=== PATIENT | male | born 1950 | race Caucasian/White ===

== ENCOUNTER 2019-11-20 07:59 | Outpatient (RCR) | payer MEDICARE, SELFPAY ==
--- NOTE | 2019-11-20 08:40 | PTOPEVAL ---
Thank you for referring this patient to [facility]. Please review, sign, date and return this plan of care MAGNOLIA. I agree with and certify that the following plan of care is medically necessary. Referring Physician Date Admitting Provider: Attending Provider: Dino Avina MD Referring Provider: *PT Outpatient Evaluation Start: 11/20/19 08:05 Freq: Status: Active Protocol: Document 11/20/19 08:06 [email or web address] (Rec: 11/20/19 08:39 [id number]) Therapy Assessment Status Assessment Status Assessment Status Evaluation Evaluation Information Problem Diagnosis low back pain, OA lumbar spine Onset 11/20/18 Subjective Information Pt. reports progressive pain Query Text:As Reported By Patient/ increase over the past year. Family He reports that walking on concrete is the most painful activity. He describes pain along the bilateral greater trochanter. He reports that he enjoys golf, but notes that it has recently increased his pain. Pt. reports he underwent xray of the back and hips, which revealed OA of the lumbar spine. He states that pain does not affect his sleep. He reports that his goal is to decrease his pain with walking and standing. Prior Level of Function Activity Level (Last 3 Months) Occupation retired Hand [employer] Right Activity of Daily Living Ability Independent Indoor/Home Mobility Independent Community Mobility Independent Stairs Ability Independent Functional Cognition (Planning, Shopping Independent , Taking Medications) Cooking Yes Cleaning Yes Laundry Yes Shopping Yes Driving Yes Medications Home Meds (Include: OTC, RX, Vitamins, Pt. is not taking pain Herbals, Dose, Route,and Frequency) medication Query Text:Home Med Entries Will No Longer Recall From Past Visits. Home Meds Must Be Re-entered With Each Visit. Pain Assessment Timing of Pain Assessment Timing of Pain Assessment Pre-Treatment Pain Scale Pain Scale Used Numeric (1 - 10) Self Report Pain Assessment Bilateral Upper Lateral Thigh(s) Reported Pain Level 2 Pain Description Aching Pain Freq
== END 2019-12-17 10:17 | disposition home or self-care (01) ==
LOC: CHSPT 07:59
PROVIDERS: Visit Provider Orthopaedic Surgery
DX: M54.5 Low back pain (principal); M47.896 Other spondylosis, lumbar region
CPT/HCPCS: 97014; 97110; 97140; 97161; G0283

== ENCOUNTER 2020-01-19 11:17 | Outpatient (CLI) | payer MEDICARE, SELFPAY ==
[2020-01-19 11:55] LABS: Hemoglobin A1C 10.6 % (<5.7)
[2020-01-19 13:09] LABS: Alanine Aminotransferase 57 U/L (16-63); Albumin Level 4.3 g/dL (3.4-5.0); Alkaline Phosphatase 93 U/L (46-116); Anion Gap 13.2 mmol/L (7-16); Aspartate Amino Transferase 28 U/L (15-37); Bilirubin,Total 1.2 mg/dL (0.00-1.00); Blood Urea Nitrogen 24 mg/dL (7-18); Carbon Dioxide 27 mmol/L (21-32); Chloride 102 mmol/L (98-108); Cholesterol 97 mg/dL (0-200); Estimated Glomerular Filt Rate > 60; Glucose 215 mg/dL (70-99); HDL Direct 30 mg/dL (40-60); LDL Cholesterol Calculated 53 mg/dL (<130); Osmolality Calculated 296 mOsm/kg (285-295); Potassium 4.2 mmol/L (3.5-5.1); Sodium 138 mmol/L (136-145); Total Protein 7.6 g/dL (6.4-8.2); Triglycerides 68 mg/dL (0-150)
== END 2020-01-19 11:18 | disposition home or self-care (01) ==
PROVIDERS: PCP Internal Medicine; Visit Provider Internal Medicine
DX: I10 Essential (primary) hypertension (principal); E11.9 Type 2 diabetes mellitus without complications
CPT/HCPCS: 36415; 80053; 80061; 83036

== ENCOUNTER 2021-11-09 07:34 | Emergency (ER) | payer MEDICARE, SELFPAY ==
[2021-11-09 07:54] VITALS: BP 156/102; PULSE 102; RESP 20; TEMP 36.3; O2SAT 96
--- NOTE | 2021-11-09 08:03 | ED.NECK ---
HPI - Neck Pain/Injury General Chief Complaint: Neck Pain/Injury Stated Complaint: Neck spasms Source: patient and family Mode of arrival: ambulatory Limitations: no limitations History of Present Illness HPI Narrative: This is a 71-year-old gentleman that presents with neck pain and spasm, with no known injury patient was seen at a [place] yesterday was given a muscle relaxant, but states that he has continued to have this muscle spasm with decreased range of motion his neck no numbness or tingling radiating down his neck are into his shoulders or arms, no fever or chills. complaint: neck pain Onset (ago): day(s) Place: home Severity: moderate Severity scale (1-10): 5 Quality: spasming Duration: constant Relieving factors: immobilization Exacerbating factors: movement of extremity Related Data Home Medications Medication Instructions Recorded Confirmed allopurinol 300 mg tablet 300 mg PO DAILY 11/17/19 aspirin 325 mg tablet 325 mg PO DAILY 11/17/19 atorvastatin 80 mg tablet 80 mg PO DAILY 11/17/19 finasteride 5 mg tablet 5 mg PO DAILY 11/17/19 fosinopril 20 mg tablet 20 mg PO DAILY 11/17/19 glimepiride 4 mg tablet 4 mg PO QAM 11/17/19 latanoprost 0.005 % eye drops 1 drop EACH EYE DAILY 11/17/19 magnesium 200 mg tablet 200 mg PO DAILY 11/17/19 magnesium 200 mg tablet 200 mg PO DAILY 11/17/19 nifedipine 60 mg tablet,extended 60 mg PO DAILY 11/17/19 release 24 hr omeprazole 20 mg capsule,delayed 20 mg PO DAILY 11/17/19 release terazosin 5 mg capsule 5 mg PO DAILY 11/17/19 Allergies Allergy/AdvReac Type Severity Reaction Status Date / Time No Known Allergies Allergy Verified 11/09/21 07:53 Review of Systems Review of Systems: All systems reviewed & are unremarkable except as noted in HPI and below PMFSH Past Medical History Medical History Diabetes Last A1C= 8 Gout Osteoarthritis of lumbar spine Stroke Surgical History Surgical History History of knee surgery Right Total knee replacement, with subsequent patellectomy. Kidney stones Removal Family History Family History Father Diabetes mellitus Hypertension Cerebrovascular accident Social History Social History Smoking status: Never smoker Alcohol intake: current Alcohol use details: occasional Additional living arrangements comments: [facility] Exam Const: General: no acute distress Orientation/consciousness: patient oriented x3 HENMT: Head: normal to inspection Eyes: Conjunctivae: conjunctivae normal Pupils: Equal, round and reactive pupils present Neck: Neck: no lymphadenopathy and no meningeal signs Other: Decreased range of motion and spasm of his neck Chest: Chest palpation & inspection: normal inspection of the chest Resp: Effort & Inspection: normal respiratory effort Cardio: Rate: regular rate Rhythm: regular rhythm GI: GI Palp: Yes Soft to palpation : Testes: Testes normal Urinary Catheter: Urinary Catheter: patent and draining Back/Spine/Pelvis: Back: no CVA tenderness Skin: General skin exam: normal color Rashes: no rashes Neuro: General: patient oriented x3, moves all extremities, no meningeal signs and CN's II-XI intact bilaterally Extrem: General: normal to inspection and no pedal edema Psych: Mental Status: mental status grossly normal Course Course Emergency Course: patient received 30mg IM injection of Toradol, advised to call his primary care physician and follow-up advised to use a heating pad after reassessment of patient is neck spasm is mildly improved. Vital Signs Vital signs: Vital Signs Temperature 36.3 C L 11/09/21 07:54 Pulse Rate 102 H 11/09/21 07:54 Respiratory Rate 20 11/09/21 07:54 Blood Pressure 156/
[2021-11-09] MEDS: KETOROLAC 30 MG/ML VIAL (*BKC) IM (08:07)
== END 2021-11-09 08:27 | disposition home or self-care (01) ==
PROVIDERS: Emergency Provider Emergency Medicine; PCP Internal Medicine
DX: M43.6 Torticollis (principal); S16.1XXA Strain of muscle, fascia and tendon at neck level, initial encounter
CPT/HCPCS: 96372; 99283; J1885

== ENCOUNTER 2024-06-02 21:07 | Emergency (ER) | payer MEDICARE, SELFPAY ==
[2024-06-02 21:07] VITALS: BP 163/84; PULSE 102; RESP 18; TEMP 37.2; O2SAT 94
--- NOTE | 2024-06-02 22:17 | ED.URI ---
HPI - URI/Sore Throat General Chief Complaint: Upper Respiratory Infection Stated Complaint: URI Time Seen by Provider: 06/02/24 21:23 History of Present Illness HPI Narrative: Pt presents with low grade fever and mild cough and body aches today. Granchildren who they were with recently tested positive for covid. Related Data Home Medications Medication Instructions Recorded Confirmed allopurinol 300 mg tablet 300 mg PO DAILY 11/17/19 aspirin 325 mg tablet 325 mg PO DAILY 11/17/19 atorvastatin 80 mg tablet 80 mg PO DAILY 11/17/19 finasteride 5 mg tablet 5 mg PO DAILY 11/17/19 fosinopril 20 mg tablet 20 mg PO DAILY 11/17/19 glimepiride 4 mg tablet 4 mg PO QAM 11/17/19 latanoprost 0.005 % eye drops 1 drop ophthalmic (eye) DAILY 11/17/19 magnesium 200 mg tablet 200 mg PO DAILY 11/17/19 magnesium 200 mg tablet 200 mg PO DAILY 11/17/19 nifedipine 60 mg tablet,extended 60 mg PO DAILY 11/17/19 release 24 hr omeprazole 20 mg capsule,delayed 20 mg PO DAILY 11/17/19 release terazosin 5 mg capsule 5 mg PO DAILY 11/17/19 Allergies Allergy/AdvReac Type Severity Reaction Status Date / Time No Known Allergies Allergy Verified 01/21/23 15:28 Review of Systems Review of Systems: All systems reviewed & are unremarkable except as noted in HPI and below PMFSH Past Medical History Medical History Diabetes Last A1C= 8 Gout Osteoarthritis of lumbar spine Stroke Surgical History Surgical History History of knee surgery Right Total knee replacement, with subsequent patellectomy. Kidney stones Removal Family History Family History (System 01/21/23 @ 15:28 by Shelbie Helm) Father Diabetes mellitus Hypertension Cerebrovascular accident Social History Social History (System 01/21/23 @ 15:28 by Shelbie Helm) Smoking status: Never smoker Alcohol intake: current Alcohol use details: occasional Living arrangements: with family Additional living arrangements comments: [facility] Occupation/Education: retired Exam Const: General: healthy appearing Nutritional Appearance: well nourished Orientation/consciousness: patient oriented x3 Limitations: no limitations HENMT: Face/Nose/Sinus: Normal external nose present Mouth: Yes Normal oral and palatal mucosa present Neck: Neck: normal visual inspection, no lymphadenopathy and no meningeal signs Resp: Effort & Inspection: normal respiratory effort Auscultation: clear to auscultation bilaterally Cardio: Rate: regular rate Rhythm: regular rhythm GI: GI Palp: Yes Soft to palpation and No Tenderness to palpation present (GI) Auscultation: normal bowel sounds Skin: General skin exam: normal color Rashes: no rashes Wounds: no wounds Neuro: General: patient oriented x3, moves all extremities, no meningeal signs and no focal motor deficits Speech: normal speech Extrem: General: normal to inspection and no clubbing, cyanosis or edema Psych: Mental Status: mental status grossly normal Affect: normal affect Attitude: cooperative MDM - URI/Sore Throat MDM Narrative Medical decision making narrative: pt presents with covid symptoms will swab for covid flu rsv. covid positive. not high risk so supportive care no paxlovid. Lab Data Labs: Lab Results 06/02/24 Range/Units 22:59 Influenza A (RT-PCR) Negative (Negative) Influenza B (RT-PCR) Negative (Negative) RSV (RT-PCR) Negative (Negative) SARS-CoV-2 RNA (RT-PCR) Positive A (Negative) Discharge Plan Discharge Clinical Impression: COVID Patient Disposition: Home, Self-Care Condition: Stable Instructions: Antibiotic Form, COVID-19 (Coronavirus Disease 2019) (ED) Prescriptions: No Action tramadol [Ultram] 50 mg tablet 50 mg PO HS Qty: 20 0RF allopurinol 300 mg tablet 300 mg PO DAILY aspirin 325 mg table
[2024-06-02 22:38] LABS: SARS-CoV-2 RNA PCR Positive (Negative)
[2024-06-02 22:43] LABS: Influenza A QL RT-PCR Negative (Negative); Influenza B QL RT-PCR Negative (Negative); RSV RNA, RT-PCR Negative (Negative)
[2024-06-02 22:55] VITALS: BP 157/80; PULSE 95; RESP 18; TEMP 37.2; O2SAT 94
== END 2024-06-02 22:55 | disposition home or self-care (01) ==
PROVIDERS: Emergency Provider Emergency Medicine; PCP Internal Medicine
DX: U07.1 COVID-19 (principal); E11.9 Type 2 diabetes mellitus without complications
CPT/HCPCS: 87637; 99283

== ENCOUNTER 2024-09-08 09:34 | Outpatient (CLI) | payer MEDICARE, SELFPAY ==
[2024-09-08 09:47] LABS: Basophils Absolute Auto 0.04 K/mm3 (0.00-0.10); Basophils Percent Auto 0.5 % (0.0-1.0); Eosinophils Absolute Auto 0.19 K/mm3 (0.02-0.50); Eosinophils Percent Auto 2.4 % (1.0-6.0); Hematocrit 47.1 % (37.0-46.0); Hemoglobin 16.1 g/dL (12.4-15.3); Immature Granulocyte Absolute 0.02 K/mm3 (0.00-0.00); Immature Granulocyte Percent A 0.3 % (0.0-0.0); Lymphocytes Absolute Auto 1.71 K/mm3 (1.10-4.50); Mean Corpuscular HGB Conc 34.2 g/dL (32-36); Mean Corpuscular Hemoglobin 31.1 pg (27.0-31.0); Mean Corpuscular Volume 90.9 fL (78.0-102.0); Mean Platelet Volume 10.5 fl (8.7-11.0); Monocytes Absolute Auto 0.63 K/mm3 (0.10-0.90); Monocytes Percent Auto 8.1 % (2.0-11.0); Neutrophils Absolute Auto 5.18 K/mm3 (1.70-7.20); Neutrophils Percent Auto 66.7 % (50.0-70.0); Platelet Count Result 213 K/mm3 (150-420); Red Blood Count 5.18 M/mm3 (4.70-6.10); Red Cell Distribution Width 12.9 % (11.6-14.4); White Blood Count 7.8 K/mm3 (4.8-10.8)
[2024-09-08 09:59] LABS: Hemoglobin A1C 6.4 % (<5.7)
[2024-09-08 10:24] LABS: Alanine Aminotransferase 47 U/L (16-63); Albumin Level 3.9 g/dL (3.4-5.0); Alkaline Phosphatase 82 U/L (46-116); Anion Gap 10 mmol/L (4-12); Aspartate Amino Transferase 24 U/L (15-37); Bilirubin,Total 0.8 mg/dL (0.00-1.00); Blood Urea Nitrogen 14 mg/dL (7-18); Carbon Dioxide 29 mmol/L (21-32); Chloride 102 mmol/L (98-108); Cholesterol 148 mg/dL (0-200); Estimated Glomerular Filt Rate > 60; Glucose 145 mg/dL (70-99); HDL Direct 42 mg/dL (40-60); LDL Cholesterol Calculated 88 mg/dL (<130); Osmolality Calculated 295 mOsm/kg (285-295); Potassium 4.4 mmol/L (3.5-5.1); Sodium 141 mmol/L (136-145); Total Protein 7.3 g/dL (6.4-8.2); Triglycerides 88 mg/dL (0-150)
== END 2024-09-08 09:35 | disposition home or self-care (01) ==
LOC: CHSLAB 09:37
PROVIDERS: PCP Internal Medicine; Visit Provider Internal Medicine
DX: I10 Essential (primary) hypertension (principal); E11.9 Type 2 diabetes mellitus without complications
CPT/HCPCS: 36415; 80053; 80061; 83036; 85025

== ENCOUNTER 2024-09-22 13:55 | Outpatient (CLI) | payer MEDICARE, SELFPAY ==
[2024-09-22 14:14] LABS: Basophils Absolute Auto 0.05 K/mm3 (0.00-0.10); Basophils Percent Auto 0.4 % (0.0-1.0); Eosinophils Absolute Auto 0.27 K/mm3 (0.02-0.50); Eosinophils Percent Auto 2.3 % (1.0-6.0); Hematocrit 48.4 % (37.0-46.0); Hemoglobin 16.7 g/dL (12.4-15.3); Immature Granulocyte Absolute 0.06 K/mm3 (0.00-0.00); Immature Granulocyte Percent A 0.5 % (0.0-0.0); Lymphocytes Absolute Auto 2.25 K/mm3 (1.10-4.50); Lymphocytes Percent Auto 18.8 % (18.0-42.0); Mean Corpuscular HGB Conc 34.5 g/dL (32-36); Mean Corpuscular Hemoglobin 31.5 pg (27.0-31.0); Mean Corpuscular Volume 91.3 fL (78.0-102.0); Mean Platelet Volume 10.7 fl (8.7-11.0); Monocytes Absolute Auto 0.85 K/mm3 (0.10-0.90); Monocytes Percent Auto 7.1 % (2.0-11.0); Neutrophils Absolute Auto 8.46 K/mm3 (1.70-7.20); Neutrophils Percent Auto 70.9 % (50.0-70.0); Platelet Count Result 227 K/mm3 (150-420); Red Cell Distribution Width 12.8 % (11.6-14.4); White Blood Count 11.9 K/mm3 (4.8-10.8)
== END 2024-09-22 13:56 | disposition home or self-care (01) ==
LOC: CHSLAB 13:58
PROVIDERS: PCP Internal Medicine; Visit Provider Internal Medicine
DX: R89.9 Unspecified abnormal finding in specimens from other organs, systems and tissues (principal)
CPT/HCPCS: 36415; 85025

== ENCOUNTER 2024-12-16 14:31 | Outpatient (CLI) | payer MEDICARE, SELFPAY ==
[2024-12-16 14:52] LABS: Basophils Percent Auto 0.3 % (0.2-1.2); Eosinophils Absolute Auto 0.2 K/mm3 (0-0.3); Eosinophils Percent Auto 1.6 % (0-4.4); Hematocrit 48.7 % (42.0-52.0); Hemoglobin 16.9 g/dL (14.0-18.0); Immature Granulocyte Absolute 0.04 K/mm3 (0.00-0.031); Immature Granulocyte Percent A 0.3 % (0-0.5); Lymphocytes Absolute Auto 1.85 K/mm3 (0.9-3.2); Lymphocytes Percent Auto 15.5 % (18.3-44.2); Mean Corpuscular HGB Conc 34.7 g/dl (32-36); Mean Corpuscular Hemoglobin 31.5 pg (26-34); Mean Corpuscular Volume 90.9 fl (80-100); Mean Platelet Volume 10.7 fl (7.4-10.4); Monocytes Absolute Auto 0.9 K/mm3 (0.1-0.6); Monocytes Percent Auto 7.6 % (2.6-8.5); Neutrophils Absolute Auto 8.9 K/mm3 (1.3-6.7); Neutrophils Percent Auto 74.7 % (45.5-73.1); Platelet Count Result 219 k/mm3 (150-375); Red Blood Count 5.36 M/mm3 (4.6-6.20); Red Cell Distribution Width 12.6 % (11.5-14.5); White Blood Count 11.9 K/mm3 (4.5-10.0)
--- OUTSIDE RECORDS SUMMARY | 2024-12-16 16:48 | XMS_ITS | Data Portability ---
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 Olu if he gets worse he was told to go to the emergency room Not available 10/05/2023 16:04:24 Plan of Treatment Reminders Order Date Submit Date Provider Last Modified By Organization Details Last Modified Time Details Appointments None recorded. Lab urinalysis, microscopic 2022 023 [email or web address] Not available 3 09:16:21 culture, urine + sensitivity 2022 023 cyahl Not available 3 09:16:27 HbA1c (hemoglobin A1c), blood 2022 023 [email or web address] Not available 3 11:53:26 CBC w/ auto diff 2022 023 [email or web address] Not available 3 14:26:48 lipid panel, serum 2022 023 [email or web address] Not available 3 14:26:48 CMP, serum or plasma 2022 023 Not available 3 14:26:48 Referral None recorded. Procedures None recorded. Surgeries None recorded. Imaging None recorded. Medication Orders Cipro 500 mg tablet 2022 023 [email or web address] [facility]/Pharmacy #[id number], [address] [place], [address], 3 15:59:56 Diflucan 100 mg tablet 2022 023 [email or web address] [facility]/Pharmacy #[id number], [address] [place], [address], 3 13:02:32 Patient TargetsNo targets recorded. Patient InstructionsNo instructions recorded. Reason for Referral None Reported. Results Created Date Observation Date Name Description Value Unit Range Abnormal Flag Note LastModifiedBy Organization Detail LastModifiedTime 04/05/20 22 04/05/2022 COMPR EHENS ELIZABETH METAB OLIC PANEL sodium 140 mmol/ L 137-14 5 Not Available [facility] (Lab) [address] [place], [address], 04/05/2022 18:54:21 04/05/20 22 04/05/2022 COMPR EHENS ELIZABETH METAB OLIC PANEL potassium 4.6 mmol/ L 3.5-5. 1 Not Available [facility] (Lab) [address] [place], [address], 04/05/2022 18:54:21 04/05/20 22 04/05/2022 COMPR EHENS ELIZABETH METAB OLIC PANEL chloride 105 mmol/ L 98-107 Not Available [facility] (Lab) [address] [place], [address], 04/05/2022 18:54:21 04/05/20 22 04/05/2022 COMPR EHENS ELIZABETH METAB OLIC PANEL carbon dioxide 27 mmol/ L 22-30 Not Available [facility] (Lab) [address] [place], [address], 04/05/2022 18:54:21 04/05/20 22 04/05/2022 COMPR EHENS ELIZABETH METAB OLIC PANEL anion gap 12.6 mmol/ L 14-22 low Not Available [facility] (Lab) [address] [place], [address], 04/05/2022 18:54:21 04/05/20 22 04/05/2022 COMPR EHENS ELIZABETH METAB OLIC PANEL glucose 153 mg/dL 70-99 high Not Available [facility] (Lab) [address] [place], [address], 04/05/2022 18:54:21 04/05/20 22 04/05/2022 COMPR EHENS ELIZABETH METAB OLIC PANEL BUN 27 mg/dL 8-19 high Not Available [facility] (Lab) [address] [place], [address], 04/05/2022 18:54:21 04/05/20 22 04/05/2022 COMPR EHENS ELIZABETH METAB OLIC PANEL creatinine 1.09 mg/dL 0.66-1 .25 Not Available [facility] (Lab) [address] [place], [address], 04/05/2022 18:54:21 04/05/20 22 04/05/2022 COMPR EHENS ELIZABETH METAB OLIC PANEL GFR >60 Refer ence Range : Pitkin ge GFR Healt hy Adult : >60 mL/mi n/1.7 3 m2 Chron ic Kidne y Disea se: 15-60 mL/mi n/1.7 3 m2 Kidne y Failu re: <15/m L/min /1.73 m2 www.n iddk. nih.g ov The MDRD study equat ion has not been valid ated in child arthur <18 years of age; pregn ant women ; the elder ly >85 years of age; or in some racia l or ethni c subgr oups, such as Hispa nics. Outsi de the valid ated lane eters , estim ated GFR is less accur ate, requi ring clini geraldine judgm ent on a case- by-ca se basis . Clini geraldine inter preta tion for other races and ages must be made by the clini erlinda. The MDRD study equat ion has not been valid ated for the evalu ation of serum creat inine relat ed to nutri lakshmi l statu s or medic ation usage . For perso ns <18 years of age, a pedia tric GFR calcu lator is avail able on the [facility] websi te: https ://patric w.kid priscila.o rg/pr ofess ional s/kdo qi/gf r_cal culat or Not Available [facility] (Lab) [address] [place], [address], 04/05/2022 18:54:21 04/05/20 22 04/05/2022 COMPR EHENS ELIZABETH METAB OLIC PANEL alkaline phosphatase 73 U/L 38-126 Not Available [facility] (Lab) [address] [place], [address], 04/05/2022 18:54:21 04/05/20 22 04/05/2022 COMPR EHENS ELIZABETH METAB OLIC PANEL alanine aminotransfe rase 44 U/L 0-50 Not Available [facility] (Lab) [address] [place], [address], 04/05/2022 18:54:21 04/05/20 22 04/05/2022 COMPR EHENS ELIZABETH METAB OLIC PANEL aspartate aminotransfe rase 43 U/L 15-46 Not Available [facility] (Lab) [address] [place], [address], 04/05/2022 18:54:21 04/05/20 22 04/05/2022 COMPR EHENS ELIZABETH METAB OLIC PANEL bilirubin, total 1.10 mg/dL 0.20-1 .30 Not Available [facility] (Lab) [address] [place], [address], 04/05/2022 18:54:21 04/05/20 22 04/05/2022 COMPR EHENS ELIZABETH METAB OLIC PANEL calcium 9.5 mg/dL 8.4-10 .2 Not Available [facility] (Lab) [address] [place], [address], 04/05/2022 18:54:21 04/05/20 22 04/05/2022 COMPR EHENS ELIZABETH METAB OLIC PANEL total protein 8.0 g/dL 6.3-8. 2 Not Available [facility] (Lab) [address] [place], [address], 04/05/2022 18:54:21 04/05/20 22 04/05/2022 COMPR EHENS ELIZABETH METAB OLIC PANEL albumin 4.6 g/dL 3.0-4. 4 high Not Available [facility] (Lab) [address] [place], [address], 04/05/2022 18:54:21 04/05/20 22 04/05/2022 COMPR EHENS ELIZABETH METAB OLIC PANEL globulin 3.4 g/dL 2.6-4. 2 Not Available [facility] (Lab) [address] [place], [address], 04/05/2022 18:54:21 04/05/20 22 04/05/2022 COMPR EHENS ELIZABETH METAB OLIC PANEL A/G ratio 1.4 ratio 1.0-2. 0 Not Available [facility] (Lab) [address] [place], [address], 04/05/2022 18:54:21 04/05/20 22 04/05/2022 LIPID PANEL cholesterol 131 mg/dL 140-19 9 low [facility] NSUS RECOM MENDA TION FOR EMANUEL STERO L: ADULT CHILD LOW RISK: <200 <170 BORDE RLINE : <200- 239 ----- HIGH RISK: >240 >200 Not Available [facility] (Lab) [address] [place], [address], 04/05/2022 18:54:20 04/05/20 22 04/05/2022 LIPID PANEL triglyceride s 118 mg/dL 0-150 [facility] NSUS REPOR T RECOM MENDA TION FOR TRIGL YCERI GÓMEZ: ADULT CHILD LOW RISK: <150 ----- BODER LINE: 150-1 99 ----- HIGH RISK: >200 ----- Not Available [facility] (Lab) [address] [place], [address], 04/05/2022 18:54:20 04/05/20 22 04/05/2022 LIPID PANEL HDL cholesterol 37 mg/dL 40- low Not Available [facility] (Lab) [address] [place], [address], 04/05/2022 18:54:20 04/05/20 22 04/05/2022 LIPID PANEL LDL cholesterol, calculated 70 mg/dL 0-130 [facility] NSUS REPOR T RECOM MENDA TIONS FOR LDL: ADULT CHILD LOW RISK <130 <110 (OPTI MAL LDL) <100 ----- BORDE RLINE : 130-1 59 ----- HIGH RISK: >160 >130 A TRIGL YCERI DE RESUL T >400 INVAL IDATE S THE CALCU LATIO N FOR LDL FRACT IONAT ION - THE LDL RESUL T WILL NOT BE REPOR EMILE. Not Available [facility] (Lab) [address] [place], [address], 04/05/2022 18:54:20 04/05/20 22 04/05/2022 HEMOG LOBIN A1C HA1C 7.8 % 4.0-6. 0 high Diabe jarocho Scree douglas Crite grayson: <5.7% Consi stent with absen ce of diabe jarocho 5.7-6 .4% Consi stent with incre ased risk for diabe jarocho (pred iabet es) >OR=6 .5% Consi stent with diabe jarocho REFER ENCE: Diabe jarocho Care 2016, 39(Luna ppl.1 ):s13 -s22 Not Available [facility] (Lab) [address] [place], [address], 04/05/2022 14:44:02 08/02/2008/02/2022 HEMOG LOBIN A1C HA1C 6.6 % 4.0-6. 0 high Diabe jarocho Edgare douglas Crite grayson: <5.7% Consi stent with absen ce of diabe jarocho 5.7-6 .4% Consi stent with incre ased risk for diabe jarocho (pred iabet es) >OR=6 .5% Consi stent with diabe jarocho REFER ENCE: Diabe jarocho Care 2016, 39(Luna ppl.1 ):s13 -s22 Not Available [facility] (Lab) [address] [place], [address], 08/02/2022 21:14:28 08/02/20 22 08/02/2022 LIPID PANEL cholesterol 118 mg/dL 140-19 9 low [facility] NSUS RECOM MENDA TION FOR EMANUEL STERO L: ADULT CHILD LOW RISK: <200 <170 BORDE RLINE : <200- 239 ----- HIGH RISK: >240 >200 Not Available [facility] (Lab) [address] [place], [address], 08/02/2022 20:27:55 08/02/20 22 08/02/2022 LIPID PANEL triglyceride s 106 mg/dL 0-150 [facility] NSUS REPOR T RECOM MENDA TION FOR TRIGL YCERI GÓMEZ: ADULT CHILD LOW RISK: <150 ----- BODER LINE: 150-1 99 ----- HIGH RISK: >200 ----- Not Available [facility] (Lab) [address] [place], [address], 08/02/2022 20:27:55 08/02/20 22 08/02/2022 LIPID PANEL HDL cholesterol 36 mg/dL 40- low Not Available [facility] (Lab) [address] [place], [address], 08/02/2022 20:27:55 08/02/20 22 08/02/2022 LIPID PANEL LDL cholesterol, calculated 61 mg/dL 0-130 [facility] NSUS REPOR T RECOM MENDA TIONS FOR LDL: ADULT CHILD LOW RISK <130 <110 (OPTI MAL LDL) <100 ----- BORDE RLINE : 130-1 59 ----- HIGH RISK: >160 >130 A TRIGL YCERI DE RESUL T >400 INVAL IDATE S THE CALCU LATIO N FOR LDL FRACT IONAT ION - THE LDL RESUL T WILL NOT BE REPOR EMILE. Not Available [facility] (Lab) [address] [place], [address], 08/02/2022 20:27:55 08/02/2008/02/2022 COMPR EHENS ELIZABETH METAB OLIC PANEL sodium 141 mmol/ L 137-14 5 Not Available [facility] (Lab) [address] [place], [address], 08/02/2022 20:27:50 08/02/20 22 08/02/2022 COMPR EHENS ELIZABETH METAB OLIC PANEL potassium 4.7 mmol/ L 3.5-5. 1 Not Available [facility] (Lab) [address] [place], [address], 08/02/2022 20:27:50 08/02/20 22 08/02/2022 COMPR EHENS ELIZABETH METAB OLIC PANEL chloride 102 mmol/ L 98-107 Not Available [facility] (Lab) [address] [place], [address], 08/02/2022 20:27:50 08/02/20 22 08/02/2022 COMPR EHENS ELIZABETH METAB OLIC PANEL carbon dioxide 28 mmol/ L 22-30 Not Available [facility] (Lab) [address] [place], [address], 08/02/2022 20:27:50 08/02/20 22 08/02/2022 COMPR EHENS ELIZABETH METAB OLIC PANEL anion gap 15.7 mmol/ L 14-22 Not Available [facility] (Lab) [address] [place], [address], 08/02/2022 20:27:50 08/02/20 22 08/02/2022 COMPR EHENS ELIZABETH METAB OLIC PANEL glucose 117 mg/dL 70-99 high Not Available [facility] (Lab) [address] [place], [address], 08/02/2022 20:27:50 08/02/20 22 08/02/2022 COMPR EHENS ELIZABETH METAB OLIC PANEL BUN 23 mg/dL 8-19 high Not Available [facility] (Lab) [address] [place], [address], 08/02/2022 20:27:50 08/02/20 22 08/02/2022 COMPR EHENS ELIZABETH METAB OLIC PANEL creatinine 0.98 mg/dL 0.66-1 .25 Not Available [facility] (Lab) [address] [place], [address], 08/02/2022 20:27:50 08/02/20 22 08/02/2022 COMPR EHENS ELIZABETH METAB OLIC PANEL GFR >60 Refer ence Range : Pitkin ge GFR Healt hy Adult : >60 mL/mi n/1.7 3 m2 Chron ic Kidne y Disea se: 15-60 mL/mi n/1.7 3 m2 Kidne y Failu re: <15/m L/min /1.73 m2 www.n iddk. nih.g ov The MDRD study equat ion has not been valid ated in child arthur <18 years of age; pregn ant women ; the elder ly >85 years of age; or in some racia l or ethni c subgr oups, such as Hispa nics. Outsi de the valid ated lane eters , estim ated GFR is less accur ate, requi ring clini geraldine judgm ent on a case- by-ca se basis . Clini geraldine inter preta tion for other races and ages must be made by the clini erlinda. The MDRD study equat ion has not been valid ated for the evalu ation of serum creat inine relat ed to nutri lakshmi l statu s or medic ation usage . For perso ns <18 years of age, a pedia tric GFR calcu lator is avail able on the [facility] websi te: https ://ww w.kid priscila.o rg/pr ofess ional s/kdo qi/gf r_cal culat or Not Available [facility] (Lab) [address] [place], [address], 08/02/2022 20:27:50 08/02/20 22 08/02/2022 COMPR EHENS ELIZABETH METAB OLIC PANEL alkaline phosphatase 84 U/L 38-126 Not Available [facility] (Lab) [address] [place], [address], 08/02/2022 20:27:50 08/02/20 22 08/02/2022 COMPR EHENS ELIZABETH METAB OLIC PANEL alanine aminotransfe rase 38 U/L 0-50 Not Available [facility] (Lab) [address] [place], [address], 08/02/2022 20:27:50 08/02/20 22 08/02/2022 COMPR EHENS ELIZABETH METAB OLIC PANEL aspartate aminotransfe rase 33 U/L 15-46 Not Available [facility] (Lab) [address] [place], [address], 08/02/2022 20:27:50 08/02/20 22 08/02/2022 COMPR EHENS ELIZABETH METAB OLIC PANEL bilirubin, total 1.10 mg/dL 0.20-1 .30 Not Available [facility] (Lab) [address] [place], [address], 08/02/2022 20:27:50 08/02/20 22 08/02/2022 COMPR EHENS ELIZABETH METAB OLIC PANEL calcium 9.7 mg/dL 8.4-10 .2 Not Available [facility] (Lab) [address] [place], [address], 08/02/2022 20:27:50 08/02/20 22 08/02/2022 COMPR EHENS ELIZABETH METAB OLIC PANEL total protein 8.4 g/dL 6.3-8. 2 high Not Available [facility] (Lab) [address] [place], [address], 08/02/2022 20:27:50 08/02/20 22 08/02/2022 COMPR EHENS ELIZABETH METAB OLIC PANEL albumin 4.9 g/dL 3.0-4. 4 high Not Available [facility] (Lab) [address] [place], [address], 08/02/2022 20:27:50 08/02/20 22 08/02/2022 COMPR EHENS ELIZABETH METAB OLIC PANEL globulin 3.5 g/dL 2.6-4. 2 Not Available [facility] (Lab) [address] [place], [address], 08/02/2022 20:27:50 08/02/20 22 08/02/2022 COMPR EHENS ELIZABETH METAB OLIC PANEL A/G ratio 1.4 ratio 1.0-2. 0 Not Available [facility] (Lab) [address] [place], [address], 08/02/2022 20:27:50 11/29/19 23 11/29/2022 HEMOG LOBIN A1C HA1C 6.6 % 4.0-6. 0 high Diabe jarocho Scree douglas Crite grayson: <5.7% Consi stent with absen ce of diabe jarocho 5.7-6 .4% Consi stent with incre ased risk for diabe jarocho (pred iabet es) >OR=6 .5% Consi stent with diabe jarocho REFER ENCE: Diabe jarocho Care 2016, 39(Luna ppl.1 ):s13 -s22 Not Available [facility] (Lab) [address] [place], [address], 11/29/2022 19:51:03 11/29/19 23 11/29/2022 LIPID PANEL cholesterol 113 mg/dL 140-19 9 low [facility] NSUS RECOM MENDA TION FOR EMANUEL STERO L: ADULT CHILD LOW RISK: <200 <170 BORDE RLINE : <200- 239 ----- HIGH RISK: >240 >200 Not Available [facility] (Lab) [address] [place], [address], 11/29/2022 17:50:09 11/29/19 23 11/29/2022 LIPID PANEL triglyceride s 92 mg/dL 0-150 [facility] NSUS REPOR T RECOM MENDA TION FOR TRIGL YCERI GÓMEZ: ADULT CHILD LOW RISK: <150 ----- BODER LINE: 150-1 99 ----- HIGH RISK: >200 ----- Not Available [facility] (Lab) [address] [place], [address], 11/29/2022 17:50:09 11/29/19 23 11/29/2022 LIPID PANEL HDL cholesterol 40 mg/dL 40- Not Available [facility] (Lab) [address] [place], [address], 11/29/2022 17:50:09 11/29/19 23 11/29/2022 LIPID PANEL LDL cholesterol, calculated 55 mg/dL 0-130 [facility] NSUS REPOR T RECOM MENDA TIONS FOR LDL: ADULT CHILD LOW RISK <130 <110 (OPTI MAL LDL) <100 ----- BORDE RLINE : 130-1 59 ----- HIGH RISK: >160 >130 A TRIGL YCERI DE RESUL T >400 INVAL IDATE S THE CALCU LATIO N FOR LDL FRACT IONAT ION - THE LDL RESUL T WILL NOT BE REPOR EMILE. Not Available [facility] (Lab) [address] [place], [address], 11/29/2022 17:50:09 11/29/19 23 11/29/2022 COMPR EHENS ELIZABETH METAB OLIC PANEL sodium 142 mmol/ L 137-14 5 Not Available [facility] (Lab) [address] [place], [address], 11/29/2022 17:50:05 11/29/19 23 11/29/2022 COMPR EHENS ELIZABETH METAB OLIC PANEL potassium 5.0 mmol/ L 3.5-5. 1 Not Available [facility] (Lab) [address] [facility] [place], [address], 11/29/2022 17:50:05 11/29/19 23 11/29/2022 COMPR EHENS ELIZABETH METAB OLIC PANEL chloride 103 mmol/ L 98-107 Not Available [facility] (Lab) [address] [place], [address], 11/29/2022 17:50:05 11/29/19 23 11/29/2022 COMPR EHENS ELIZABETH METAB OLIC PANEL carbon dioxide 28 mmol/ L 22-30 Not Available [facility] (Lab) [address] [place], [address], 11/29/2022 17:50:05 11/29/19 23 11/29/2022 COMPR EHENS ELIZABETH METAB OLIC PANEL anion gap 16.0 mmol/ L 14-22 Not Available [facility] (Lab) [address] [place], [address], 11/29/2022 17:50:05 11/29/19 23 11/29/2022 COMPR EHENS ELIZABETH METAB OLIC PANEL glucose 134 mg/dL 70-99 high Not Available [facility] (Lab) [address] [place], [address], 11/29/2022 17:50:05 11/29/19 23 11/29/2022 COMPR EHENS ELIZABETH METAB OLIC PANEL BUN 20 mg/dL 8-19 high Not Available [facility] (Lab) [address] [place], [address], 11/29/2022 17:50:05 11/29/1911/29/2022 COMPR EHENS ELIZABETH METAB OLIC PANEL creatinine 0.99 mg/dL 0.66-1 .25 Not Available [facility] (Lab) [address] [place], [address], 11/29/2022 17:50:05 11/29/19 23 11/29/2022 COMPR EHENS ELIZABETH METAB OLIC PANEL GFR >60 Refer ence Range : Pitkin ge GFR Healt hy Adult : >60 mL/mi n/1.7 3 m2 Chron ic Kidne y Disea se: 15-60 mL/mi n/1.7 3 m2 Kidne y Failu re: <15/m L/min /1.73 m2 www.n iddk. nih.g ov The MDRD study equat ion has not been valid ated in child arthur <18 years of age; pregn ant women ; the elder ly >85 years of age; or in some racia l or ethni c subgr oups, such as Hisid nics. Outsi de the valid ated lane eters , estim ated GFR is less accur ate, requi ring clini geraldine judgm ent on a case- by-ca se basis . Clini geraldine inter preta tion for other races and ages must be made by the clini erlinda. The MDRD study equat ion has not been valid ated for the evalu ation of serum creat inine relat ed to nutri lakshmi l statu s or medic ation usage . For perso ns <18 years of age, a pedia tric GFR calcu lator is avail able on the [facility] websi te: https ://patric francois.wayne mi/pr mary gerberal s/xino qi/gf r_cal culat or Not Available [facility] (Lab) [address] [place], [address], 11/29/2022 17:50:05 11/29/1911/29/2022 COMPR EHENS ELIZABETH METAB OLIC PANEL alkaline phosphatase 96 U/L 38-126 Not Available [facility] (Lab) [address] [place], [address], 11/29/2022 17:50:05 11/29/19 23 11/29/2022 COMPR EHENS ELIZABETH METAB OLIC PANEL alanine aminotransfe rase 41 U/L 0-50 Not Available [facility] (Lab) [address] [place], [address], 11/29/2022 17:50:05 11/29/19 23 11/29/2022 COMPR EHENS ELIZABETH METAB OLIC PANEL aspartate aminotransfe rase 35 U/L 15-46 Not Available [facility] (Lab) [address] [place], [address], 11/29/2022 17:50:05 11/29/19 23 11/29/2022 COMPR EHENS ELIZABETH METAB OLIC PANEL bilirubin, total 1.00 mg/dL 0.20-1 .30 Not Available [facility] (Lab) [address] [place], [address], 11/29/2022 17:50:05 11/29/19 23 11/29/2022 COMPR EHENS ELIZABETH METAB OLIC PANEL calcium 9.5 mg/dL 8.4-10 .2 Not Available [facility] (Lab) [address] [place], [address], 11/29/2022 17:50:05 11/29/19 23 11/29/2022 COMPR EHENS ELIZABETH METAB OLIC PANEL total protein 7.9 g/dL 6.3-8. 2 Not Available [facility] (Lab) [address] [place], [address], 11/29/2022 17:50:05 11/29/19 23 11/29/2022 COMPR EHENS ELIZABETH METAB OLIC PANEL albumin 4.6 g/dL 3.0-4. 4 high Not Available [facility] (Lab) [address] [place], [address], 11/29/2022 17:50:05 11/29/19 23 11/29/2022 COMPR EHENS ELIZABETH METAB OLIC PANEL globulin 3.3 g/dL 2.6-4. 2 Not Available [facility] (Lab) [address] [place], [address], 11/29/2022 17:50:05 11/29/19 23 11/29/2022 COMPR EHENS ELIZABETH METAB OLIC PANEL A/G ratio 1.4 ratio 1.0-2. 0 Not Available [facility] (Lab) [address] [place], [address], 11/29/2022 17:50:05 05/23/20 23 05/23/2023 CBC/C OMPLE TE BLD COUNT W/DIF F white blood cells 9.6 x10'3 /uL 4.2-10 .8 Not Available [facility] (Lab) [address] [place], [address], 05/23/2023 12:45:38 05/23/20 23 05/23/2023 CBC/C OMPLE TE BLD COUNT W/DIF F red blood cells 5.01 x10'6 /uL 4.10-5 .80 Not Available [facility] (Lab) [address] [place], [address], 05/23/2023 12:45:38 05/23/20 23 05/23/2023 CBC/C OMPLE TE BLD COUNT W/DIF F hemoglobin 15.4 g/dL 13.2-1 7.0 Not Available [facility] (Lab) [address] [place], [address], 05/23/2023 12:45:38 05/23/20 23 05/23/2023 CBC/C OMPLE TE BLD COUNT W/DIF F hematocrit 46.0 % 39.3-5 0.0 Not Available [facility] (Lab) [address] [place], [address], 05/23/2023 12:45:38 05/23/20 23 05/23/2023 CBC/C OMPLE TE BLD COUNT W/DIF F mean red cell volume 91.8 fL 80.0-9 7.0 Not Available [facility] (Lab) [address] [place], [address], 05/23/2023 12:45:38 05/23/20 23 05/23/2023 CBC/C OMPLE TE BLD COUNT W/DIF F mean red cell hemoglobin 30.7 pg 27.0-3 3.0 Not Available [facility] (Lab) [address] [place], [address], 05/23/2023 12:45:38 05/23/20 23 05/23/2023 CBC/C OMPLE TE BLD COUNT W/DIF F mean RBC HGB concentratio n 33.5 g/dL 31.0-3 6.0 Not Available [facility] (Lab) [address] [place], [address], 05/23/2023 12:45:38 05/23/20 23 05/23/2023 CBC/C OMPLE TE BLD COUNT W/DIF F red cell distribution width 12.8 % 11.8-1 5.5 Not Available [facility] (Lab) [address] [place], [address], 05/23/2023 12:45:38 05/23/20 23 05/23/2023 CBC/C OMPLE TE BLD COUNT W/DIF F platelets 195 x10'3 /uL 150-40 0 Not Available [facility] (Lab) [address] [place], [address], 05/23/2023 12:45:38 08/03/05/23/2023 CBC/C OMPLE TE BLD COUNT W/DIF F mean platelet volume 11.1 fL 9.0-12 .4 Not Available [facility] (Lab) [address] [place], [address], 05/23/2023 12:45:38 05/23/20 23 05/23/2023 CBC/C OMPLE TE BLD COUNT W/DIF F neutrophils 72.1 % 39.0-7 2.0 high Not Available [facility] (Lab) [address] [place], [address], 05/23/2023 12:45:38 05/23/2005/23/2023 CBC/C OMPLE TE BLD COUNT W/DIF F lymphocytes 18.7 % 16.0-4 7.0 Not Available [facility] (Lab) [address] [place], [address], 05/23/2023 12:45:38 05/23/2005/23/2023 CBC/C OMPLE TE BLD COUNT W/DIF F monocytes 7.0 % 5.0-12 .0 Not Available [facility] (Lab) [address] [place], [address], 05/23/2023 12:45:38 05/23/2005/23/2023 CBC/C OMPLE TE BLD COUNT W/DIF F eosinophils 1.7 % 1.0-7. 0 Not Available [facility] (Lab) [address] [place], [address], 05/23/2023 12:45:38 05/23/20 23 05/23/2023 CBC/C OMPLE TE BLD COUNT W/DIF F basophils 0.3 % 0.0-2. 0 Not Available [facility] (Lab) [address] [place], [address], 05/23/2023 12:45:38 05/23/20 23 05/23/2023 CBC/C OMPLE TE BLD COUNT W/DIF F immature granulocytes 0.2 % 0.00-0 .50 Not Available [facility] (Lab) [address] [place], [address], 05/23/2023 12:45:38 05/23/20 23 05/23/2023 CBC/C OMPLE TE BLD COUNT W/DIF F neutrophils, absolute count 6.88 x10'3 /uL 1.5-8. 0 Not Available [facility] (Lab) [address] [place], [address], 05/23/2023 12:45:38 05/23/20 23 05/23/2023 CBC/C OMPLE TE BLD COUNT W/DIF F lymphocytes, absolute count 1.79 x10'3 /uL 1.07-3 .43 Not Available [facility] (Lab) [address] [place], [address], 05/23/2023 12:45:38 05/23/20 23 05/23/2023 CBC/C OMPLE TE BLD COUNT W/DIF F monocytes, absolute count 0.67 x10'3 /uL 0.29-0 .99 Not Available [facility] (Lab) [address] [place], [address], 05/23/2023 12:45:38 05/23/20 23 05/23/2023 CBC/C OMPLE TE BLD COUNT W/DIF F eosinophils, absolute count 0.16 x10'3 /uL 0.02-0 .53 Not Available [facility] (Lab) [address] [place], [address], 05/23/2023 12:45:38 05/23/20 23 05/23/2023 CBC/C OMPLE TE BLD COUNT W/DIF F basophils, absolute count 0.03 x10'3 /uL 0.01-0 .08 Not Available [facility] (Lab) [address] [place], [address], 05/23/2023 12:45:38 05/23/20 23 05/23/2023 CBC/C OMPLE TE BLD COUNT W/DIF F immature granulocytes ,absolute 0.02 x10'3 /uL 0.00-0 .05 Not Available [facility] (Lab) [address] [place], [address], 05/23/2023 12:45:38 05/23/20 23 05/23/2023 CBC/C OMPLE TE BLD COUNT W/DIF F nucleated red blood cells 0.0 % -0 Not Available [facility] (Lab) [address] [place], [address], 05/23/2023 12:45:38 05/23/20 23 05/23/2023 CBC/C OMPLE TE BLD COUNT W/DIF F NRBC# 0.00 x10'3 /uL Not Available [facility] (Lab) [address] [place], [address], 05/23/2023 12:45:38 05/23/20 23 05/23/2023 LIPID PANEL cholesterol 114 mg/dL 140-19 9 low [facility] SAUD NSUS RECOM MENDA TION FOR EMANUEL STERO L: ADULT CHILD LOW RISK: <200 <170 BORDE RLINE : <200- 239 ----- HIGH RISK: >240 >200 Not Available [facility] (Lab) [address] [place], [address], 05/23/2023 13:20:04 05/23/20 23 05/23/2023 LIPID PANEL triglyceride s 104 mg/dL 0-150 [facility] SAUD NSUS REPOR T RECOM MENDA TION FOR TRIGL YCERI GÓMEZ: ADULT CHILD LOW RISK: <150 ----- BODER LINE: 150-1 99 ----- HIGH RISK: >200 ----- Not Available [facility] (Lab) [address] [place], [address], 05/23/2023 13:20:04 05/23/20 23 05/23/2023 LIPID PANEL HDL cholesterol 32 mg/dL 40- low Not Available [facility] (Lab) [address] [place], [address], 05/23/2023 13:20:04 05/23/20 23 05/23/2023 LIPID PANEL LDL cholesterol, calculated 61 mg/dL 0-130 [facility] SAUD NSUS REPOR T RECOM MENDA TIONS FOR LDL: ADULT CHILD LOW RISK <130 <110 (OPTI MAL LDL) <100 ----- BORDE RLINE : 130-1 59 ----- HIGH RISK: >160 >130 A TRIGL YCERI DE RESUL T >400 INVAL IDATE S THE CALCU LATIO N FOR LDL FRACT IONAT ION - THE LDL RESUL T WILL NOT BE REPOR EMILE. Not Available [facility] (Lab) [address] [place], [address], 05/23/2023 13:20:04 05/23/20 23 05/23/2023 COMPR EHENS ELIZABETH METAB OLIC PANEL sodium 140 mmol/ L 137-14 5 Not Available [facility] (Lab) [address] [place], [address], 05/23/2023 13:20:11 05/23/20 23 05/23/2023 COMPR EHENS ELIZABETH METAB OLIC PANEL potassium 4.5 mmol/ L 3.5-5. 1 Not Available [facility] (Lab) [address] [place], [address], 05/23/2023 13:20:11 05/23/20 23 05/23/2023 COMPR EHENS ELIZABETH METAB OLIC PANEL chloride 103 mmol/ L 98-107 Not Available [facility] (Lab) [address] [place], [address], 05/23/2023 13:20:11 05/23/20 23 05/23/2023 COMPR EHENS ELIZABETH METAB OLIC PANEL carbon dioxide 27 mmol/ L 22-30 Not Available [facility] (Lab) [address] [place], [address], 05/23/2023 13:20:11 05/23/20 23 05/23/2023 COMPR EHENS ELIZABETH METAB OLIC PANEL anion gap 14.5 mmol/ L 14-22 Not Available [facility] (Lab) [address] [place], [address], 05/23/2023 13:20:11 05/23/20 23 05/23/2023 COMPR EHENS ELIZABETH METAB OLIC PANEL glucose 129 mg/dL 70-99 high Not Available [facility] (Lab) [address] [place], [address], 05/23/2023 13:20:11 05/23/20 23 05/23/2023 COMPR EHENS ELIZABETH METAB OLIC PANEL BUN 16 mg/dL 8-19 Not Available [facility] (Lab) [address] [place], [address], 05/23/2023 13:20:11 05/23/20 23 05/23/2023 COMPR EHENS ELIZABETH METAB OLIC PANEL creatinine 0.86 mg/dL 0.66-1 .25 Not Available [facility] (Lab) [address] [place], [address], 05/23/2023 13:20:11 05/23/20 23 05/23/2023 COMPR EHENS ELIZABETH METAB OLIC PANEL GFR >60 Refer ence Range : [place] ge GFR Healt hy Adult : >60 mL/mi n/1.7 3 m2 Chron ic Kidne y Disea se: 15-60 mL/mi n/1.7 3 m2 Kidne y Failu re: <15/m L/min /1.73 m2 www.n iddk. nih.g ov The MDRD study equat ion has not been valid ated in child arthur <18 years of age; pregn ant women ; the elder ly >85 years of age; or in some racia l or ethni c subgr oups, such as Hispa nics. Outsi de the valid ated lane eters , estim ated GFR is less accur ate, requi ring clini geraldine judgm ent on a case- by-ca se basis . Clini geraldine inter preta tion for other races and ages must be made by the clini erlinda. The MDRD study equat ion has not been valid ated for the evalu ation of serum creat inine relat ed to nutri lakshmi l statu s or medic ation usage . For perso ns <18 years of age, a pedia tric GFR calcu lator is avail able on the [facility] websi te: https ://patric w.kid priscila.o rg/pr ofess ional s/kdo qi/gf r_cal culat or Not Available [facility] (Lab) [address] [place], [address], 05/23/2023 13:20:11 05/23/20 23 05/23/2023 COMPR EHENS ELIZABETH METAB OLIC PANEL alkaline phosphatase 79 U/L 38-126 Not Available [facility] (Lab) [address] [place], [address], 05/23/2023 13:20:11 05/23/20 23 05/23/2023 COMPR EHENS ELIZABETH METAB OLIC PANEL alanine aminotransfe rase 38 U/L 0-50 Not Available [facility] (Lab) [address] [place], [address], 05/23/2023 13:20:11 05/23/20 23 05/23/2023 COMPR EHENS ELIZABETH METAB OLIC PANEL aspartate aminotransfe rase 35 U/L 15-46 Not Available [facility] (Lab) [address] [place], [address], 05/23/2023 13:20:11 05/23/20 23 05/23/2023 COMPR EHENS ELIZABETH METAB OLIC PANEL bilirubin, total 0.80 mg/dL 0.20-1 .30 Not Available [facility] (Lab) [address] [place], [address], 05/23/2023 13:20:11 05/23/20 23 05/23/2023 COMPR EHENS ELIZABETH METAB OLIC PANEL calcium 8.9 mg/dL 8.4-10 .2 Not Available [facility] (Lab) [address] [place], [address], 05/23/2023 13:20:11 05/23/20 23 05/23/2023 COMPR EHENS ELIZABETH METAB OLIC PANEL total protein 7.9 g/dL 6.3-8. 2 Not Available [facility] (Lab) [address] [place], [address], 05/23/2023 13:20:11 05/23/20 23 05/23/2023 COMPR EHENS ELIZABETH METAB OLIC PANEL albumin 4.6 g/dL 3.0-4. 4 high Not Available [facility] (Lab) [address] [place], [address], 05/23/2023 13:20:11 05/23/20 23 05/23/2023 COMPR EHENS ELIZABETH METAB OLIC PANEL globulin 3.3 g/dL 2.6-4. 2 Not Available [facility] (Lab) [address] [place], [address], 05/23/2023 13:20:11 05/23/20 23 05/23/2023 COMPR EHENS ELIZABETH METAB OLIC PANEL A/G ratio 1.4 ratio 1.0-2. 0 Not Available [facility] (Lab) [address] [place], [address], 05/23/2023 13:20:11 05/23/20 23 05/23/2023 HEMOG LOBIN A1C HA1C 7.4 % 4.0-6. 0 high Diabe jarocho Scree douglas Crite grayson: <5.7% Consi stent with absen ce of diabe jarocho 5.7-6 .4% Consi stent with incre ased risk for diabe jarocho (pred iabet es) >OR=6 .5% Consi stent with diabe jarocho REFER ENCE: Diabe jarocho Care 2016, 39(Luna ppl.1 ):s13 -s22 Not Available [facility] (Lab) [address] [place], [address], 05/23/2023 14:09:45 10/04/20 23 10/04/2023 URINE MICRO SCOPI C EXAM/ IRIS white blood cells 41-60 /i??h pfi?? 0-8 abnormal Not Available [facility] (Lab) [address] [place], [address], 10/04/2023 15:14:27 10/04/20 23 10/04/2023 URINE MICRO SCOPI C EXAM/ IRIS white blood cell clumps FEW /i??h pfi?? none seen- abnormal Not Available [facility] (Lab) [address] [place], [address], 10/04/2023 15:14:27 10/04/20 23 10/04/2023 URINE MICRO SCOPI C EXAM/ IRIS red blood cells 41-60 /i??h pfi?? 0-4 abnormal Not Available [facility] (Lab) [address] [place], [address], 10/04/2023 15:14:27 10/04/20 23 10/04/2023 URINE MICRO SCOPI C EXAM/ IRIS bacteria NONE Not Available [facility] (Lab) [address] [place], [address], 10/04/2023 15:14:27 10/04/20 23 10/04/2023 URINE MICRO SCOPI C EXAM/ IRIS mucous OCCASI ONAL /i??l pfi?? abnormal Not Available [facility] (Lab) [address] [place], [address], 10/04/2023 15:14:27 10/04/20 23 10/04/2023 URINE MICRO SCOPI C EXAM/ IRIS squamous epithelial FEW /i??l pfi?? abnormal Not Available [facility] (Lab) [address] [place], [address], 10/04/2023 15:14:27 Result Notes None recorded. Problems Name Problem SNOMED Code Status Onset Date Resolution Date Notes Provider Name and Address Organization Details Recorded Time Complex dyslipide adrianna 02655119997 9107 Completed 201501/21/2021 Not Available [facility] 3 02:53:15 Hearing loss 79336936 Completed Not Available [facility] 3 02:53:15 Liver enzymes outside reference range 329739782 Active Not Available [facility] 3 05:21:20 Abdominal pain 07966630 Completed Not Available [facility] 3 02:53:15 Cerebrova scular accident 186811119 Active 2018 Not Available [facility] 3 05:21:20 Gastroeso phageal reflux disease 049660200 Active Not Available [facility] 3 05:21:20 Benign prostatic hyperplas ia 246655442 Active Not Available [facility] 3 05:21:20 Pain in thoracic spine 279827030 Completed Not Available [facility] 3 02:53:15 Malaise and fatigue 071121982 Active Not Available [facility] 3 05:21:20 Systolic murmur 70482971 Active Not Available [facility] 3 05:21:20 Dyslipide adrianna 915993649 Active 2020 Not Available [facility] 3 05:21:20 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 Not Available [facility] 3 05:21:20 Type 2 diabetes mellitus 44150366 Active Not Available [facility] 3 05:21:20 Cough 61513513 Completed Not Available [facility] 3 02:53:16 Cervical radiculop athy 87845741 Active 2021 Not Available [facility] 3 05:21:20 Hyperlipi demia 67318871 Active 2021 Not Available [facility] 3 05:21:20 Essential hypertens ion 29308678 Active Not Available [facility] 3 05:21:20 Neck pain 14217190 Completed Not Available [facility] 3 02:53:16 Gout 51376317 Active Not Available [facility] 3 05:21:20 Dysuria 38448223 Active 2022 Not Available [facility] 3 05:21:20 Balanitis 31261246 Active 2022 Not Available [facility] 3 05:21:20 Problem Notes None recorded. Procedures Surgical History Date Name Laterality Status Provider Name and Address Organization Details Recorded Time 3 Removal of kneecap completed Not Available [facility] 12/19/2022 02:47:42 Imaging Results None recorded. Procedure Notes None recorded. Medical Equipment None Reported. Allergies Allergen ID Allergen Name Allergen Category Reaction Reaction Severity Criticality Documentation Date Start Date Code Code System Note Provider Name and Address Organization Details Recorded Time 4645 metformin medicatio n diarrhea severe Not available 12/19/2022 6809 RxNorm Not Available [facility] 3 03:00:16 Medications Name Sig Start Date Stop Date Status Note LastModified by Organization Details LastModified Time cyclobenz aprine 10 mg tablet 08/02 completed Not Available Not Available Not Available amoxicill in 500 mg capsule 08/29 completed Not Available Not Available Not Available latanopro st 0.005 % eye drops active Not Available Not Available Not Available terazosin 5 mg capsule TAKE 1 CAPSULE DAILY 2023 active Not Available Not Available Not Avai lable fluconazo le 100 mg tablet TAKE 1 TABLET BY MOUTH EVERY DAY FOR 10 DAYS active Not Available Not Available No t Available silver sulfadiaz ine 1 % topical cream apply to burn daily untill healed 08/02 completed Not Available Not Available Not Available metformin 500 mg tablet active Not Available Not Available Not Available hydrocodo ne 7.5 mg-ibupro fen 200 mg tablet 05/08 completed Not Available Not Available Not Available atorvasta tin 80 mg tablet TAKE 1 TABLET DAILY active Not Available Not Available No t Available triazolam 0.25 mg tablet 01/02 completed Not Available Not Available Not Available atorvasta tin 10 mg tablet Take 1 tablet every day by oral route. 10/23 completed Not Available Not Available Not Available aspirin 325 mg tablet Take 1 tablet every day by oral route. 2017 active Not Available Not Available Not Avai lable ofloxacin 0.3 % eye drops PLEASE SEE ATTACHED FOR DETAILED DIRECTIO NS 11/29 completed Not Available Not Available Not Available tizanidin e 4 mg tablet TAKE 1 TABLET BY MOUTH EVERYDAY AT BEDTIME 08/02 completed Not Available Not Available Not Available hydrocodo ne 5 mg-acetam inophen 325 mg tablet Take 1 tablet as needed by oral route at bedtime. active Not Available Not Available No t Available penicilli n V potassium 500 mg tablet 01/02 completed Not Available Not Available Not Available clopidogr el 75 mg tablet Take 1 tablet every day by oral route for 90 days. 03/03 completed Not Available Not Available Not Available fosinopri l 20 mg tablet TAKE 1 TABLET DAILY active Not Available Not Available No t Available sulfameth oxazole 800 mg-trimet hoprim 160 mg tablet 10/28 completed Not Available Not Available Not Available hydrocodo ne 10 mg-acetam inophen 325 mg tablet 01/18 completed Not Available Not Available Not Available omeprazol e 40 mg capsule,d elayed release TAKE 1 CAPSULE DAILY active Not Available Not Available No t Available tramadol 50 mg tablet TAKE 1 TABLET BY MOUTH AT BEDTIME 12/07 completed Not Available Not Available Not Available simvastat in 40 mg tablet TAKE 1 TABLET BY MOUTH EVERY DAY 04/30 completed Not Available Not Available Not Available glimepiri de 2 mg tablet 10/23 completed Not Available Not Available Not Available ketorolac 0.5 % eye drops INSTILL 1 DROP INTO AFFECTED EYE 3X DAILY STARTING 2 DAYS PRIOR TO SURGERY CONTINUE FOR 2 WKS AFTER 11/29 completed Not Available Not Available Not Available methylpre dnisolone acetate 80 mg/mL suspensio n for injection Take 80 mg by injectio n route. 11/09 completed Not Available Not Available Not Available nortripty line 25 mg capsule 09/08 completed Not Available Not Available Not Available oxycodone -acetamin ophen 5 mg-325 mg tablet 08/11 completed Not Available Not Available Not Available prednisol one acetate 1 % eye drops,husam pension INSTILL 1 DROP INTO SURGICAL EYE 3 TIMES A DAY STARTING AFTER SURGERY FOR 3 WEEKS 11/29 completed Not Available Not Available Not Available nifedipin e ER 60 mg tablet,ex tended release 24 hr TAKE 1 TABLET EVERY DAY 10/25 completed Not Available Not Available Not Available oxycodone -acetamin ophen 10 mg-325 mg tablet TAKE 1 TABLET BY MOUTH FOUR TIMES DAILY NEEDED 11/09 completed Not Available Not Available Not Available tamsulosi n 0.4 mg capsule TAKE 1 CAPSULE BY MOUTH DAILY active Not Available Not Available No t Available amlodipin e 10 mg tablet TAKE 1 TABLET DAILY (IN PLACE OF NIFEDIPI NE) active Not Available Not Available No t Available triamcino lone acetonide 40 mg/mL suspensio n for injection Take 80 mg by injectio n route. 08/02 completed Not Available Not Available Not Available hydrocodo ne 7.5 mg-acetam inophen 325 mg tablet Take 1 tablet twice a day by oral route as needed. 10/23 completed Not Available Not Available Not Available oseltamiv ir 75 mg capsule 12/24 completed Not Available Not Available Not Available metformin 1,000 mg tablet TAKE 1 TABLET TWICE DAILY 08/04 completed ER D/c Not Available Not Available Not Available Cipro 500 mg tablet Take 1 tablet twice a day by oral route for 7 days. 2022 active Not Available Not Available Not Avai lable dexametha sone 4 mg tablet 03/03 completed prescrib ed by [facility] [place] we do not prescrib e Not Available Not Available Not Available hydrocodo ne 7.5 mg-acetam inophen 750 mg tablet 10/28 completed Not Available Not Available Not Available glimepiri de 4 mg tablet TAKE 1 TABLET TWICE A DAY active Not Available Not Available No t Available omeprazol e 20 mg capsule,d elayed release TAKE 1 CAPSULE EVERY DAY 11/26 completed Not Available Not Available Not Available allopurin ol 300 mg tablet TAKE 1 TABLET DAILY active Not Available Not Available No t Available nifedipin e ER 60 mg tablet,ex tended release Take 1 tablet every day by oral route. 08/04 completed Not Available Not Available Not Available clobetaso l 0.05 % scalp solution PLEASE SEE ATTACHED FOR DETAILED DIRECTIO NS active Not Available Not Available No t Available finasteri de 5 mg tablet TAKE 1 TABLET DAILY active Not Available Not Available No t Available neomycin 3.5 mg/g-poly myxin B 10,000 unit/g-de xameth 0.1 % eye oint 08/04 completed Not Available Not Available Not Available ciclopiro x 0.77 % topical cream APPLY SMALL AMOUNT TO FUNGAL TOENAILS 1-2X DAILY 11/29 completed Not Available Not Available Not Available ketamine (bulk) 100 % powder 09/08 completed Not Available Not Available Not Available tadalafil 20 mg tablet TAKE 1 TABLET EVERY 3 DAYS NEEDED 08/02 completed Not Available Not Available Not Available chlorhexi dine gluconate 0.12 % mouthwash 01/01 completed Not Available Not Available Not Available lidocaine (PF) 10 mg/mL (1 %) injection solution Take 5 mL by injectio n route. 11/09 completed Not Available Not Available Not Available BD Ultra-Fin e Short Pen Needle 31 gauge x 5/16 USE ONCE DAILY active Not Available Not Available No t Available GaviLyte- G 236 gram-22.7 4 gram-6.74 gram-5.86 gram oral solution 09/29 completed Not Available Not Available Not Available Prevnar 13 (PF) 0.5 mL intramusc ular syringe ADM 0.5ML IM UTD 08/04 completed Not Available Not Available Not Available red yeast rice 08/19 completed Not Available Not Available Not Available Farxiga 10 mg tablet Take 1 tablet every day by oral route. 10/28 completed genitour inary yeast infectio n Not Available Not Available Not Available Farxiga 5 mg tablet Take 1 tablet every day by oral route. 04/10 completed Not Available Not Available Not Available True Metrix Glucose Test Strip USE 1 STRIP TO CHECK GLUCOSE TWICE DAILY active Not Available Not Available No t Available Fluarix Quad (PF) 60 mcg (15 mcg x 4)/0.5 mL IM syringe active Not Available Not Available Not Available Tresiba FlexTouch U-200 insulin 200 unit/mL (3 mL) subcutane ous pen INJECT 30 UNITS SUBCUTAN EOUSLY DAILY active 36 units Not Available Not Available No t Available Tresiba FlexTouch U-100 insulin 100 unit/mL (3 mL) subcutane ous pen INJECT 20 UNITS SUBCUTAN EOUSLY ONCE DAILY 12/07 completed taking 30units daily Not Available Not Available Not Available Fluzone High-Dose 5445-6369 (PF) 180 mcg/0.5 mL intramusc ular syringe ADM 0.5ML IM UTD 01/01 completed Not Available Not Available Not Available Fluzone High-Dose [id number] (PF) 180 mcg/0.5 mL intramusc ular syringe ADM 0.5ML IM UTD 08/04 completed Not Available Not Available Not Available Fluzone High-Dose 2018- (PF) 180 mcg/0.5 mL intramusc ular syringe ADM 0.5ML IM UTD 08/11 completed Not Available Not Available Not Available Vitals Date Recorded Body height Body mass index (BMI) Body weight Body temperature Heart rate Systolic blood pressure Diastolic blood pressure Provider Name and Address Organization Details Last Updated DateTime 3 168.91 cm 34.3 kg/m2 75437.9 5 g 97.7 [degF] 91 /min 118 mm[Hg] 80 mm[Hg] PATRICIA Sky [employer] 3 10:42:06 Date Recorded Body height Body mass index (BMI) Body weight Body temperature Heart rate Oxygen saturation Oxygen saturation in Arterial blood by Pulse oximetry Systolic blood pressure Diastolic blood pressure Provider Name and Address Organization Details Last Updated DateTime 3 168.91 cm 35 kg/m2 06441.3 2 g 97.6 [degF] 80 /min 92 % 92 % 114 mm[Hg] 76 mm[Hg] Sabrina Marks MA [employer] 3 11:29:29 Date Recorded Body mass index (BMI) Body height Heart rate Body temperature Body weight Systolic blood pressure Diastolic blood pressure Provider Name and Address Organization Details Last Updated DateTime 2 35.5 kg/m2 168.91 cm 72 /min 95.3 [degF] 180273. 1 g 124 mm[Hg] 70 mm[Hg] Not Available [facility] 3 02:49:50 Date Recorded Body mass index (BMI) Body height Heart rate Body temperature Body weight Systolic blood pressure Diastolic blood pressure Provider Name and Address Organization Details Last Updated DateTime 2 34.5 kg/m2 168.91 cm 69 /min 97.3 [degF] 30807.5 4 g 138 mm[Hg] 76 mm[Hg] Not Available [facility] 3 02:49:50 Date Recorded Body mass index (BMI) Body height Heart rate Body temperature Body weight Systolic blood pressure Diastolic blood pressure Provider Name and Address Organization Details Last Updated DateTime 3 35.6 kg/m2 168.91 cm 74 /min 97.7 [degF] 933043. 69 g 122 mm[Hg] 82 mm[Hg] Not Available [facility] 3 02:49:50 Social History Question Answer Notes LastModified by Organization Details LastModified Time Tobacco Smoking Status Never Smoker Not Available [facility] 12/19/2022 02:35:26 Do You Have An Advance Directive? No Patient Declined Information. [id number] Information not available 12/19/2022 What Is Your Level Of Alcohol Consumption? Moderate 4-5 Beers Per Week [id number] Information not available 12/19/2022 Are You Blind Or Do You Have Difficulty Seeing? Yes Peripheral Vison Loss [id number] Information not available 12/19/2022 What Is Your Level Of Caffeine Consumption? Moderate [id number] Information not available 12/19/2022 How Much Tobacco Do You Chew? None [id number] Information not available 12/19/2022 In The 14 Days Before Symptom Onset, Have You Had Close Contact With A Laboratory-conf irmed COVID-19 While That Case Was Ill? No [id number] Information not available 12/19/2022 In The 14 Days Before Symptom Onset, Have You Had Close Contact With A Person Who Is Under Investigation For COVID-19 While That Person Was Ill? No [id number] Information not available 12/19/2022 Are You Deaf Or Do You Have Serious Difficulty Hearing? Yes Bilateral Hearing Aids [id number] Information not available 12/19/2022 What Type Of Diet Are You Following? REGULAR [id number] Information not available 12/19/2022 Which Illicit Or Recreational Drugs Have You Used? None [id number] Information not available 12/19/2022 Do You Or Have You Ever Used E-cigarettes Or Vape? Never Used Electronic Cigarettes [id number] Information not available 12/19/2022 What Is The Highest Grade Or Level Of School You Have Completed Or The Highest Degree You Have Received? [id number] MIGRATION.0301 [id number] Information not available 12/19/2022 What Is Your Occupation? Retired MIGRATION.0301 [id number] Information not available 12/19/2022 Have There Been Any Changes To Your Family Or Social Situation? No MIGRATION.0301 940883 Information not available 12/19/2022 What Is The Fluoride Status Of Your Home? Unknown MIGRATION.0301 515191 Information not available 12/19/2022 Are There Any Guns Present In Your Home? Yes MIGRATION.0301 010102 Information not available 12/19/2022 Do You Use Insect Repellent Routinely? No MIGRATION.0301 880526 Information not available 12/19/2022 Where Do You Live? [facility] MIGRATION.0301 [id number] Information not available 12/19/2022 Do You Have A Medical Power Of Customer Relations Consultant? No MIGRATION.0301 170242 Information not available 12/19/2022 What Was The Date Of Your Most Recent Tobacco Screening? 10/04/2023 [email or web address] Information not available 10/04/2023 Have You Ever Been Counseled For Unhealthy Alcohol Use? No MIGRATION.0301 363070 Information not available 12/19/2022 Do You Have Any Pets? Yes Cat MIGRATION.0301 [id number] Information not available 12/19/2022 What Is Your Relationship Status? Domestic Partner MIGRATION.0301 442353 Information not available 12/19/2022 Do You Use Your Seat Belt Or Car Seat Routinely? Yes MIGRATION.0301 [id number] Information not available 12/19/2022 Do You Have Smoke And Carbon Monoxide Detectors In Your Home? Yes MIGRATION.0301 675926 Information not available 12/19/2022 Are You Passively Exposed To Smoke? No MIGRATION.0301 538430 Information not available 12/19/2022 Do You Or Have You Ever Used Smokeless Tobacco? Never Used Smokeless Tobacco MIGRATION.0301 575737 Information not available 12/19/2022 Are There Any Smokers In Your House? No MIGRATION.0301 392005 Information not available 12/19/2022 How Much Tobacco Do You Smoke? No MIGRATION.0301 526392 Information not available 12/19/2022 What Types Of Sporting Activities Do You Participate In? Golfs MIGRATION.0301 291213 Information not available 12/19/2022 Do You Feel Stressed (tense, Restless, Nervous, Or Anxious, Or Unable To Sleep At Night)? [id number] MIGRATION.0301 149850 Information not available 12/19/2022 Do You Use Any Illicit Or Recreational Drugs? No MIGRATION.0301 147224 Information not available 12/19/2022 Do You Use Sunscreen Routinely? No MIGRATION.0301 162102 Information not available 12/19/2022 Has Tobacco Cessation Counseling Been Provided? No MIGRATION.0301 548980 Information not available 12/19/2022 Have You Recently Traveled Abroad? No MIGRATION.0301 390219 Information not available 12/19/2022 Do You Have Any Dietary Restrictions? No MIGRATION.0301 249330 Information not available 12/19/2022 Do You Or Have You Ever Used Any Other Forms Of Tobacco Or Nicotine? No MIGRATION.0301 299996 Information not available 12/19/2022 Sex: Male Functional Status Question Answer Note LastModified by Organization Details LastModified Time Do you have difficulty walking or climbing stairs? Yes right knee pain MIGRATION.0301 705315 Information not available 12/19/2022 Do you have transportation difficulties? No MIGRATION.0301 469898 Information not available 12/19/2022 Are you able to walk? YESASSIST uses cane occasionally MIGRATION.0301 395214 Information not available 12/19/2022 Do you have difficulty doing errands alone? No MIGRATION.0301 552408 Information not available 12/19/2022 Are you able to care for yourself? Yes MIGRATION.0301 155212 Information not available 12/19/2022 Do you have difficulty dressing or bathing? No MIGRATION.0301 405738 Information not available 12/19/2022 What is your exercise level? Occasional MIGRATION.0301 519213 Information not available 12/19/2022 Mental Status Question Answer Note LastModified by Organizat ion Details LastModified Time Do you have difficulty concentrating, remembering or making decisions? No MIGRATION.[id number] 6 Information not available 12/19/2022 Family History Relationship Description Onset Age of this Age Resolved Age Notes LastModified by Organization Details LastModified Time Mother Malignant tumor of ovary MIGRATION.525 [id number] Not available 12/19/2022 02:47:44 Father Diabetes mellitus MIGRATION.981 [id number] Not available 12/19/2022 02:47:44 Father Cerebrovascu lar accident MIGRATION.122 [id number] Not available 12/19/2022 02:47:44 Medical History Condition Response NERVE DISEASE N BLINDNESS N RHEUMATIC FEVER N KIDNEY STONES Y BLADDER PROBLEMS N MRSA N OTHER # 1 N POLIO N LUNG DISEASE/DISORDER N RADIATION / CHEMOTHERAPY N COPD N Other # 2 N BLOOD DISEASES N SURGERY N EAR OR HEARING PROBLEMS N MUMPS N BOWEL PROBLEMS N DEPRESSION (INCLUDING POST ) Y STROKE/TIA Y ULCERS N BENIGN PROSTATIC HYPERPLASIA N MEASLES N MYOCARDIAL INFARCTION N OBESITY N GERD/NAUSEA Y ANEURYSM N URINARY/BLADDER/KIDNEY PROBLEMS N CORONARY ARTERY DISEASE (CAD) N ADDICTION CONCERNS N ENDOMETRIOSIS N Impotence N USE OF BLOOD THINNERS N SKIN PROBLEMS N GASTROINTESTINAL DISORDER N PERIPHERAL VASCULAR DISEASE N MUSCLE,JOINT OR BONE PROBLEMS N GASTROINTESTINAL BLEEDING N BLOOD CLOTS N ASTHMA N CATARACTS N ERECTILE DYSFUNCTION N VARICOSITIES N GI PROBLEMS N Low Testosterone N INFERTILITY N AIDS/HIV N CHEMOTHERAPY / RADIATION N LIVER DISEASE N MALE HYPOGONADISM N HYPERTENSION Y Deficiency N ANXIETY DISORDER N BLOOD TRANSFUSION N ANEMIA/BLOOD DISORDER N CHRONIC EAR INFECTIONS N BRONCHITIS N TUBERCULOSIS N GLAUCOMA N FOOT PROBLEM N DIVERTICULITIS N SLEEP APNEA N CHICKENPOX N INFECTIOUS DISEASE N HEART ARRHYTHMIA N PROSTATE Y INSOMNIA N HIGH CHOLESTEROL / HYPERLIPIDEMIA Y HYPERTHYROIDISM N EYE PROBLEMS N NEUROLOGICAL PROBLEMS N EDEMA N CHRONIC PAIN SYNDROME N HYPOTHYROIDISM N CAROTID BLOCKAGE N CONSTIPATION N BACK / NECK PROBLEMS Y HAVE YOU BEEN HOSPITALIZED OR SEEN IN [facility] IN THE PAST YEAR ? N ATHEROSCLEROSIS N BREAST PROBLEMS N DIALYSIS N ECZEMA N OSTEOPOROSIS N ARTHRITIS N APPENDICITIS N DIABETES, TYPE Y BAD TEETH N ENT N HEARTBURN / REFLUX Y AUTISM SPECTRUM DISORDER (ASD) N HEPATITIS / LIVER DISEASE N GOUT Y SLEEP DISORDER N ALZHEIMER'S DISEASE N Brain Problems N HERPES N DEMENTIA N HEADACHES/MIGRAINES N SEIZURES/EPILEPSY N VASCULAR DISEASE N PACEMAKER N Blood Disorder N DIZZINESS N HEART DISEASE/HEART PROBLEMS N KIDNEY DISEASE N MULTIPLE SCLEROSIS N CARDIAC ARRHYTHMIA N CANCER: SPECIFY N ATRIAL FIBRILLATION N Gall Stones N PULMONARY EMBOLISM N AUTOIMMUNE DISEASE N Immunizations Vaccine Type Date Status Note Provider Nam e and Address Organization Details Recorded Time Influenza, high-dose, trivalent, PF 9 completed Not Available [facility] 10/08/2023 05:21:21 Influenza, high-dose, trivalent, PF 7 completed Not Available [facility] 10/08/2023 05:21:21 Influenza, high-dose, trivalent, PF 2 completed Not Available [facility] 10/08/2023 05:21:21 Influenza, split virus, trivalent, preservative 1 completed Not Available [facility] 10/08/2023 05:21:21 COVID-19, mRNA, LNP-S, PF, 30 mcg/0.3 mL dose 1 completed Not Available [facility] 10/08/2023 05:21:21 COVID-19, mRNA, LNP-S, PF, 30 mcg/0.3 mL dose 1 completed Not Available [facility] 10/08/2023 05:21:21 influenza, unspecified formulation 8 completed Not Available [facility] 10/08/2023 05:21:21 Pneumococcal conjugate PCV 13 8 completed Not Available [facility] 10/08/2023 05:21:21 Past Encounters Encounter ID Performer Location Encounter Start Date Encounter Closed Date Diagnosis/Indication Diagnosis SNOMED-CT Code Diagnosis ICD10 Code Diagnosis Note [id number] [facility] [place] [address] 01/17/2021 00:00:00 01/21/2021 11:32:59 [id number] [facility] [place] [address] 05/18/2021 00:00:00 05/18/2021 10:42:42 [id number] _MIRIAM_ IGRATION_ DEFAULT_1 _1 , 06/07/2021 00:00:00 06/16/2021 10:22:09 [id number] [facility] [address] , [place] [address] 08/31/2021 00:00:00 09/02/2021 20:25:56 [id number] _ATHENA_M IGRATION_ DEFAULT_1 _1 , 09/20/2021 00:00:00 09/27/2021 11:42:32 [id number] _ATHENA_M IGRATION_ DEFAULT_1 _1 , 10/04/2021 00:00:00 10/09/2021 09:31:37 [id number] [facility] [address], [address] [address] 11/09/2021 00:00:00 11/19/2021 20:51:24 [id number] [facility] [place] [address] [place] [address] y , [place] [address] 11/14/2021 00:00:00 11/14/2021 21:28:07 [id number] [facility] [address] [place] [address] 12/07/2021 00:00:00 12/16/2021 14:56:42 [id number] [facility] [place] [address] [place] [address] y , [place] [address] 04/05/2022 00:00:00 04/05/2022 22:14:07 [id number] [facility] [place] [address] [place] [address] y , [place] [address] 08/02/2022 00:00:00 08/03/2022 08:36:45 [id number] [facility] [place] [address] [place] [address] y , [place] [address] 11/29/2022 00:00:00 11/29/2022 14:01:07 [id number] Caroline Hunter MD [facility] Internal Med [address] [address] , [place] [address] 05/23/2023 10:27:39 05/23/2023 11:36:13 Essential hypertension 39863756 I10 Type 2 demetri betes mellitus 40571999 E11.9 Dyslipidemia 657713379 E 78.5 Gastroesop hageal reflux disease 905829098 K21.9 [id number] Caroline Hunter MD [facility] Internal Med [place] [address], [address] [place] [address] 10/04/2023 10:55:23 10/04/2023 11:52:08 Dysuria 02293186 R30.0 Balanitis 14255104 N48.1 Health Concerns Section Related Observation LastModified by Organization Detai ls LastModified Time None Recorded Concern Status LastModified by Organization Details LastModified Time None Recorded Advance Directives Directive N: Patient declined informat ion. Payers Encounter Date Sequence Insurance Name Policy Number Policy Roper Covered Member ID Roper Member ID Guarantor Name 05/23/2023 1 [place] Neo Abraham Jr [id number] Neo Abraham 05/23/2023 2 [employer] HE[employer] OPTIONS (MEDICARE SUPPLEMENT) Neo Abraham [id number] Neo Abraham 10/04/2023 1 [place] Neo Abraham Jr [id number] Neo Abraham 10/04/2023 2 [employer] HE[employer] OPTIONS (MEDICARE SUPPLEMENT) Neo Abraham [id number] Neo Abraham Notes Date Note Type Note Provider Name and Address Organization Details Recorded Time 05/23/2023 text/html Hypertension no headache or dizziness dyslipidemia could do better with diet diabetes no blurred vision no polydipsia any better with diet current no nausea no vomiting. Gout no red hot swollen joints Caroline Hunter MD [address], [facility] [address], [place], [address], [facility] [employer] 05/24/2023 08:06:48 10/04/2023 text/html Trouble urinatin g he has had painful urination as well as some discomfort around his uncircumcised penis Caroline Hunter MD [address] [facility], [facility] [address], [place], [address], [place] [facility] 10/05/2023 16:04:41
--- OUTSIDE RECORDS SUMMARY | 2024-12-16 16:48 | XMS_ITS | CONTINUITY OF CARE DOCUMENT ---
Author Name luis smith Address Unknown Organization [facility] Address [address] [place] [address] Phone [phone] Care Team Providers Care [employer] Equipment Mechanic Name Role Phone Gayatri ISABEL, Ric Unavailable AXEL LR III, MD Unavailable AXEL LR III, MD Unavailable INSURANCE PROVIDERS Payer name Policy type / Coverage type [place] red alliance party ID [facility] [id number] [place] [employer] [id number]
--- OUTSIDE RECORDS SUMMARY | 2024-12-16 16:48 | XMS_ITS | Data Portability ---
Author Organization [place] [facility] Address [address] [place] [address] Care Team Providers Care O And M Supervisor Name Role Phone CAROLINE HUNTER Primary Care Provider Assessment Encounter Date Assessment Date Assessment LastModified by Organization Details LastModified Time 12/17/2023 12/17/2023 Sounds like benign essential tremor we will try primidone 50 twice daily diabetes 7.4 [id number] test A1c today hypertension continue current therapy other diagnosis and assessment and plan have been discussed in detail all questions have been answered will follow-up with me in 4 months [place] [id number] Not available 12/28/2023 22:12:53 04/16/2024 04/16/2024 targets for LDL blood pressure and A1c have been discussed we will check stool studies because of the diarrhea he can tell start taking Cipro biotics as well further recs on diarrhea once I get the stool studies back abdomen is soft and nontender he has nothing febrile so we will monitor for now. Regular follow-up in 4 months [email or web address] Not available 04/18/2024 09:22:43 08/13/2024 08/13/2024 advised to stay up-to-date on eye appointments foot exams respiratory immunizations and screenings. We will obtain a CBC CMP lipid A1c targets for blood pressure A1c and LDL in the face of diabetes have been discussed all questions have been answered follow up 4 months [email or web address] Not available 08/16/2024 22:50:07 Plan of Treatment Reminders Order Date Submit Date Provider Last Modified By Organization Details Last Modified Time Details Appointments ANY 15 2024 01:00P Trudy Hunter MD Not available Not available Not available Lab HbA1c (hemoglob in A1c), blood 2023 024 MIRIAM [facility], [address], [place], [address], 09/09/2024 12:24:01 lipid panel, serum 2023 024 [facility], [address], [place], [address], 09/09/2024 12:24:00 CMP, serum or plasma 2023 024 [facility], [address], [place], [address], 09/09/2024 12:24:00 CBC w/ auto diff 2023 024 [facility], [address], [place], [address], 09/09/2024 12:24:01 O&P (ova & parasites ), stool 2023 024 [facility], [address], [place], [address], 04/22/2024 14:36:47 C diff toxin A+B, qual IA, stool 2023 024 [facility], [address], [place], [address], 04/18/2024 15:10:07 HbA1c (hemoglob in A1c), blood 2023 024 [facility], [address], [place], [address], 04/17/2024 08:27:13 CBC w/ auto diff 2023 024 [facility], [address], [place], [address], 04/17/2024 08:27:14 CMP, serum or plasma 2023 024 [facility], [address], [place], [address], 04/17/2024 08:27:13 lipid panel, serum 2023 024 [facility], [address], [place], [address], 04/17/2024 08:27:12 HbA1c (hemoglob in A1c), blood 2023 [email or web address] In-Office Order, Internal Use Only DO Not Attach Compendium DO Not Attach Compendium, Do Not Delete/merge, [id number] 12/28/2023 22:13:31 CBC w/ auto diff 2023 [facility], [address], [place], [address], 12/18/2023 08:29:53 lipid panel, serum 2023 024 [facility], [address], [place], [address], 12/18/2023 08:29:52 CMP, serum or plasma 2023 024 [facility], [address], [place], [address], 12/18/2023 08:29:53 Referral None recorded. Procedures None recorded. Surgeries None recorded. Imaging None recorded. Medication Orders primidone 50 mg tablet 2023 024 [facility] #[id number], [address] [place], [address], 12/17/2023 11:51:11 Patient TargetsNo targets recorded. Patient InstructionsNo instructions recorded. Reason for Referral None Reported. Results Created Date Observation Date Name Description Value Unit Range Abnormal Flag Note LastModifiedBy Organization Detail LastModifiedTime 12/17/19 24 12/18/2023 LIPID PANEL cholesterol, total 117 mg/dL 100-19 9 Not Available [facility] ([facility]) [address] [place], [address], 12/18/2023 08:29:52 12/17/19 24 12/18/2023 LIPID PANEL triglyceride s 111 mg/dL 0-149 Not Available [facility] ([facility]) [address] [place], [address], 12/18/2023 08:29:52 12/17/19 24 12/18/2023 LIPID PANEL HDL cholesterol 35 mg/dL >39 below low normal Not Available [facility] ([facility]) [address] [place], [address], 12/18/2023 08:29:52 12/17/19 24 12/18/2023 LIPID PANEL VLDL cholesterol geraldine 21 mg/dL 5-40 Not Available [facility] ([facility]) [address] [place], [address], 12/18/2023 08:29:52 12/17/19 24 12/18/2023 LIPID PANEL LDL chol calc ([facility]) 61 mg/dL 0-99 Not Available [facility] ([facility]) [address] [place], [address], 12/18/2023 08:29:52 12/17/19 24 12/18/2023 COMP. METAB OLIC PANEL (14) glucose 146 mg/dL 70-99 above high normal Not Available [facility] ([facility]) [address] [place], [address], 12/18/2023 08:29:53 12/17/19 24 12/18/2023 COMP. METAB OLIC PANEL (14) BUN 21 mg/dL 8-27 Not Available [facility] ([facility]) [address] [place], [address], 12/18/2023 08:29:53 12/17/19 24 12/18/2023 COMP. METAB OLIC PANEL (14) creatinine 0.97 mg/dL 0.76-1 .27 Not Available [facility] ([facility]) [address] [place], [address], 12/18/2023 08:29:53 12/17/19 24 12/18/2023 COMP. METAB OLIC PANEL (14) eGFR 82 mL/mi n/1.7 3 >59 Not Available [facility] ([facility]) [address] [place], [address], 12/18/2023 08:29:53 12/17/19 24 12/18/2023 COMP. METAB OLIC PANEL (14) BUN/creatini ne ratio 22 10-24 Not Available [facility] ([facility]) [address] [facility], [place], [address], 12/18/2023 08:29:53 12/17/19 24 12/18/2023 COMP. METAB OLIC PANEL (14) sodium 143 mmol/ L 134-14 4 Not Available [facility] ([facility]) [address] [place], [address], 12/18/2023 08:29:53 12/17/19 24 12/18/2023 COMP. METAB OLIC PANEL (14) potassium 4.8 mmol/ L 3.5-5. 2 Not Available [facility] ([facility]) [address] [place], [address], 12/18/2023 08:29:53 12/17/19 24 12/18/2023 COMP. METAB OLIC PANEL (14) chloride 104 mmol/ L 96-106 Not Available [facility] ([facility]) [address] [place], [address], 12/18/2023 08:29:53 12/17/19 24 12/18/2023 COMP. METAB OLIC PANEL (14) carbon dioxide, total 24 mmol/ L 20-29 Not Available [facility] ([facility]) [address] [place], [address], 12/18/2023 08:29:53 12/17/19 24 12/18/2023 COMP. METAB OLIC PANEL (14) calcium 9.6 mg/dL 8.6-10 .2 Not Available [facility] ([facility]) [address] [place], [address], 12/18/2023 08:29:53 12/17/19 24 12/18/2023 COMP. METAB OLIC PANEL (14) protein, total 7.8 g/dL 6.0-8. 5 Not Available [facility] ([facility]) [address] [place], [address], 12/18/2023 08:29:53 12/17/19 24 12/18/2023 COMP. METAB OLIC PANEL (14) albumin 4.7 g/dL 3.8-4. 8 Not Available [facility] ([facility]) [address] [place], [address], 12/18/2023 08:29:53 12/17/19 24 12/18/2023 COMP. METAB OLIC PANEL (14) globulin, total 3.1 g/dL 1.5-4. 5 Not Available [facility] ([facility]) [address] [place], [address], 12/18/2023 08:29:53 12/17/19 24 12/18/2023 COMP. METAB OLIC PANEL (14) A/G ratio 1.5 1.2-2. 2 Not Available [facility] ([facility]) [address] [place], [address], 12/18/2023 08:29:53 12/17/19 24 12/18/2023 COMP. METAB OLIC PANEL (14) bilirubin, total 0.8 mg/dL 0.0-1. 2 Not Available [facility] ([facility]) [address] [place], [address], 12/18/2023 08:29:53 12/17/19 24 12/18/2023 COMP. METAB OLIC PANEL (14) alkaline phosphatase 87 IU/L 44-121 Not Available [facility]) [address] [place] [place], [address], 12/18/2023 08:29:53 12/17/19 24 12/18/2023 COMP. METAB OLIC PANEL (14) AST (SGOT) 27 IU/L 0-40 Not Available [facility] ([facility]) [address] [place], [address], 12/18/2023 08:29:53 12/17/19 24 12/18/2023 COMP. METAB OLIC PANEL (14) ALT (SGPT) 34 IU/L 0-44 Not Available [facility] ([facility]) [address] [facility], [place], [address], 12/18/2023 08:29:53 12/17/19 24 12/18/2023 CBC WITH DIFFE RENTI AL/PL ATELE T WBC 9.1 x10e3 /uL 3.4-10 .8 Not Available [facility] ([facility]) [address] [place], [address], 12/18/2023 08:29:53 12/17/19 24 12/18/2023 CBC WITH DIFFE RENTI AL/PL ATELE T RBC 5.36 x10e6 /uL 4.14-5 .80 Not Available [facility] ([facility]) [address] [place], [address], 12/18/2023 08:29:53 12/17/19 24 12/18/2023 CBC WITH DIFFE RENTI AL/PL ATELE T hemoglobin 16.6 g/dL 13.0-1 7.7 Not Available [facility] ([facility]) [address] [place], [address], 12/18/2023 08:29:53 12/17/19 24 12/18/2023 CBC WITH DIFFE RENTI AL/PL ATELE T hematocrit 50.4 % 37.5-5 1.0 Not Available [facility] ([facility]) [address] [facility], [place], [address], 12/18/2023 08:29:53 12/17/19 24 12/18/2023 CBC WITH DIFFE RENTI AL/PL ATELE T MCV 94 fL 79-97 Not Available [facility] ([facility]) [address] [facility], [place], [address], 12/18/2023 08:29:53 12/17/19 24 12/18/2023 CBC WITH DIFFE RENTI AL/PL ATELE T MCH 31.0 pg 26.6-3 3.0 Not Available [facility] ([facility]) [address] [facility], [place], [address], 12/18/2023 08:29:53 12/17/19 24 12/18/2023 CBC WITH DIFFE RENTI AL/PL ATELE T MCHC 32.9 g/dL 31.5-3 5.7 Not Available [facility] ([facility]) [address] [place], [address], 12/18/2023 08:29:53 12/17/19 24 12/18/2023 CBC WITH DIFFE RENTI AL/PL ATELE T RDW 12.9 % 11.6-1 5.4 Not Available [facility] ([facility]) [address] [facility], [place], [address], 12/18/2023 08:29:53 12/17/19 24 12/18/2023 CBC WITH DIFFE RENTI AL/PL ATELE T platelets 229 x10e3 /uL 150-45 0 Not Available [facility] ([facility]) [address] [facility], [place], [address], 12/18/2023 08:29:53 12/17/19 24 12/18/2023 CBC WITH DIFFE RENTI AL/PL ATELE T neutrophils 68 % notest ab. Not Available [facility] ([facility]) [address] [facility], [place], [address], 12/18/2023 08:29:53 12/17/19 24 12/18/2023 CBC WITH DIFFE RENTI AL/PL ATELE T lymphs 22 % notest ab. Not Available [facility] ([facility]) [address] [facility], [place], [address], 12/18/2023 08:29:53 12/17/19 24 12/18/2023 CBC WITH DIFFE RENTI AL/PL ATELE T monocytes 8 % notest ab. Not Available [facility] ([facility]) [address] [facility], [place], [address], 12/18/2023 08:29:53 12/17/19 24 12/18/2023 CBC WITH DIFFE RENTI AL/PL ATELE T eos 2 % notest ab. Not Available [facility] ([facility]) [address] [facility], [place], [address], 12/18/2023 08:29:53 12/17/19 24 12/18/2023 CBC WITH DIFFE RENTI AL/PL ATELE T basos 0 % notest ab. Not Available [facility] ([facility]) [address] [facility], [place], [address], 12/18/2023 08:29:53 12/17/19 24 12/18/2023 CBC WITH DIFFE RENTI AL/PL ATELE T neutrophils (absolute) 6.0 x10e3 /uL 1.4-7. 0 Not Available [facility] ([facility]) [address] [facility], [place], [address], 12/18/2023 08:29:53 12/17/19 24 12/18/2023 CBC WITH DIFFE RENTI AL/PL ATELE T lymphs (absolute) 2.0 x10e3 /uL 0.7-3. 1 Not Available [facility] ([facility]) [address] [facility], [place], [address], 12/18/2023 08:29:53 12/17/19 24 12/18/2023 CBC WITH DIFFE RENTI AL/PL ATELE T monocytes(ab solute) 0.8 x10e3 /uL 0.1-0. 9 Not Available [facility] ([facility]) [address] [facility], [place], [address], 12/18/2023 08:29:53 12/17/19 24 12/18/2023 CBC WITH DIFFE RENTI AL/PL ATELE T eos (absolute) 0.2 x10e3 /uL 0.0-0. 4 Not Available [facility] ([facility]) [address] [facility], [place], [address], 12/18/2023 08:29:53 12/17/19 24 12/18/2023 CBC WITH DIFFE RENTI AL/PL ATELE T baso (absolute) 0.0 x10e3 /uL 0.0-0. 2 Not Available [facility] ([facility]) [address] [facility], [place], [address], 12/18/2023 08:29:53 12/17/19 24 12/18/2023 CBC WITH DIFFE RENTI AL/PL ATELE T immature granulocytes 0 % notest ab. Not Available [facility] ([facility]) [address] [place], [address], 12/18/2023 08:29:53 12/17/19 24 12/18/2023 CBC WITH DIFFE RENTI AL/PL ATELE T immature grans (abs) 0.0 x10e3 /uL 0.0-0. 1 Not Available [facility] ([facility]) [address] [place], [address], 12/18/2023 08:29:53 12/17/19 24 12/17/2023 HbA1c (hemo globi n A1c), blood HbA1c 7.4 Not Available In-Office Order Internal Use Only DO Not Attach Compendium DO Not Attach Compendium, Do Not Delete/merge, [id number] 12/17/2023 15:26:42 04/16/20 24 04/17/2024 LIPID PANEL cholesterol, total 162 mg/dL 100-19 9 Not Available [facility] ([facility]) [address] [place], [address], 04/17/2024 08:27:12 04/16/20 24 04/17/2024 LIPID PANEL triglyceride s 140 mg/dL 0-149 Not Available [facility] ([facility]) [address] [place], [address], 04/17/2024 08:27:12 04/16/20 24 04/17/2024 LIPID PANEL HDL cholesterol 38 mg/dL >39 below low normal Not Available [facility] ([facility]) [address] [place], [address], 04/17/2024 08:27:12 04/16/20 24 04/17/2024 LIPID PANEL VLDL cholesterol geraldine 25 mg/dL 5-40 Not Available [facility] ([facility]) [address] [place], [address], 04/17/2024 08:27:12 04/16/20 24 04/17/2024 LIPID PANEL LDL chol calc ([facility]) 99 mg/dL 0-99 Not Available [facility] ([facility]) [address] [place], [address], 04/17/2024 08:27:12 04/16/20 24 04/17/2024 COMP. METAB OLIC PANEL (14) glucose 109 mg/dL 70-99 above high normal Not Available [facility] ([facility]) [address] [place], [address], 04/17/2024 08:27:13 04/16/20 24 04/17/2024 COMP. METAB OLIC PANEL (14) BUN 15 mg/dL 8-27 Not Available [facility] ([facility]) [address] [place], [address], 04/17/2024 08:27:13 04/16/20 24 04/17/2024 COMP. METAB OLIC PANEL (14) creatinine 0.77 mg/dL 0.76-1 .27 Not Available [facility] ([facility]) [address] [facility], [address], 04/17/2024 08:27:13 04/16/20 24 04/17/2024 COMP. METAB OLIC PANEL (14) eGFR 95 mL/mi n/1.7 3 >59 Not Available [facility] ([facility]) [address] [place] [place], [address], 04/17/2024 08:27:13 04/16/20 24 04/17/2024 COMP. METAB OLIC PANEL (14) BUN/creatini ne ratio 19 10-24 Not Available [facility] ([facility]) [address] [place] [place], [address], 04/17/2024 08:27:13 04/16/20 24 04/17/2024 COMP. METAB OLIC PANEL (14) sodium 140 mmol/ L 134-14 4 Not Available [facility] ([facility]) [address] [place], [address], 04/17/2024 08:27:13 04/16/20 24 04/17/2024 COMP. METAB OLIC PANEL (14) potassium 5.1 mmol/ L 3.5-5. 2 Not Available [facility] ([facility]) [address] [place], [address], 04/17/2024 08:27:13 04/16/20 24 04/17/2024 COMP. METAB OLIC PANEL (14) chloride 102 mmol/ L 96-106 Not Available [facility] ([facility]) [address] [place], [address], 04/17/2024 08:27:13 04/16/20 24 04/17/2024 COMP. METAB OLIC PANEL (14) carbon dioxide, total 23 mmol/ L 20-29 Not Available [facility] ([facility]) [address] [place] [place], [address], 04/17/2024 08:27:13 04/16/20 24 04/17/2024 COMP. METAB OLIC PANEL (14) calcium 9.6 mg/dL 8.6-10 .2 Not Available [facility] ([facility]) [address] [place], [address], 04/17/2024 08:27:13 04/16/20 24 04/17/2024 COMP. METAB OLIC PANEL (14) protein, total 7.6 g/dL 6.0-8. 5 Not Available [facility] ([facility]) [address] [place], [address], 04/17/2024 08:27:13 04/16/20 24 04/17/2024 COMP. METAB OLIC PANEL (14) albumin 4.5 g/dL 3.8-4. 8 Not Available [facility] ([facility]) [address] [place], [address], 04/17/2024 08:27:13 04/16/20 24 04/17/2024 COMP. METAB OLIC PANEL (14) globulin, total 3.1 g/dL 1.5-4. 5 Not Available [facility] ([facility]) [address] [place], [address], 04/17/2024 08:27:13 04/16/20 24 04/17/2024 COMP. METAB OLIC PANEL (14) bilirubin, total 0.9 mg/dL 0.0-1. 2 Not Available [facility] ([facility]) [address] [place], [address], 04/17/2024 08:27:13 04/16/20 24 04/17/2024 COMP. METAB OLIC PANEL (14) alkaline phosphatase 72 IU/L 44-121 Not Available [facility] ([facility]) [address] [place], [address], 04/17/2024 08:27:13 04/16/20 24 04/17/2024 COMP. METAB OLIC PANEL (14) AST (SGOT) 30 IU/L 0-40 Not Available [facility] ([facility]) [address] [facility], [place], [address], 04/17/2024 08:27:13 04/16/20 24 04/17/2024 COMP. METAB OLIC PANEL (14) ALT (SGPT) 33 IU/L 0-44 Not Available [facility] ([facility]) [address] [facility], [place], [address], 04/17/2024 08:27:13 04/16/20 24 04/17/2024 HEMOG LOBIN A1C hemoglobin A1C 7.7 % 4.8-5. 6 above high normal Predi abete s: 5.7 - 6.4 Diabe jarocho: >6.4 Glyce jessica contr ol for adult s with diabe jarocho: <7.0 Not Available [facility] ([facility]) [address] [place], [address], 04/17/2024 08:27:13 04/16/20 24 04/17/2024 CBC WITH DIFFE RENTI AL/PL ATELE T WBC 10.3 x10e3 /uL 3.4-10 .8 Not Available [facility] ([facility]) [address] [place], [address], 04/17/2024 08:27:14 04/16/20 24 04/17/2024 CBC WITH DIFFE RENTI AL/PL ATELE T RBC 5.01 x10e6 /uL 4.14-5 .80 Not Available [facility] ([facility]) [address] [facility], [place], [address], 04/17/2024 08:27:14 04/16/20 24 04/17/2024 CBC WITH DIFFE RENTI AL/PL ATELE T hemoglobin 15.7 g/dL 13.0-1 7.7 Not Available [facility] ([facility]) [address] [facility], [place], [address], 04/17/2024 08:27:14 04/16/20 24 04/17/2024 CBC WITH DIFFE RENTI AL/PL ATELE T hematocrit 46.9 % 37.5-5 1.0 Not Available [facility] ([facility]) [address] [place], [address], 04/17/2024 08:27:14 04/16/20 24 04/17/2024 CBC WITH DIFFE RENTI AL/PL ATELE T MCV 94 fL 79-97 Not Available [facility] ([facility]) [address] [place], [address], 04/17/2024 08:27:14 04/16/20 24 04/17/2024 CBC WITH DIFFE RENTI AL/PL ATELE T MCH 31.3 pg 26.6-3 3.0 Not Available [facility] ([facility]) [address] [place], [address], 04/17/2024 08:27:14 04/16/20 24 04/17/2024 CBC WITH DIFFE RENTI AL/PL ATELE T MCHC 33.5 g/dL 31.5-3 5.7 Not Available [facility] ([facility]) [address] [place], [address], 04/17/2024 08:27:14 04/16/20 24 04/17/2024 CBC WITH DIFFE RENTI AL/PL ATELE T RDW 13.2 % 11.6-1 5.4 Not Available [facility] ([facility]) [address] [facility], [place], [address], 04/17/2024 08:27:14 04/16/20 24 04/17/2024 CBC WITH DIFFE RENTI AL/PL ATELE T platelets 223 x10e3 /uL 150-45 0 Not Available [facility] ([facility]) [address] [facility], [place], [address], 04/17/2024 08:27:14 04/16/20 24 04/17/2024 CBC WITH DIFFE RENTI AL/PL ATELE T neutrophils 74 % notest ab. Not Available [facility] ([facility]) [address] [facility], [place], [address], 04/17/2024 08:27:14 04/16/20 24 04/17/2024 CBC WITH DIFFE RENTI AL/PL ATELE T lymphs 16 % notest ab. Not Available [facility] ([facility]) [address] [facility], [place], [address], 04/17/2024 08:27:14 04/16/20 24 04/17/2024 CBC WITH DIFFE RENTI AL/PL ATELE T monocytes 7 % notest ab. Not Available [facility] ([facility]) [address] [facility], [place], [address], 04/17/2024 08:27:14 04/16/20 24 04/17/2024 CBC WITH DIFFE RENTI AL/PL ATELE T eos 2 % notest ab. Not Available [facility] ([facility]) [address] [facility], [place], [address], 04/17/2024 08:27:14 04/16/20 24 04/17/2024 CBC WITH DIFFE RENTI AL/PL ATELE T basos 1 % notest ab. Not Available [facility] ([facility]) [address] [facility], [place], [address], 04/17/2024 08:27:14 04/16/20 24 04/17/2024 CBC WITH DIFFE RENTI AL/PL ATELE T neutrophils (absolute) 7.6 x10e3 /uL 1.4-7. 0 above high normal Not Available [facility] ([facility]) [address] [facility], [place], [address], 04/17/2024 08:27:14 04/16/20 24 04/17/2024 CBC WITH DIFFE RENTI AL/PL ATELE T lymphs (absolute) 1.7 x10e3 /uL 0.7-3. 1 Not Available [facility] ([facility]) [address] [facility], [place], [address], 04/17/2024 08:27:14 04/16/20 24 04/17/2024 CBC WITH DIFFE RENTI AL/PL ATELE T monocytes(ab solute) 0.8 x10e3 /uL 0.1-0. 9 Not Available [facility] ([facility]) [address] [facility], [place], [address], 04/17/2024 08:27:14 04/16/20 24 04/17/2024 CBC WITH DIFFE RENTI AL/PL ATELE T eos (absolute) 0.2 x10e3 /uL 0.0-0. 4 Not Available [facility] ([facility]) [address] [facility], [place], [address], 04/17/2024 08:27:14 04/16/20 24 04/17/2024 CBC WITH DIFFE RENTI AL/PL ATELE T baso (absolute) 0.1 x10e3 /uL 0.0-0. 2 Not Available [facility] ([facility]) [address] [facility], [place], [address], 04/17/2024 08:27:14 04/16/20 24 04/17/2024 CBC WITH DIFFE RENTI AL/PL ATELE T immature granulocytes 0 % notest ab. Not Available [facility] ([facility]) [address] [facility], [place], [address], 04/17/2024 08:27:14 04/16/20 24 04/17/2024 CBC WITH DIFFE RENTI AL/PL ATELE T immature grans (abs) 0.0 x10e3 /uL 0.0-0. 1 Not Available [facility] ([facility]) [address] [facility], [place], [address], 04/17/2024 08:27:14 04/16/20 24 04/18/2024 C DIFFI CILE TOXIN S A+B, EIA C difficile toxins A+B, EIA NEGATI VE negati ve Not Available [facility] ([facility]) [address] [facility], [place], [address], 04/18/2024 15:10:07 04/17/20 24 04/22/2024 OVA + TARIQ ITE EXAM ova + parasite exam FINAL REPORT These resul ts were obtai surya using wet prepa ratio n(s) and trich abhay stain ed smear . This test does not inclu de testi ng for Crypt ospor idium parvu m, Cyclo spora , or Micro spori demetri. Not Available [facility] ([facility]) [address] [facility], [place], [address], 04/22/2024 14:36:47 04/17/20 24 04/22/2024 OVA + TARIQ ITE EXAM result 1 COMMEN T No ova, cysts , or tariq ites seen. One negat chaz speci men does not rule out the possi bilit y of a tariq itic infec tion. Not Available [facility] ([facility]) [address] [facility], [place], [address], 04/22/2024 14:36:47 Result Notes None recorded. Problems Name Problem SNOMED Code Status Onset Date Resolution Date Notes Provider Name and Address Organization Details Recorded Time Type 2 diabetes mellitus 34011409 Active 2023 SIVA Altamirano, [facility] 4 10:11:53 Essential hypertension 31923336 Active 2023 Sofi Combs MA null, [facility] 4 10:11:57 Hyperlipidemia 63404426 Active 2023 Sofi Combs MA null, [facility] 4 10:12:06 Tremor 73779640 Active 2023 SIVA Altamirano, [facility] 4 10:12:11 Gastroesophage al reflux disease 457446984 Active 2023 SIVA Altamirano, [facility] 4 10:12:16 History of cerebrovascula r accident 717162094 Active 2023 Sofi Combs MA null, [facility] 4 10:12:35 Cervical spondylosis 516080168 Active 2023 SIVA Altamirano, [facility] 4 10:12:42 Gout 93173754 Active 2023 Caroline Hunter MD Attn: Maldonado dominguez,[id number] [place], [id number] [facility] 4 22:48:29 Problem Notes None recorded. Procedures Surgical History Date Name Laterality Status Provider Name and Address Organization Details Recorded Time total knee replacement completed Aarti Galindo [place] - [facility] 12/17/2023 11:07:41 Imaging Results None recorded. Procedure Notes None recorded. Medical Equipment None Reported. Allergies No known drug allergies Medications Name Sig Start Date Stop Date Status Note LastModified by Organization Details LastModified Time latanoprost 0.005 % eye drops active Not Available Not Available Not Available terazosin 5 mg capsule Take 1 capsule every day by oral route. active Not Available Not Available No t Available fluconazole 100 mg tablet TAKE 1 TABLET BY MOUTH EVERY DAY FOR 10 DAYS 04/16 completed Not Available Not Available Not Available primidone 50 mg tablet TAKE 1 TABLET BY MOUTH TWICE A DAY 2024 active Not Available Not Available Not Avai lable atorvastati n 80 mg tablet Take 1 tablet every day by oral route. 04/16 completed Not Available Not Available Not Available atorvastati n 10 mg tablet TAKE 1 TABLET BY MOUTH EVERY DAY 2024 active Not Available Not Available Not Avai lable fosinopril 20 mg tablet TAKE 1 TABLET BY MOUTH EVERY DAY 2024 active Not Available Not Available Not Avai lable ciprofloxac in 500 mg tablet TAKE 1 TABLET BY MOUTH TWICE A DAY FOR 7 DAYS 12/17 completed Not Available Not Available Not Available amlodipine 10 mg tablet TAKE 1 TABLET BY MOUTH EVERY DAY 2024 active Not Available Not Available Not Avai lable glimepiride 4 mg tablet TAKE 1 TABLET BY MOUTH TWICE A DAY 2024 active Not Available Not Available Not Avai lable omeprazole 20 mg capsule,del ayed release TAKE 1 CAPSULE BY MOUTH EVERY DAY 2024 active Not Available Not Available Not Avai lable allopurinol 300 mg tablet TAKE 1 TABLET BY MOUTH EVERY DAY 2024 active Not Available Not Available Not Avai lable colchicine 0.6 mg tablet TAKE (ORAL) DIRECTED FOR 1 DAYS 2 TABLETS ONCE THEN 1 TABLET ONE HOUR LATER. active Not Available Not Available No t Available clobetasol 0.05 % scalp solution PLEASE SEE ATTACHED FOR DETAILED DIRECTION S 04/16 completed Not Available Not Available Not Available finasteride 5 mg tablet TAKE 1 TABLET BY MOUTH EVERY DAY 2024 active Not Available Not Available Not Avai lable ASA Buff (Mag Carb-Al Glyc) 325 mg tablet Take 1 tablet every day by oral route. 04/16 completed Not Available Not Available Not Available terazosin 04/16 completed Not Available Not Available Not Available amlodipine besylate (bulk) 12/17 completed Not Available Not Available Not Available Farxiga 10 mg tablet Take 1 tablet every day by oral route. 2023 active Not Available Not Available Not Avai lable Farxiga 5 mg tablet Take 1 tablet every day by oral route. 05/07 completed Not Available Not Available Not Available Tresiba FlexTouch U-200 insulin 200 unit/mL (3 mL) subcutaneou s pen Inject by subcutane ous route. active Not Available Not Available No t Available latanoprost (PF) 0.005 % eye drops 1 drop in both eyes nightly active Not Available Not Available No t Available aspirin 81 mg capsule Take 1 capsule every day by oral route. active Not Available Not Available No t Available Vitals Date Recorded Body height Body mass index (BMI) Body weight Body temperature Heart rate Oxygen saturation Oxygen saturation in Arterial blood by Pulse oximetry Systolic blood pressure Diastolic blood pressure Provider Name and Address Organization Details Last Updated DateTime 4 167.64 cm 35.2 kg/m2 16097.1 4 g 98.5 [degF] 70 /min 96 % 96 % 145 mm[Hg] 99 mm[Hg] Aarti Galindo MA [facility] 4 11:17:39 Date Recorded Body height Body mass index (BMI) Body weight Heart rate Oxygen saturation Oxygen saturation in Arterial blood by Pulse oximetry Systolic blood pressure Diastolic blood pressure Provider Name and Address Organization Details Last Updated DateTime 4 167.64 cm 33.7 kg/m2 98774.0 9 g 65 /min 97 % 97 % 126 mm[Hg] 74 mm[Hg] Hamlet Johns MA [facility] 4 11:28:25 Date Recorded Body height Body mass index (BMI) Body weight Heart rate Oxygen saturation Oxygen saturation in Arterial blood by Pulse oximetry Systolic blood pressure Diastolic blood pressure Provider Name and Address Organization Details Last Updated DateTime 4 167.64 cm 33.4 kg/m2 54066.6 2 g 62 /min 98 % 98 % 138 mm[Hg] 70 mm[Hg] Mansi Philippe MA [facility] 4 12:07:26 Social History Question Answer Notes LastModified by Organizat ion Details LastModified Time Tobacco Smoking Status Never Smoker Aarti Galindo MA [facility] 12/17/2023 11:06:17 Do You Have An Advance Directive? No Information n ot available 12/17/2023 What Is Your Level Of Alcohol Consumption? Occasional Information not available 12/17/2023 Are You Blind Or Do You Have Difficulty Seeing? No Information n ot available 08/13/2024 What Is Your Level Of Caffeine Consumption? Moderate Information not available 12/17/2023 In The 14 Days Before Symptom Onset, Have You Had Close Contact With A Laboratory-confirm ed COVID-19 While That Case Was Ill? No Information n ot available 08/13/2024 In The 14 Days Before Symptom Onset, Have You Had Close Contact With A Person Who Is Under Investigation For COVID-19 While That Person Was Ill? No Information not available 08/13/2024 Have You Been To An Area Known To Be High Risk For COVID-19? No Information not available 08/13/2024 Are You Currently Employed? No Information not available 08/13/2024 Are You Deaf Or Do You Have Serious Difficulty Hearing? No Information not available 08/13/2024 What Type Of Diet Are You Following? REGULAR Information n ot available 12/17/2023 Are There Any Guns Present In Your Home? No Information not available 08/13/2024 What Was The Date Of Your Most Recent Tobacco Screening? 08/13/2024 Information not available 08/13/2024 What Is Your Relationship Status? Information not available 12/17/2023 Do You Use Your Seat Belt Or Car Seat Routinely? Yes Information not available 12/17/2023 Do You Have Smoke And Carbon Monoxide Detectors In Your Home? Yes Information not available 12/17/2023 Do You Use Any Illicit Or Recreational Drugs? No Information not available 12/17/2023 Do You Use Sunscreen Routinely? No Information not available 12/17/2023 Has Tobacco Cessation Counseling Been Provided? No Information not available 08/13/2024 On What Date Was Tobacco Cessation Counseling Provided? 08/13/2024 Information not available 08/13/2024 Do You Or Have You Ever Used Any Other Forms Of Tobacco Or Nicotine? No Information not available 12/17/2023 Sex: Male Functional Status Question Answer Note LastModified by Organizat ion Details LastModified Time Are you able to care for yourself? Yes Information not available 08/13/2024 What is your exercise level? Occasional Information not available 12/17/2023 Mental Status None recorded. Family History Relationship Description Onset Age of this Age Resolved Age Notes LastModified by Organization Details LastModified Time Father Diabetes mellitus 86 [email or web address] Not available 11/22 11:05:10 Mother Malignant tumor of ovary 78 [email or web address] Not available 11/22 11:05:33 Medical History Condition Response High Blood Pressure Y Atrial Fibrillation N Kidney or Bladder Problems Thyroid Problems N Blood Clots N COPD N Depression N GI Problems Y Anxiety Disorder N Diabetes Y Seizures/Epilepsy N Cancer N Stroke Y Asthma N Allergies N High Cholesterol Y Hepatitis N Liver Disease Y Heart Failure N Immunizations Vaccine Type Date Status Note Provider Nam e and Address Organization Details Recorded Time zoster recombinant 3 completed Sofi Combs [place], [place] - [facility] 12/17/2023 11:23:53 zoster recombinant 3 completed Sofi Combs [place] [facility] 12/17/2023 11:23:53 Influenza, high-dose, quadrivalent, PF 1 completed Sofi Combs [place] [facility] 12/17/2023 11:23:53 Influenza, high-dose, quadrivalent, PF 2 completed Sofi Combs [place] [facility] 12/17/2023 11:23:53 Influenza, adjuvanted, quadrivalent, PF 3 completed Sofi Combs [place] [facility] 12/17/2023 11:23:53 COVID-19, mRNA, LNP-S, PF, 30 mcg/0.3 mL dose 1 completed Sofi Combs [place] [facility] 12/17/2023 11:23:53 COVID-19, mRNA, LNP-S, PF, 30 mcg/0.3 mL dose 1 completed Sofi Combs [place] [facility] 12/17/2023 11:23:53 COVID-19, mRNA, LNP-S, PF, 30 mcg/0.3 mL dose 1 completed SIVA [place] [facility] 12/17/2023 11:23:53 Pneumococcal conjugate PCV 13 8 [place] SIV[place] [facility] 12/17/2023 11:23:53 Influenza, high-dose, trivalent, PF 8 [place] [facility] 12/17/2023 11:23:53 Influenza, high-dose, trivalent, PF 7 [place] [facility] 12/17/2023 11:23:53 Influenza, high-dose, trivalent, PF 6 [place] [facility] 12/17/2023 11:23:53 Influenza, high-dose, trivalent, PF 9 [place] [facility] 12/17/2023 11:23:53 Influenza, high-dose, trivalent, PF 2 [place] [facility] 12/17/2023 11:23:53 Influenza, split virus, trivalent, preservative 3 [place] [facility] 12/17/2023 11:23:53 Influenza, split virus, trivalent, preservative 1 [place] [facility] 12/17/2023 11:23:53 Influenza, split virus, trivalent, PF 5 [place] [facility] 12/17/2023 11:23:53 Influenza, split virus, quadrivalent, PF 4 [place] [facility] 12/17/2023 11:23:53 Past Encounters Encounter ID Performer Location Encounter Start Date Encounter Closed Date Diagnosis/Indication Diagnosis SNOMED-CT Code Diagnosis ICD10 Code Diagnosis Note [id number] MD Ani Wagoner (Adult Med) [address] [place], [place] [phone] 12/17/2023 10:40:15 12/17/2023 12:06:55 Type 2 diabetes mellitus 80501636 E11.9 Essential hypertension 99129237 I10 Hyperlipidemia 92918674 E78.5 Tremor 18857032 R25.1 Gastroesop hageal reflux disease without esophagitis 744371609 K21.9 History of cerebrovascular accident 158900530 Z86.73 Cervical spondylosis 387 911119 M47.643 [id number] Caroline Hunter MD [facility] [employer] [address] [place] [phone] 04/16/2024 10:57:58 04/16/2024 12:17:16 Type 2 diabetes mellitus 64684141 E11.9 Hyperlipidemia 30080609 E78.5 Essential hypertension 18337794 I10 Diarrhea 72508578 R19.7 Gastroesop hageal reflux disease 852287026 K21.9 [id number] Caroline Hunter MD [facility] [employer] [address] [place] [address] 08/13/2024 11:02:49 08/13/2024 13:13:21 Essential hypertension 17387519 I10 Type 2 demetri betes mellitus 74102307 E11.9 Gastroesop hageal reflux disease 493111662 K21.9 Hyperlipidemia 19612956 E78.5 Gout 41200312 M10.9 Health Concerns Section Related Observation LastModified by Organization Detai ls LastModified Time None Recorded Concern Status LastModified by Organization Details LastModified Time None Recorded Advance Directives Directive N: Payers Encounter Date Sequence Insurance Name Policy Number Policy Roper Covered Member ID Roper Member ID Guarantor Name 12/17/2023 1 [facility] (MEDICARE REPLACEMENT/A DVANTAGE - PPO) [id number] Neo Abraham [id number] Neo Abraham 04/16/2024 1 [facility] (MEDICARE REPLACEMENT/A DVANTAGE - PPO) [id number] Neo Abraham [id number] Neo Abraham 08/13/2024 1 [facility] (MEDICARE REPLACEMENT/A DVANTAGE - PPO) [id number] Neo Abraham [id number] Neo Abraham Notes Date Note Type Note Provider Name and Address Organization Details Recorded Time 12/17/2023 text/html Some tremor but he uses a. GERD no nausea no vomiting. Dyslipidemia does try to follow low-fat diet. Diabetes no polyphasia no polydipsia. History of stroke no new complaints or symptoms of stroke DJD cervical spine his radicular symptoms have abated gout no flareups Caroline Hunter MD Attn: [employer] , [place], [address], [facility] 12/28/2023 22:13:32 04/16/2024 text/html Regular follow u p medical problems painless diarrhea with no blood or mucus in his stool going on for a couple of weeks now weight loss does not have any well water at home no sick contacts has not really tried to take anything. Diabetes no polyphagia or polydipsia not taking sugars like he should but they are about 140 when he takes it. Hypertension no chest pain headache or shortness of breath no dizziness. Hyperlipidemia does try to follow a low-fat diet Caroline Hunter MD Attn: [employer] [facility], [place], [address], [facility] 04/18/2024 09:23:13 08/13/2024 text/html hypertension no headache dizziness blood pressure control. GERD no nausea vomiting or heartburn. Gout there has not been any flare-ups dyslipidemia diet has been a little bit less than stellar. Diabetes no polyphagia no polydipsia admittedly though his diet could be better Caroline Hunter MD Attn: [employer] [facility], [place], [address], [facility] 08/16/2024 22:50:32
--- OUTSIDE RECORDS SUMMARY | 2024-12-16 16:48 | XMS_ITS | Encounter Summary ---
Author Organization [facility] [employer] [facility] Address [address] [place] [address] Care Team Providers Care Roll Press Operator Name Role Phone Wally Hunter MD Primary Care Provider [phone] Reason for Referral * Laboratory Services (Routine) - Open Specialty Diagnoses / Procedures Referred By Jose orellana Referred To Contact Diagnoses Erythrocytosis Procedures JAK2 MUTATION Tommy Moreno MD [address] [place] [phone] Phone: tel: fax: Referral ID Status Reason Start Date Expiration Date Visits Re quested Visits Authorized [id number] Open 12/16/2024 01/16/2026 1 1 MANAGEMENT ASSOCIATE * Laboratory Services (Routine) - Open Specialty Diagnoses / Procedures Referred By Jose orellana Referred To Contact Diagnoses Leukocytosis, unspecified type Procedures BCR/ABL1, MONITORING QUANTITATIVE Tommy Moreno MD [address] [place] [phone] Phone: tel: fax: Referral ID Status Reason Start Date Expiration Date Visits Re quested Visits Authorized [id number] Open 12/16/2024 01/16/2026 1 1 MANAGEMENT ASSOCIATE Reason for Visit * Reason Comments Establish Care Encounter Details Date Type Department Care Team (Late st Contact Info) Description 12/16/2024 1:30 PM CASE MANAGEMENT ASSOCIATE Office Visit [facility] Oncology and Hematology - [place] [address] [place], [place] [phone] Tommy Moreno MD [address] [facility] [address] [place] [address] Leukocytosis, unspecified type (Primary Dx); Erythrocytosis; Other specified diabetes mellitus with other specified complication, with long-term current use of insulin ([facility]) Social History Tobacco Use Types Packs/Day Years Used Date Smoking Tobacco: Never Smokeless Tobacco: Never Alcohol Use Standard Drinks/Week Comments Yes 0 (1 standard drink = 0.6 oz pur e alcohol) Occasionally Sex and Gender Information Value Date Recorded Sex Assigned at Not on file Legal Sex Male 10:48 AM CASE MANAGEMENT ASSOCIATE Gender Identity Not on file Sexual Orientation Not on file documented as of this encounter Last Filed Vital Signs Vital Sign Reading Time Taken Comments Blood Pressure 153/86 12/16/2024 2:00 PM CASE MANAGEMENT ASSOCIATE Pulse 79 12/16/2024 1:57 PM CASE MANAGEMENT ASSOCIATE Temperature 36.3 C (97.4 F) 12/16/2024 1:57 PM CASE MANAGEMENT ASSOCIATE Respiratory Rate 15 12/16/2024 1:57 PM CASE MANAGEMENT ASSOCIATE Oxygen Saturation 95% 12/16/2024 1:57 PM CASE MANAGEMENT ASSOCIATE Inhaled Oxygen Concentration - - Weight 97.3 kg (214 lb 6.4 oz) 12/16/2024 1:57 P M CASE MANAGEMENT ASSOCIATE Height 170.2 cm (5' 7 ) 12/16/2024 1:57 PM CASE MANAGEMENT ASSOCIATE Body Mass Index 33.58 12/16/2024 1:57 PM CASE MANAGEMENT ASSOCIATE documented in this encounter Progress Notes * Tommy Moreno MD - 12/16/2024 2:24 PM CST Hematology-oncology consult Note Requesting Physician Wally Hunter MD Primary Care Physician Wally Hunter MD Problem list There is no problem list on file for this patient. Previous TREATMENT ? Measurable Disease ? Reason for Visit Neo Abraham is a 74 y.o. male who was referred for consultation for erythrocytosis and leukocytosis. History of present illness This is a pleasant 74-year-old male with multiple comorbidities including history of stroke in 2018 currently on aspirin, gout, GERD, BPH, hypertension, hyperlipidemia and diabetes referredto me for erythrocytosis and leukocytosis. He denies any history of smoking and COPD but does snorebut not been diagnosed with sleep apnea yet. He denies any use of hormone therapy. He has gained 7 to 8 pound weight recently. He complain of itching in the nighttime. He has generalized arthralgia. Labs from September 2024 showed WBC of 11.9 and hemoglobin of 16.7. He denies any new lung bumps or lymphadenopathy. Denies any night sweats fevers and chills. No other new complaints. Past Medical History Past Medical History: Diagnosis Date Diabetes mellitus (CMS/HCC) Hypertension Stroke (cerebrum) (CMS/HCC) Hyperlipidemia BPH GERD Gout Surgical History Past Surgical History: Procedure Laterality Date HX KNEE REPLACEMENT 2012 Medications Current Outpatient Medications Medication Sig Dispense Refill primidone (MYSOLINE) 50 mg tablet Take 1 Tablet by mouth 2 times daily. allopurinoL (ZYLOPRIM) 300 mg tablet Take 1 Tablet by mouth daily. atorvastatin (LIPITOR) 10 mg tablet Take 1 Tablet by mouth daily. amLODIPine (NORVASC) 10 mg tablet Take 1 Tablet by mouth daily. finasteride (PROSCAR) 5 mg tablet Take 1 Tablet by mouth daily. fosinopriL (MONOPRIL) 20 mg tablet Take 1 Tablet by mouth daily. omeprazole (PriLOSEC) 20 mg Capsule, Delayed Release(E.C.) Take 1 Capsule by mouth daily. APPLE CIDER VINEGAR ORAL Take 450 mg by mouth daily. MAGNESIUM CITRATE ORAL Take 400 mg by mouth daily. ubiquinol (QUNOL TIFFANI COQ10 ORAL) Take 100 mg by mouth daily. terazosin HCl (TERAZOSIN ORAL) Take 5 mg by mouth daily. dapagliflozin propanediol (Farxiga) 5 mg Tablet Take 5 mg by mouth daily. aspirin (RACHANA) 325 mg tablet Take 325 mg by mouth daily. glimepiride (AMARYL) 4 mg tablet Take 4 mg by mouth 2 times daily. insulin degludec 100 unit/mL Solution Inject 36 Units by subcutaneous injection. latanoprost (XALATAN) 0.005 % solution 1 Drop by Ophthalmic route. NIFEdipine (PROCARDIA XL) 60 mg Extended Release 24 hour tablet Take 60 mg by mouth daily. No current facility-administered medications for this visit. Allergies No Known Allergies Immunizations: There is no immunization history on file for this patient. Family History Family History Problem Relation Name Age of Onset Diabetes Father Colon Cancer Mother No Known Problems Brother Diabetes Sister No Known Problems Sister No Known Problems Sister No Known Problems Child Social History Social History Tobacco Use Smoking status: Never Smokeless tobacco: Never Substance Use Topics Alcohol use: Yes Comment: Occasionally Review of Systems Constitutional: Patient did not mention fever; no night sweats; no anorexia; 8 pound weight gain, denies any tiredness and fatigue, complain of occasional itching NEENT: Patient did not mention headache; no change in vision; no change in hearing; no sore throat;no dysphagia Respiratory: Patient did not mention shortness of breath; no pleuritic chest pain; no cough; no hemoptysis Cardiac: Patient did not mention cardiac-like chest pain; no palpitations; no orthopnea; no PND; noDOE GI: Patient did not mention abdominal pain; no nausea; no vomiting; no diarrhea; no hematochezia; no melena : Patient did not mention dysuria; no frequency; no hesitancy; no hematuria DATA WAREHOUSE ARCHITECT: Musculosketetal: Patient did not mention bone pain; no arthralgia; no joint swelling; no myalgia; Skin: Patient did not mention pruritis; no rash; no petechiae; no ecchymoses Endocrine: Patient did not mention polydipsia; no polyuria; no unusual weight gain Neuro: Patient did not mention headache; no change in vision; no sensory changes; no muscle weakness; no confusion; no seizures Psych: Patient did not mention anxiety; no depression; Physical Exam Vitals: As per nursing note Constitutional: Well developed, well nourished, no acute distress, non-toxic appearance Teeth and gum. No signs of infection or swelling. Eyes: PERRL, conjunctiva normal HEENT: Atraumatic, external ears normal, nose normal, oropharynx moist, no pharyngeal exudates. no sinus tenderness Neck- normal range of motion, no tenderness, supple Respiratory: No respiratory distress, normal breath sounds, no rales, no wheezing Cardiovascular: Normal rate, normal rhythm, no murmurs, no gallops, no rubs GI: Soft, nondistended, normal bowel sounds, nontender, no splenomegaly, no hepatomegaly, no mass, no rebound, no guarding : No costovertebral angle tenderness Musculoskeletal: No edema, no tenderness, no deformities. Back- no tenderness Integument: Well hydrated, no rash, Digits and nails inspection normal Lymphatic: No lymphadenopathy noted Neurologic: Alert & oriented x 3, CN 2-12 normal, normal motor function, normal sensory function, no focal deficits noted Psychiatric: Speech and behavior appropriate ? labs No results found for this or any previous visit (from the past 24 hours). Labs from September 22, 2024 showed WBC 11.9 hemoglobin 16.7 hematocrit 48.4 platelet 227,000 neutrophils 70% lymphocyte 18% Pathology ? Imaging & Other Studies Performance Status? Assessment / Plan: ? Erythrocytosis. Patient is a 74-year-old pleasant male with multiple comorbidities including history of stroke in 2018, gout, GERD, hypertension, diabetes and hyperlipidemia referred to me for erythrocytosis and leukocytosis. He denies any history of smoking. He denies any chest pain and shortness of breath. He has gained 8 pound weight recently. He does have some itching at the nighttime. Denies any history of sleep apnea but does have some history of snoring. I have discussed the differential diagnosis of erythrocytosis. This could be secondary to weight gain and sleep apnea versus possibility of underlying bone marrow disorder like polycythemia. I will order the workup that will include CBC with differential, CMP, erythropoietin level and JAK2 mutation. He will continue baby aspirin. Based on the repeat lab we will decide about phlebotomy. I have answered all the questions to patient's satisfaction. Follow- up in 3 weeks. Leukocytosis. I will order flow cytometric analysis for leukemia, C-reactive protein, sedimentationrate and BCR-ABL translocation by PCR. Diabetes. We will order hemoglobin A1c. He has appointment with the primary care physician office tomorrow. He will continue insulin with Amaryl and follow-up with the PCP. History of stroke. Continue baby aspirin. Hyperlipidemia. Continue Lipitor. Hypertension. Continue amlodipine Gout. Patient uses allopurinol as needed. Thank you very much for allowing me to participate in Neo Abraham's evaluation and management. Please feel free to contact if I can be of any further assistance in your patient???s care requiring hematology or oncology evaluation. Sincerely, ? ? Tommy Moreno M.D. cell TOBACCO COUNSELING He is not a tobacco/nicotine user. Tommy Moreno MD ,12/16/2024 2:25 PM ? Total time spent 60 minutes, two third of the total time spent counseling patient [id number]. CC:?Wally Hunter MD MANAGEMENT ASSOCIATE documented in this encounter Plan of Treatment Upcoming Encounters Date Type Department Care Team (Late st Contact Info) Description 01/07/2025 2:15 PM CDT Office Visit [facility] Oncology and Hematology - [place] [address] [facility] [address] [place] [address] Tommy Moreno MD [address] [facility] [address] [place] [address] Scheduled Orders Name Type Priority Associated Diagnoses Orde r Schedule CBC WITH DIFFERENTIAL Lab Stat Leukocytosis, unspecified type Expected: 12/16/2024, Expires: 12/16/2025 COMPREHENSIVE METABOLIC PANEL Lab Stat Leukocytosis, unspecified type Expected: 12/16/2024, Expires: 12/16/2025 BCR/ABL1, MONITORING QUANTITATIVE Lab Routine Leukocytosis, unspecified type Expected: 12/16/2024, Expires: 12/16/2025 ERYTHROPOIETIN LEVEL Lab Routine Erythrocytosis Expected: 12/16/2024, Expires: 12/16/2025 FLOW CYTOMETRY PANEL Lab Routine Leukocytosis, unspecified type Expected: 12/16/2024, Expires: 12/16/2025 C-REACTIVE PROTEIN Lab Routine Leukocytosis, unspecified type Expected: 12/16/2024, Expires: 12/16/2025 SEDIMENTATION RATE Lab Routine Leukocytosis, unspecified type Expected: 12/16/2024, Expires: 12/16/2025 JAK2 MUTATION Lab Routine Erythrocytosis Expected: 12/16/2024, Expires: 12/16/2025 HEMOGLOBIN A1C Lab Routine Other specified diabetes mellitus with other specified complication, with long-term current use of insulin (CMS/[facility]) Expected: 12/16/2024, Expires: 12/16/2025 documented as of this encounter Visit Diagnoses Diagnosis Leukocytosis, unspecified type- Primary Erythrocytosis Reserved for inherently not codable concepts WITHOUT codable children Other specified diabetes mellitus with other specified complication, with long- term current use of insulin (CMS/HCC) documented in this encounter Care Teams Roll Press Operator Relationship Specialty Start Date End Date Wally Hunter MD [address] [place] [phone] PCP - General Internal Medicine 12/16/24 documented as of this encounter
--- OUTSIDE RECORDS SUMMARY | 2024-12-16 16:48 | XMS_ITS | Clinical Summary ---
Author Organization [facility] Address [address] [place] [address] Care Team Providers Care Cause Analyst Name Role Phone Wally Hunter MD Primary Care Provider [phone] Allergies No known active allergies Medications allopurinol 300 MG tablet Take 1 tablet (300 mg total) by mouth daily. 03/27/2013 Active finasteride 5 MG tablet Take 1 tablet (5 mg total) by mouth daily. 03/27/2013 Active fosinopril 20 MG tablet Take 1 tablet (20 mg total) by mouth daily. 03/27/2013 Active NIFEdipine XL 60 MG 24 hr tablet Take 1 tablet (60 mg total) by mouth daily. Active omeprazole 20 MG capsule Take 2 capsules (40 mg total) by mouth daily. 07/06/2013 Active simvastatin 40 MG tablet Take 1 tablet (40 mg total) by mouth. 03/27/2013 Active terazosin 5 MG capsule Take 1 capsule (5 mg total) by mouth. 03/27/2013 Active aspirin 325 MG tabletIndicatio ns:patient stopped on 18 Take 1 tablet (325 mg total) by mouth daily. Indications: patient stopped on 6-18 Active latanoprost 0.005 % ophthalmic solution Place 1 drop into both eyes nightly at bedtime. Active Insulin Degludec (TRESIBA) 100 UNIT/ML Solution Inject 36 Units into the skin once. Active glimepiride (AMARYL) 4 MG tablet Take 1 tablet (4 mg total) by mouth every morning before breakfast. Active Family History Medical History Relation Comments Diabetes Father Heart Disease Father Cancer Mother Relation Status Comments Father Mother Social History Tobacco Use Types Packs/Day Years Used Date Smoking Tobacco: Never Smokeless Tobacco: Never Alcohol Use Standard Drinks/Week Comments Yes 0 (1 standard drink = 0.6 oz pur e alcohol) occassional Sex and Gender Information Value Date Recorded Sex Assigned at Not on file Legal Sex Male 5:15 PM CDT Gender Identity Not on file Sexual Orientation Not on file Last Filed Vital Signs Vital Sign Reading Time Taken Comments Blood Pressure 159/80 10/29/2023 9:29 AM DIRECTOR OF OPERATIONS FOR THERAPY Pulse 69 10/29/2023 9:29 AM DIRECTOR OF OPERATIONS FOR THERAPY Temperature 35.7 C (96.3 F) 10/29/2023 9:00 AM DIRECTOR OF OPERATIONS FOR THERAPY Respiratory Rate 16 10/29/2023 9:29 AM DIRECTOR OF OPERATIONS FOR THERAPY Oxygen Saturation 97% 10/29/2023 9:29 AM DIRECTOR OF OPERATIONS FOR THERAPY Inhaled Oxygen Concentration - - Weight 97.5 kg (215 lb) 10/25/2023 8:22 AM DIRECTOR OF OPERATIONS FOR THERAPY Height 167.6 cm (5' 6 ) 10/25/2023 8:22 AM DIRECTOR OF OPERATIONS FOR THERAPY Body Mass Index 34.7 10/25/2023 8:22 AM DIRECTOR OF OPERATIONS FOR THERAPY Plan of Treatment Health Maintenance Due Date Last Done Comments Colorectal Cancer Screening Colonoscopy (10 Years) 1950 Hepatitis C 1968 Zoster Vaccines (1 of 2) 2000 Annual Medicare Wellness Visit 2015 Pneumococcal Vaccine: 65+ Years (2 of 2 - PPSV23 or PCV20) 07/02/2019 07/02/2018, 07/01/2018 DTaP, Tdap and Td Vaccines (2 - Td or Tdap) 05/05/2022 05/05/2012 COVID-19 Vaccine ( season) 2024 12/13/2020, 11/22/2020 Influenza Adult (#1) 2024 07/25/2022, 07/23/2021, 07/24/2019, Additional history exists RSV Immunization or 60+ Years (1 - 1-dose 75+ series) 2025 Meningococcal B Vaccine Aged Out No l onger eligible based on patient's age to complete this topic Meningococcal Vaccine Aged Out No deysi brian eligible based on patient's age to complete this topic RSV Immunizations Under 20 Months Aged Out No longer eligible based on patient's age to complete this topic Insurance MED REPLACE [facility] MEDICARE Care Teams Cause Analyst Relationship Specialty Start Date End Date Wally Hunter MD [address] [address] PCP - General INTERNAL MEDICINE 04/14/19
--- OUTSIDE RECORDS SUMMARY | 2024-12-16 16:48 | XMS_ITS | Clinical Summary ---
Author Organization [facility] [employer] Address [address] [place] [address] Care Team Providers Care Assessment Nurse Practitioner Name Role Phone Wally Hunter MD Primary Care Provider [phone] Allergies No known active allergies Medications primidone (MYSOLINE) 50 mg tablet Take 1 Tablet by mouth 2 times daily. 5 Active allopurinoL (ZYLOPRIM) 300 mg tablet Take 1 Tablet by mouth daily. 5 Active atorvastatin (LIPITOR) 10 mg tablet Take 1 Tablet by mouth daily. 5 Active amLODIPine (NORVASC) 10 mg tablet Take 1 Tablet by mouth daily. 5 Active aspirin (RACHANA) 325 mg tablet Take 325 mg by mouth daily. Active finasteride (PROSCAR) 5 mg tablet Take 1 Tablet by mouth daily. 5 Active fosinopriL (MONOPRIL) 20 mg tablet Take 1 Tablet by mouth daily. 4 Active glimepiride (AMARYL) 4 mg tablet Take 4 mg by mouth 2 times daily. Active insulin degludec 100 unit/mL Solution Inject 36 Units by subcutaneous injection. Active latanoprost (XALATAN) 0.005 % solution 1 Drop by Ophthalmic route. Active NIFEdipine (PROCARDIA XL) 60 mg Extended Release 24 hour tablet Take 60 mg by mouth daily. Active omeprazole (PriLOSEC) 20 mg Capsule, Delayed Release(E.C.) Take 1 Capsule by mouth daily. 5 Active APPLE CIDER VINEGAR ORAL Take 450 mg by mouth daily. Active MAGNESIUM CITRATE ORAL Take 400 mg by mouth daily. Active ubiquinol (QUNOL TIFFANI COQ10 ORAL) Take 100 mg by mouth daily. Active terazosin HCl (TERAZOSIN ORAL) Take 5 mg by mouth daily. Active dapagliflozin propanediol (Farxiga) 5 mg Tablet Take 5 mg by mouth daily. Active Active Problems No known active problems Encounters Date Type Department Care Team Description 12/16/2024 1:30 PM CREATIVE ARTS THERAPIST Office Visit [facility] Oncology and Hematology [place] [address] [place] [address] Tommy Moreno MD Leukocytosis, unspecified type (Primary Dx); Erythrocytosis; Other specified diabetes mellitus with other specified complication, with long-term current use of insulin ([facility]) from Last 3 Months Family History Medical History Relation Name Comments No Known Problems Brother No Known Problems Child Diabetes Father Colon Cancer Mother Diabetes Sister 1 No Known Problems Sister 2 No Known Problems Sister 3 Relation Name Status Comments Brother Alive Child Alive Father Mother Sister 1 Sister 2 Alive Sister 3 Alive Social History Tobacco Use Types Packs/Day Years Used Date Smoking Tobacco: Never Smokeless Tobacco: Never Alcohol Use Standard Drinks/Week Comments Yes 0 (1 standard drink = 0.6 oz pur e alcohol) Occasionally Sex and Gender Information Value Date Recorded Sex Assigned at Not on file Legal Sex Male 10:48 AM CREATIVE ARTS THERAPIST Gender Identity Not on file Sexual Orientation Not on file Last Filed Vital Signs Vital Sign Reading Time Taken Comments Blood Pressure 153/86 12/16/2024 2:00 PM CREATIVE ARTS THERAPIST Pulse 79 12/16/2024 1:57 PM CREATIVE ARTS THERAPIST Temperature 36.3 C (97.4 F) 12/16/2024 1:57 PM CREATIVE ARTS THERAPIST Respiratory Rate 15 12/16/2024 1:57 PM CREATIVE ARTS THERAPIST Oxygen Saturation 95% 12/16/2024 1:57 PM CREATIVE ARTS THERAPIST Inhaled Oxygen Concentration - - Weight 97.3 kg (214 lb 6.4 oz) 12/16/2024 1:57 P M CREATIVE ARTS THERAPIST Height 170.2 cm (5' 7 ) 12/16/2024 1:57 PM CREATIVE ARTS THERAPIST Body Mass Index 33.58 12/16/2024 1:57 PM CREATIVE ARTS THERAPIST Plan of Treatment Upcoming Encounters Date Type Department Care Team (Late st Contact Info) Description 01/07/2025 2:15 PM CDT Office Visit [facility] Oncology and Hematology [place] [address] [place] [address] Tommy Moreno MD [address] [facility] [address] [place] [address] Health Maintenance Due Date Last Done Comments DTAP/TDAP/TD VACCINES (1 - Tdap) 1969 COLORECTAL SCREENING 1995 Colorectal Cancer Screening 1995 FIT-DNA Q 3 years 1995 FIT/FOBT Q 1 year 1995 Flex Sig/CT Colonography Q 5 years 1995 PNEUMOCOCCAL VACCINE 65+ YEARS (1 of 1 - PCV) 09/01/20 00 ZOSTER VACCINE (1 of 2) 2000 INFLUENZA VACCINE (#1) 2024 [place] Prev entative Visit/Annual Wellness Visit 10/21/2024 RSV VACCINE (60+ or ) (1 - 1-dose 75+ series) 2025 Insurance Care Teams Assessment Nurse Practitioner Relationship Specialty [place] [address] [place] [phone] PCP - General Internal Medicine 12/16/24
--- OUTSIDE RECORDS SUMMARY | 2024-12-16 16:48 | XMS_ITS | Encounter Summary ---
Author Organization [facility] Address [address] [place] [address] Care Team Providers Care Vice President Of Contracts Name Role Phone Wally Hunter MD Primary Care Provider [phone] Encounter Details Date Type Department Care Team (Late st Contact Info) Description 03/28/2019 Abstract SFL CONVERSION [address] [place] [address] , Generic Conversion, Social History Tobacco Use Types Packs/Day Years Used Date Smoking Tobacco: Never Assessed Sex and Gender Information Value Date Recorded Sex Assigned at Not on file Legal Sex Male 5:15 PM CDT Gender Identity Not on file Sexual Orientation Not on file documented as of this encounter Plan of Treatment Not on file documented as of this encounter Visit Diagnoses Not on filedocumented in this encounter Care Teams Vice President Of Contracts Relationship Specialty Start Date End Date Wally Hunter MD [address] [address] PCP - General INTERNAL MEDICINE 04/14/19 documented as of this encounter
[2024-12-16 16:54] LABS: Erythrocyte Sedimentation Rate 5 mm/hr (0-20)
[2024-12-16 18:29] LABS: Alanine Aminotransferase 65 U/L (6-50); Albumin Level 4.7 g/dL (3.5-5.1); Alkaline Phosphatase 79 U/L (38-126); Anion Gap 11 mmol/L (4-12); Aspartate Amino Transferase 61 U/L (17-59); Bilirubin,Total 0.8 mg/dL (0.2-1.3); Blood Urea Nitrogen 17 mg/dL (9-20); CRP < 0.5 mg/dL (<1.0); Calcium 9.6 mg/dL (8.4-10.2); Carbon Dioxide 25 mmol/L (22-30); Chloride 103 mmol/L (98-107); Estimated Glomerular Filt Rate > 60; Glucose 115 mg/dL (65-110); Potassium 4.2 mmol/L (3.4-5.0); Sodium 139 mmol/L (137-145)
[2024-12-21 13:44] LABS: Erythropoietin (EPO) 8.5 mIU/mL (2.6-18.5)
== END 2024-12-16 14:32 | disposition home or self-care (01) ==
LOC: ANHLAB 14:32
PROVIDERS: PCP Internal Medicine; Visit Provider Internal Medicine Hematology & Oncology
DX: D72.829 Elevated white blood cell count, unspecified (principal); D75.1 Secondary polycythemia
CPT/HCPCS: 36415; 80053; 81270; 82668; 85025; 85652; 86140; 88184

== ENCOUNTER 2025-07-01 08:34 | Inpatient (IN) | payer MEDICARE, SELFPAY ==
--- NOTE | ~2025-07-01 | CT_ITS ---
EXAMINATION: CT abdomen pelvis w con DATE: 07/01/2025 09:45 INDICATION: Umbilical pain TECHNIQUE: Computed tomography (CT) of the abdomen and pelvis was performed with 100 mL Omnipaque-350 intravenous contrast. Automated exposure control and iterative reconstruction technique were employed. The dose-length product was 1029.37 mGy-cm. COMPARISON: None FINDINGS: Mild atelectasis in bilateral lower lobes. Heart size is normal. Atherosclerotic coronary artery calcific lesion. Aortic valve calcific lesion. No pericardial or pleural effusion. Liver, gallbladder, spleen and bilateral adrenal glands are normal. Tiny calcified gallstones the dependent aspect of the normal-appearing gallbladder. No intra-axial hepatic biliary ductal dilation or evident choledocholithiasis. There is inflammatory stranding centered around the head of the pancreas extending into the root of the mesentery and bilateral anterior pararenal spaces consistent with acute interstitial pancreatitis. There are a few small nonloculated acute peripancreatic fluid collections in the left upper quadrant. No organized abscess or acute necrotic collections. There are bilateral renal cysts, the largest on the left measuring 5.0 cm. Bowels including the appendix are normal. No pathologically enlarged abdominal or pelvic lymphadenopathy. Mild thoracic and lumbar spondylosis. IMPRESSION: 1. Acute interstitial pancreatitis. Correlate with lipase levels. 2. Cholelithiasis. Reviewed, dictated and finalized at location A.
--- NOTE | ~2025-07-01 | XR_ITS ---
EXAMINATION: XR abdomen/kub 1V DATE: 07/02/2025 08:30 INDICATION: Abdominal pain and distention TECHNIQUE: A supine view of the abdomen on 2 radiographs was obtained. COMPARISON: None. FINDINGS: Nonspecific bowel gas pattern with gas scattered throughout nondilated loops of large and small bowel. Phlebolith in the left hemipelvis. Bones and soft tissues are unremarkable. IMPRESSION: 1. Nonspecific nonobstructive bowel gas pattern. Reviewed, dictated and finalized at location A.
[2025-07-01 08:38] VITALS: BP 180/75; PULSE 90; RESP 20; TEMP 36.4; O2SAT 95
[2025-07-01 08:55] LABS: Hematocrit 48.9 % (42.0-52.0); Hemoglobin 16.1 g/dL (14.0-18.0); Immature Granulocyte Percent A 0.3 % (0-0.5); Lymphocytes Absolute Auto 0.50 K/mm3 (0.9-3.2); Mean Corpuscular HGB Conc 32.9 g/dl (32-36); Mean Corpuscular Hemoglobin 30.6 pg (26-34); Mean Corpuscular Volume 92.8 fl (80-100); Nucleated Red Blood Cells Absolute Auto 0.000 K/mm3 (0.0-0.012); Nucleated Red Blood Cells Perc 0.0 % (0.0-0.2); Platelet Count Result 204 k/mm3 (150-375); Red Blood Count 5.27 M/mm3 (4.6-6.20); White Blood Count 15.2 K/mm3 (4.5-10.0)
--- OUTSIDE RECORDS SUMMARY | 2025-07-01 08:58 | XMS_ITS | Clinical Summary ---
Author Organization [facility] Address [address] [place] [address] Care Team Providers Care Kennel Operator Name Role Phone Wally Hunter MD Primary Care Provider [phone] Allergies No known active allergies Medications primidone [...] Encounters Date Type Department Care Team Description 06/08/2025 External Device Data STL ABSTRACTION Provider, Abstract 05/26/2025 External Device Data STL ABSTRACTION Provider, Abstract 05/25/2025 External Device Data STL ABSTRACTION Provider, Abstract 04/06/2025 External Device Data STL ABSTRACTION Provider, Abstract from Last 3 Months Family History Medical [...] on file Legal Sex Male 10:48 AM ECHO TECH Gender Identity Not on file Sexual Orientation Not on file Last Filed Vital Signs Vital Sign Reading Time Taken Comments Blood Pressure 142/75 01/07/2025 1:55 PM CDT Pulse 72 01/07/2025 1:53 PM CDT Temperature 36.4 C (97.6 F) 01/07/2025 1:53 PM CDT Respiratory Rate 15 01/07/2025 1:53 PM CDT Oxygen Saturation 96% 01/07/2025 1:53 PM CDT Inhaled Oxygen Concentration - - Weight 97.2 kg (214 lb 3.2 oz) 01/07/2025 1:53 P M CDT Height 170.2 cm (5' 7) 12/16/2024 1:57 PM ECHO TECH Body Mass Index 33.55 12/16/2024 1:57 PM ECHO TECH Plan of Treatment Upcoming Encounters Date Type Department Care Team (Late st Contact Info) Description 07/14/2025 1:15 PM CDT Office Visit [facility] Oncology and Hematology - [place] [address] [place] [address] Tommy Moreno MD [address] [facility] [address] [place] [phone] Health Maintenance Due Date Last Done Comments DTAP/TDAP/TD VACCINES (1 - Tdap) 1969 COLORECTAL SCREENING 1995 Colorectal Cancer Screening 1995 FIT-DNA Q 3 years 1995 FIT/FOBT Q 1 year 1995 Flex Sig/CT Colonography Q 5 years 1995 PNEUMOCOCCAL VACCINE 50+ YEARS (1 of 1 - PCV) 09/01/20 00 ZOSTER VACCINE (1 of 2) 2000 RSV VACCINE (60+ or ) (1 - Risk 60-74 years 1-dose series) 2010 INFLUENZA VACCINE (#1) 2025 Insurance Care Teams Kennel Operator Relationship Specialty Start Date End Date Wally Hunter MD [address] [place] [phone] PCP - General Internal Medicine 12/16/24
--- OUTSIDE RECORDS SUMMARY | 2025-07-01 08:59 | XMS_ITS | Patient Health Record ---
Author Organization [facility] Address [address] [place], [place] [address] Care Team Providers Care Aerospace Mechanic Name Role Phone MarianaLINDA dent Unavailable [phone] [address] Hunter Unavailable Unavailable Reason For Referral No Information Plan Of Treatment No Information Insurance Providers Payer Name Payer Address Payer Phone Subscriber Number Group Number Insured Name Patient Relationship to Insured Coverage Start Date Coverage End Date Medicare Part B [place] [address] [place] [address] [id number] RAHUL HERNANDEZ Self - patient is the insured [facility] [address] [address] [place], [place] [id number] [phone] [id number] RAHUL HERNANDEZ Self - patient is the insured
--- NOTE | 2025-07-01 09:08 | ECG_ITS ---
Test Date: 2025-07-01 09:21:32 Measurements Intervals [place] Rate: 89 P: 88 DE: 172 QRS: -52 QRSD: 142 T: 15 QT: 383 QTc: 467 Interpretive Statements SINUS RHYTHM RIGHT BUNDLE BRANCH BLOCK [120+ ms QRS DURATION, UPRIGHT V1, 40+ ms S IN I/aVL/V4/V5/V6] VOLTAGE CRITERIA FOR LVH [MEETS CRITERIA IN ONE OF: R(aVL), S(V1), R(V5), R(V5/V6)+S(V1)] POSSIBLE ANTERIOR MYOCARDIAL INFARCTION , PROBABLY OLD [30 ms Q WAVE IN V3/V4, OR R < 0.2 mV IN V4] No previous ECG available for comparison Electronically Signed On 07-01-2025 11:25:13 CDT by Roshan Dumont M.D.
--- NOTE | 2025-07-01 09:10 | ED.ABDPAIN ---
HPI - Abdominal Pain General Chief Complaint: Abdominal Pain <Krysten Alexander APRN - Last Filed: 07/01/25 11:10> Stated Complaint: abdominal pain, n/v <Krysten Alexander APRN - Last Filed: 07/01/25 11:10> Time Seen by Provider: 07/01/25 08:58 <Krysten Alexander APRN - Last Filed: 07/01/25 11:10> History of Present Illness HPI narrative: Pt is a 74-year-old male who presents to the ER with abdominal pain that started yesterday. He reports his symptoms have been accompanied by nausea, vomiting, and sweats. Patient denies any back pain, urinary symptoms, or lower extremity swelling. He endorses a history of significant blanco as a child, kidney stones, diabetes, and high blood pressure. Patient reports he has never had this experience before. He reports he ate ?half a chocolate pie for lunch yesterday so he thought his sugars were off but he does not believe it is related to his symptoms now. <Krysten Alexander [employer] - Last Filed: 07/01/25 11:10> Related Data Home Medications: Home Medications ?Medication ?Instructions ?Recorded ?Confirmed ?Last Taken ?Type allopurinol 300 mg tablet 300 mg PO DAILY 11/17/19 07/01/25 06/02/24 History aspirin 325 mg tablet 325 mg PO DAILY 11/17/19 07/01/25 06/30/25 History atorvastatin 80 mg tablet 80 mg PO DAILY 11/17/19 07/01/25 06/30/25 History finasteride 5 mg tablet 5 mg PO DAILY 11/17/19 07/01/25 06/30/25 History glimepiride 4 mg tablet 4 mg PO QAM 11/17/19 07/01/25 06/30/25 History latanoprost 0.005 % eye drops 1 drop ophthalmic (eye) DAILY 11/17/19 07/01/25 06/30/25 History nifedipine 60 mg tablet,extended 60 mg PO DAILY 11/17/19 07/01/25 06/30/25 History release 24 hr omeprazole 20 mg capsule,delayed 20 mg PO DAILY 11/17/19 07/01/25 06/30/25 History release terazosin 5 mg capsule 5 mg PO DAILY 11/17/19 07/01/25 06/30/25 History amlodipine 10 mg tablet 10 mg PO DAILY 07/01/25 07/01/25 06/30/25 History insulin degludec 200 unit/mL (3 40 unit subcut DAILY 07/01/25 07/01/25 06/30/25 History mL) subcutaneous pen (Tresiba FlexTouch U-200 insulin) <Krysten Alexander APRN - Last Filed: 07/01/25 11:10> Allergies/Adverse Reactions: Allergies Allergy/AdvReac Type Severity Reaction Status Date / Time No Known Allergies Allergy Verified 07/01/25 11:56 <Krysten Alexander APRN - Last Filed: 07/01/25 11:10> Review of Systems Review of Systems: All systems reviewed & are unremarkable except as noted in HPI and below <Krysten Alexander APRN - Last Filed: 07/01/25 11:10> [facility] Past Medical History Medical History: Medical History (Updated 07/01/25 @ 18:55 by Laquita Tsang III, DO) BPH (benign prostatic hyperplasia) COVID Hypertension Osteoarthritis of lumbar spine Stroke Diabetes Last A1C= 8 Gout <Krysten Alexander APRN - Last Filed: 07/01/25 11:10> Surgical History Surgical History: Surgical History Kidney stones Removal History of knee surgery Right Total knee replacement, with subsequent patellectomy. <Krysten Alexander APRN - Last Filed: 07/01/25 11:10> Family History Family History: Family History Father Diabetes mellitus Hypertension Cerebrovascular accident <Krysten Alexander APRN - Last Filed: 07/01/25 11:10> Social History Social History: Social History Smoking status: Never smoker Alcohol intake: current Drinks per week: 5 Alcohol use details: occasional Substance use: never Substance use type: does not use Lack of Transportation: No Lack of Food: Never True Current Housing: I Have Housing Concerned About Future Housing: No Difficulty Paying Gas/Electric Bills: No Difficulty Paying for Meds: No Currently Unemployed: No Education: High School Diploma/GED Difficulty w/ Childcare or Family Care: No Living arrangements: with family Additional living arrangements comments: Alice Kang Occupation/Education: retired Spiritual care concerns: No <Krysten Alexander, [employer] - Last Filed: 07/01/25 11:10> Exam Narrative: GENERAL: Well appearing, well-nourished, non-toxic, in no acute distress. HEAD: Normocephalic, atraumatic. NECK: Supple. No adenopathy, no masses. RESPIRATORY: Airway patent, respirations nonlabored. Clear to auscultation bilaterally, no rales, rhonchi, wheezing. CARDIOVASCULAR: Regular rate and rhythm without murmurs, rubs, or gallops. Peripheral pulses 2+ and equal bilaterally. ABDOMINAL: Soft, RUQ tenderness, distended, no hepatosplenomegaly. Normoactive BS. MUSCULOSKELETAL: Moves all extremities. Strength/ROM intact without gross deformities. SKIN: Warm, dry, normal color. No rashes. NEURO: A&O X3. Speech clear. Cranial nerves II-XII intact. No ataxic movements. PSYCHIATRIC: Appropriate mood and affect. Normal interaction. <Krysten Alexander, [employer] - Last Filed: 07/01/25 11:10> Course SCHOOL PROGRAM DIRECTOR/PA Physician Supervision discussed with SCHOOL PROGRAM DIRECTOR and agree with assessment and plan <Laquita Tsang III, DO - Last Filed: 07/01/25 18:55> Vital Signs Vital signs: Vital Signs Temperature 97.6 F 07/01/25 08:38 Pulse Rate 90 07/01/25 08:38 Respiratory Rate 20 07/01/25 08:38 Blood Pressure 180/75 H 07/01/25 08:38 Pulse Oximetry 95 07/01/25 08:38 Oxygen Delivery Room Air 07/01/25 08:38 Temperature 97.6 F 07/01/25 08:38 Pulse Rate 92 07/01/25 11:30 Respiratory Rate 22 H 07/01/25 11:30 Blood Pressure 168/81 H 07/01/25 11:30 Pulse Oximetry 94 07/01/25 11:30 Oxygen Delivery Room Air 07/01/25 12:00 <Krysten Alexander, [employer] - Last Filed: 07/01/25 11:10> Vital Signs Temperature 97.6 F 07/01/25 08:38 Pulse Rate 90 07/01/25 08:38 Respiratory Rate 20 07/01/25 08:38 Blood Pressure 180/75 H 07/01/25 08:38 Pulse Oximetry 95 07/01/25 08:38 Oxygen Delivery Room Air 07/01/25 08:38 Temperature 97.6 F 07/01/25 08:38 Pulse Rate 92 07/01/25 11:30 Respiratory Rate 22 H 07/01/25 11:30 Blood Pressure 168/81 H 07/01/25 11:30 Pulse Oximetry 94 07/01/25 11:30 Oxygen Delivery Room Air 07/01/25 12:00 <Laquita Tsang III, DO - Last Filed: 07/01/25 18:55> MDM - Abdominal Pain MDM Narrative Medical decision making narrative: Pt is a 74-year-old male who presents to the ER with abdominal pain that started yesterday. He reports his symptoms have been accompanied by nausea, vomiting, and sweats. Patient denies any back pain, urinary symptoms, or lower extremity swelling. He endorses a history of significant blanco as a child, kidney stones, diabetes, and high blood pressure. Patient reports he has never had this experience before. He reports he ate ?half a chocolate pie for lunch yesterday so he thought his sugars were off but he does not believe it is related to his symptoms now. Labs Ordered: CBC, CMP, lipase, UA Imaging Ordered: CT abdomen pelvis Medications Ordered: 1 L normal saline IV bolus x 2, morphine 4 mg IV, Dilaudid 1 mg IV, Zofran 4 mg IV Results: Patient's CBC indicates a white blood cell count of 15.2. His chemistry indicated carbon dioxide of 20, anion gap of 14, BUN of 27, glucose of 235, ALT of 57. Patient's lipase is 4017. Patient's CT scan indicates Mild atelectasis in bilateral lower lobes. Heart size is normal. Atherosclerotic coronary artery calcific lesion. Aortic valve calcific lesion. No pericardial or pleural effusion. Liver, gallbladder, spleen and bilateral adrenal glands are normal. Tiny calcified gallstones the dependent aspect of the normal-appearing gallbladder. No intra-axial hepatic biliary ductal dilation or evident choledocholithiasis. There is inflammatory stranding centered around the head of the pancreas extending into the root of the mesentery and bilateral anterior pararenal spaces consistent with acute interstitial pancreatitis. There are a few small nonloculated acute peripancreatic fluid collections in the left upper quadrant. No organized abscess or acute necrotic collections. There are bilateral renal cysts, the largest on the left measuring 5.0 cm. Bowels including the appendix are normal. No pathologically enlarged abdominal or pelvic lymphadenopathy. Mild thoracic and lumbar spondylosis. Diagnosis: Acute pancreatitis, cholelithiasis Results of imaging and lab work shared with patient and their family. It was advised patient be admitted to the hospital for further evaluation and treatment. Patient and their family verbalized understanding and are in agreement with plan. 1030- Placed call to hospitalist to discuss admission. 1100- Spoke with hospitalist, Dr. Jaeger, who was in agreement with plan for admission. Pt will be admitted to the med/surg floor. <Krysten Alexander APRN - Last Filed: 07/01/25 11:10> Differential Diagnosis Differential diagnosis: Likely acute appendicitis, calculus of kidney, diverticulitis, gastroenteritis and pancreatitis <Krysten Alexander APRN - Last Filed: 07/01/25 11:10> Lab Data Result diagrams: 07/01/25 08:48 07/01/25 08:48 <Krysten Alexander APRN - Last Filed: 07/01/25 11:10> Labs: Lab Results 07/01/25 07/01/25 07/01/25 Range/Units 08:48 09:24 11:02 WBC 15.2 H (4.5-10.0) K/mm3 RBC 5.27 (4.6-6.20) M/mm3 Hgb 16.1 (14.0-18.0) g/dL Hct 48.9 (42.0-52.0) % MCV 92.8 (80-100) fl MCH 30.6 (26-34) pg MCHC 32.9 (32-36) g/dl RDW 13.2 (11.5-14.5) % Plt Count 204 (150-375) k/mm3 MPV 11.0 H (7.4-10.4) fl Immature Gran % (Auto) 0.3 (0-0.5) % Neut % (Auto) 92.1 H (45.5-73.1) % Lymph % (Auto) 3.3 L (18.3-44.2) % [place] % (Auto) 4.2 (2.6-8.5) % Eos % (Auto) 0.0 (0-4.4) % Baso % (Auto) 0.1 L (0.2-1.2) % Lymph # (Auto) 0.50 L (0.9-3.2) K/mm3 [place] # (Auto) 0.6 (0.1-0.6) K/mm3 Eos # (Auto) 0.0 (0-0.3) K/mm3 Baso # (Auto) 0.0 (0.0-0.1) K/mm3 Abs Immat Gran (auto) 0.04 H (0.00-0.031) K/mm3 Absolute Neuts (auto) 14.0 H (1.3-6.7) K/mm3 Absolute Nucleated RBC 0.000 (0.0-0.012) K/mm3 Nucleated RBC % 0.0 (0.0-0.2) % Sodium 139 (137-145) mmol/L Potassium 4.4 (3.4-5.0) mmol/L Chloride 105 (98-107) mmol/L Carbon Dioxide 20 L (22-30) mmol/L Anion Gap 14 H (4-12) mmol/L BUN 27 H D (9-20) mg/dL Creatinine 0.98 (0.7-1.3) mg/dL Estim Creat Clear Calc 66 ml/min Estimated GFR > 60 (59 - ) Glucose 235 H (65-110) mg/dL POC Capillary Glucose 269 H (65-105) mg/dl Calcium 8.7 (8.4-10.2) mg/dL Total Bilirubin 1.1 (0.2-1.3) mg/dL AST 56 (17-59) U/L ALT 57 H (6-50) U/L Alkaline Phosphatase 68 (38-126) U/L Total Protein 8.0 (6.3-8.2) g/dL Albumin 4.6 (3.5-5.1) g/dL Lipase 4017 H (23-300) U/L Urine Color Yellow (Yellow) Urine Appearance Clear (Clear) Urine pH 5.0 (5.0-9.0) Ur Specific [place] > 1.045 H (1.001-1.035) Urine Protein Trace (Negative) mg/dL Urine Glucose (UA) 3+ H (Negative) mg/dL Urine Ketones 2+ H (Negative) mg/dL Ur Blood (Man) Trace (Negative) Urine Nitrate Negative (Negative) Urine Bilirubin Negative (Negative) Urine Urobilinogen 0.2 (<2.0) mg/dL Leukocyte Esterase Rfl Negative (Negative) RAEANN/UL Urine RBC 0-2 (0-2) /hpf Urine WBC 0-5 (0-3) /hpf Ur Squamous Epith Cells None seen (Few) /hpf Urine Bacteria None seen /hpf Urine Casts 0-2 <Krysten Alexander, [employer] - Last Filed: 07/01/25 11:10> Lab Results 07/01/25 07/01/25 07/01/25 Range/Units 08:48 09:24 11:02 WBC 15.2 H (4.5-10.0) K/mm3 RBC 5.27 (4.6-6.20) M/mm3 Hgb 16.1 (14.0-18.0) g/dL Hct 48.9 (42.0-52.0) % MCV 92.8 (80-100) fl MCH 30.6 (26-34) pg MCHC 32.9 (32-36) g/dl RDW 13.2 (11.5-14.5) % Plt Count 204 (150-375) k/mm3 MPV 11.0 H (7.4-10.4) fl Immature Gran % (Auto) 0.3 (0-0.5) % Neut % (Auto) 92.1 H (45.5-73.1) % Lymph % (Auto) 3.3 L (18.3-44.2) % [place] % (Auto) 4.2 (2.6-8.5) % Eos % (Auto) 0.0 (0-4.4) % Baso % (Auto) 0.1 L (0.2-1.2) % Lymph # (Auto) 0.50 L (0.9-3.2) K/mm3 [place] # (Auto) 0.6 (0.1-0.6) K/mm3 Eos # (Auto) 0.0 (0-0.3) K/mm3 Baso # (Auto) 0.0 (0.0-0.1) K/mm3 Abs Immat Gran (auto) 0.04 H (0.00-0.031) K/mm3 Absolute Neuts (auto) 14.0 H (1.3-6.7) K/mm3 Absolute Nucleated RBC 0.000 (0.0-0.012) K/mm3 Nucleated RBC % 0.0 (0.0-0.2) % Sodium 139 (137-145) mmol/L Potassium 4.4 (3.4-5.0) mmol/L Chloride 105 (98-107) mmol/L Carbon Dioxide 20 L (22-30) mmol/L Anion Gap 14 H (4-12) mmol/L BUN 27 H D (9-20) mg/dL Creatinine 0.98 (0.7-1.3) mg/dL Estim Creat Clear Calc 66 ml/min Estimated GFR > 60 (59 - ) Glucose 235 H (65-110) mg/dL POC Capillary Glucose 269 H (65-105) mg/dl Calcium 8.7 (8.4-10.2) mg/dL Total Bilirubin 1.1 (0.2-1.3) mg/dL AST 56 (17-59) U/L ALT 57 H (6-50) U/L Alkaline Phosphatase 68 (38-126) U/L Total Protein 8.0 (6.3-8.2) g/dL Albumin 4.6 (3.5-5.1) g/dL Lipase 4017 H (23-300) U/L Urine Color Yellow (Yellow) Urine Appearance Clear (Clear) Urine pH 5.0 (5.0-9.0) Ur Specific [place] > 1.045 H (1.001-1.035) Urine Protein Trace (Negative) mg/dL Urine Glucose (UA) 3+ H (Negative) mg/dL Urine Ketones 2+ H (Negative) mg/dL Ur Blood (Man) Trace (Negative) Urine Nitrate Negative (Negative) Urine Bilirubin Negative (Negative) Urine Urobilinogen 0.2 (<2.0) mg/dL Leukocyte Esterase Rfl Negative (Negative) RAEANN/UL Urine RBC 0-2 (0-2) /hpf Urine WBC 0-5 (0-3) /hpf Ur Squamous Epith Cells None seen (Few) /hpf Urine Bacteria None seen /hpf Urine Casts 0-2 <Laquita Tsang III, DO - Last Filed: 07/01/25 18:55> Imaging Data Radiologist's impression: ITS Impressions Abdomen/Pelvis CT 07/01/25 09:50 IMPRESSION: 1. Acute interstitial pancreatitis. Correlate with lipase levels. 2. Cholelithiasis. <Krysten Alexander APRN - Last Filed: 07/01/25 11:10> ITS Impressions Abdomen/Pelvis CT 07/01/25 09:50 IMPRESSION: 1. Acute interstitial pancreatitis. Correlate with lipase levels. 2. Cholelithiasis. <Laquita Tsang III, DO - Last Filed: 07/01/25 18:55> Discharge Plan Discharge Clinical Impression: Pancreatitis <Krysten Alexander APRN - Last Filed: 07/01/25 11:10> Patient Disposition: Still a Patient <Krysten Alexander APRN - Last Filed: 07/01/25 11:10> Condition: Stable <Krysten Alexander APRN - Last Filed: 07/01/25 11:10>
[2025-07-01 09:13] LABS: Alanine Aminotransferase 57 U/L (6-50); Albumin Level 4.6 g/dL (3.5-5.1); Alkaline Phosphatase 68 U/L (38-126); Anion Gap 14 mmol/L (4-12); Aspartate Amino Transferase 56 U/L (17-59); Bilirubin,Total 1.1 mg/dL (0.2-1.3); Blood Urea Nitrogen 27 mg/dL (9-20); Calcium 8.7 mg/dL (8.4-10.2); Carbon Dioxide 20 mmol/L (22-30); Chloride 105 mmol/L (98-107); Estimated CRCL calculation 66 ml/min; Estimated Glomerular Filt Rate > 60; Glucose 235 mg/dL (65-110); Potassium 4.4 mmol/L (3.4-5.0); Sodium 139 mmol/L (137-145); Total Protein 8.0 g/dL (6.3-8.2)
[2025-07-01] MEDS: MORPHINE SULFATE (*CRX) 4 MG/ML INJ IV PUSH (09:23)
[2025-07-01] MEDS: ONDANSETRON INJ 4 MG/2 ML VIAL IV PUSH (09:24)
--- OUTSIDE RECORDS SUMMARY | 2025-07-01 09:39 | XMS_ITS | Clinical Summary ---
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 Plan of Treatment Upcoming Encounters Date Type Department Care Team (Late st Contact Info) Description 07/14/2025 1:15 PM CDT Office Visit [facility] Oncology and Hematology - [address] [place] [phone] Tommy Moreno MD [address] [facility] [address] [place] [phone] Health Maintenance Due Date Last Done Comments [...] INFLUENZA VACCINE (#1) 2025 Insurance Care Teams Cloth Picker Relationship Specialty Start Date End Date Wally Hunter MD [address] [place] [phone] PCP - General Internal Medicine 12/16/24
[2025-07-01 09:42] LABS: Lipase 4017 U/L (23-300)
[2025-07-01] MEDS: SODIUM CHLORIDE 0.9% IV 1,000 ML 999 ML IV CONT ×2 (09:42→10:32)
[2025-07-01] MEDS: HYDROmorphone HCL INJ (*CRX) 1 MG/ML SYR IV PUSH (10:26)
[2025-07-01 11:18] LABS: Add Urine Microscopic? YES; Appearance Urine Clear (Clear); Glucose Urine UA 3+ mg/dL (Negative); Leukocyte Esterase Ur Negative LEU/UL (Negative); Nitrate Urine Negative (Negative); Non Pathogenic Casts 0-2; Specific Grav Ur > 1.045 (1.001-1.035)
[2025-07-01 11:30] VITALS: BP 168/81; PULSE 92; RESP 22; O2SAT 94
--- NOTE | 2025-07-01 11:56 | ADMGEN ---
This patient, Neo Abraham Jr., was admitted to [facility] Surg Room 330-01. Patient/family oriented to hospital policies and general routines including ID bracelet, bed and alarms, visiting hours, pain management, procedures, bathroom and other care routines, personal items, smoking policy, room service/diet, and visiting hours. Information on how to activate the Rapid Response Team has been discussed. Patient/Family are encouraged to report perceived risks to care and to ask questions if they do not understand what they are told or what they should do.
[2025-07-01 12:04] VITALS: BMI 34.0
[2025-07-01] MEDS: SODIUM CHLORIDE 0.9% IV 1,000 ML 125 ML IV CONT (12:22)
--- NOTE | 2025-07-01 13:34 | P.HP_ITS ---
H&P: HPI History of Present Illness Date/Time: 07/01/25 13:34 Chief Complaint: Acute abdominal pain Narrative: 74-year-old male with history of kidney stones, diabetes and hypertension presents the hospital with acute abdominal pain. He also complains of nausea vomiting and sweating. Patient states that he will drink beers on Fridays. Patient states on Saturday he half of a chocolate pie after that he had acute abdominal pain. He has complained rigors and chills. He states that he has right upper quadrant pain and lower abdominal pain. Patient states he has never had pancreatitis before. Lab work in the ED shows leukocytosis at 15.2, carbon dioxide 28, anion gap of 14, BUN of 27, glucose of 235, AST of 57,UA negative for infection, CT abdomen and pelvis shows acute interstitial pancreatitis and cholelithiasis. Patient has been given and aggressive fluid hydration and pain medications. Review of Systems Review of Systems: 12 systems were reviewed and are negativ e except for as per HPI. [facility] Past Medical History Medical History (Updated 07/01/25 @ 18:55 by Laquita Tsang III, DO) BPH (benign prostatic hyperplasia) COVID Hypertension Osteoarthritis of lumbar spine Stroke Diabetes Last A1C= 8 Gout Surgical History Surgical History Kidney stones Removal History of knee surgery Right Total knee replacement, with subsequent patellectomy. Family History Family History Father Diabetes mellitus Hypertension Cerebrovascular accident Social History Social History Smoking status: Never smoker Alcohol intake: current Drinks per week: 5 Alcohol use details: occasional Substance use: never Substance use type: does not use Lack of Transportation: No Lack of Food: Never True Current Housing: I Have Housing Concerned About Future Housing: No Difficulty Paying Gas/Electric Bills: No Difficulty Paying for Meds: No Currently Unemployed: No Education: High School Diploma/GED Difficulty w/ Childcare or Family Care: No Living arrangements: with family Additional living arrangements comments: Alice Kang Occupation/Education: retired Spiritual care concerns: No Meds Home Medications and Allergies Home Medications ?Medication ?Instructions ?Recorded ?Confirmed ?Type allopurinol 300 mg tablet 300 mg PO DAILY 11/17/1909/14 History aspirin 325 mg tablet 325 mg PO DAILY 11/17/1909/14 History atorvastatin 80 mg tablet 80 mg PO DAILY 11/17/1906/21 History finasteride 5 mg tablet 5 mg PO DAILY 11/17/1907/01 History glimepiride 4 mg tablet 4 mg PO QAM 11/17/19 5 History latanoprost 0.005 % eye drops 1 drop ophthalmic (eye) DAILY 11/17/19 07/01/25 History nifedipine 60 mg tablet,extended 60 mg PO DAILY 07/01/25 History release 24 hr omeprazole 20 mg capsule,delayed 20 mg PO DAILY 07/01/25 History release terazosin 5 mg capsule 5 mg PO DAILY 11/17/1907/01 History tramadol 50 mg tablet (Ultram) 50 mg PO HS #20 tabs 07/01/25 Rx amlodipine 10 mg tablet 10 mg PO DAILY 07/01/2506/21 History insulin degludec 200 unit/mL (3 40 unit subcut DAILY 0 07/01/25 07/01/25 History mL) subcutaneous pen (Tresiba FlexTouch U-200 insulin) Allergies Allergy/AdvReac Type Severity Reaction Status Date / Time No Known Allergies Allergy Verified 07/01/25 11:56 Vital Signs Vital Signs - 24 hr 07/01/25 08:38 07/01/25 11:30 Temperature 97.6 F Pulse Rate 90 92 Respiratory Rate 20 22 H Blood Pressure 180/75 H 168/81 H Pulse Oximetry 95 94 Oxygen Delivery Room Air Exam Narrative: General: well appearing, appears stated age. HEENT: normocephalic, atraumatic. Mucous membranes moist. EOMI, PERRLA, bilateral sclera anicteric, no conjunctival injection. Neck supple without JVD, lymphadenopathy, or bruit. Respiratory: clear to ascultation bilaterally. No rales/rhonic/wheezes. Cardiovascular: Regular rate and rhythm, normal S1-S2 upon ascultation. No murmurs, rubs, or clicks. PMI is nondisplaced, capillary refill less than 3 second. Abdomen: Soft, round, no pulsatile masses, No rebound, no guarding. No CVA ten derness, no hepatosplenomegaly. Bowel sounds present to all four quadrants. No high pitch or tinkling sounds, resonant to percussion. Acute pain right upper quadrant and lower abdominal on palpation. Unable to tele patient has positive Hopkins sign. Extremities: No cyanosis, clubbing, or edema present. Pulses are palpable 2/2. Active ROM to all four extremities. Neuro: Alert and orientated x 4. PERRLA. Cranial nerves 2-12 intact without focal deficit. Skin: Warm, dry, and intact, without rash, erythema, or lesion. Psych: pleasant, cooperative, normal speech, normal affect, no hallucinations, no dysarthia H&P: Results Labs Labs: Short CBC 07/01/25 Range/Units 08:48 WBC 15.2 H (4.5-10.0) K/mm3 Hgb 16.1 (14.0-18.0) g/dL Hct 48.9 (42.0-52.0) % Plt Count 204 (150-375) k/mm3 BMP 07/01/25 08:48 Sodium 139 Potassium 4.4 Chloride 105 Carbon Dioxide 20 L BUN 27 H D Creatinine 0.98 Glucose 235 H Calcium 8.7 Liver Function 07/01/25 Range/Units 08:48 Total Bilirubin 1.1 (0.2-1.3) mg/dL AST 56 (17-59) U/L ALT 57 H (6-50) U/L Alkaline Phosphatase 68 (38-126) U/L Albumin 4.6 (3.5-5.1) g/dL Urine 07/01/25 Range/Units 11:02 Urine Color Yellow (Yellow) Urine Appearance Clear (Clear) Urine pH 5.0 (5.0-9.0) Ur Specific [place] > 1.045 H (1.001-1.035) Urine Protein Trace (Negative) mg/dL Urine Glucose (UA) 3+ H (Negative) mg/dL Assessment and Plan Assessment and plan (1) Pancreatitis: Code(s): K85.90 - Acute pancreatitis without necrosis or infection, unspecified Status: Acute Assessment and Plan: NPO okay for ice chips and water IV pain management LR at 200 Lipase in morning (2) Cholelithiasis: Code(s): K80.20 - Calculus of gallbladder without cholecystitis without obstruction Status: Acute Assessment and Plan: Patient with acute right upper quadrant pain on palpation and complaining of rigors, tachycardic and tachypneic Surgery consult IV [employer] VTE (3) Diabetes: Code(s): E11.9 - Type 2 diabetes mellitus without complications Status: Acute Assessment and Plan: NPO Accu-Cheks q.6 SSI and Lantus 15 units, patient's home dose is 40 units of Tresiba (4) Hypertension: Code(s): I10 - Essential (primary) hypertension Status: Acute Assessment and Plan: Continue blood pressure medications (5) BPH (benign prostatic hyperplasia): Code(s): N40.0 - Benign prostatic hyperplasia without lower urinary tract symptoms Status: Acute Assessment and Plan: Continue Proscar Quality VTE Prophylaxis VTE prophylaxis: mechanical ordered Hospitalist MIPS Advance Care Plan I have confirmed that the patient's Advanced Care Plan is present, code status is documented, or surrogate decision maker is listed in patient medical record.: Yes Medication Reconciliation I have utilized all available resources to obtain, update and review the patients current medications (includes all prescriptions, OTC, herbals, cannabis , and nutritional supplements).: Yes
[2025-07-01 14:00] VITALS: BP 150/80; PULSE 93; RESP 20; TEMP 36.8; O2SAT 94
[2025-07-01] MEDS: KETOROLAC 15 MG/ML VIAL (*BKC) IV PUSH ×2 (14:25→20:27)
[2025-07-01] MEDS: ATORVASTATIN 40 MG TABLET 80 MG PO (14:27)
[2025-07-01] MEDS: PANTOPRAZOLE 40 MG TABLET PO (14:27)
[2025-07-01] MEDS: FINASTERIDE 5 MG TABLET PO (14:27)
[2025-07-01] MEDS: TERAZOSIN HCL 5 MG CAPSULE PO (14:27)
[2025-07-01] MEDS: ASPIRIN 325 MG TABLET PO (14:31)
[2025-07-01] MEDS: LACTATED RINGERS 1,000 ML 200 ML IV CONT ×2 (14:32→20:31)
[2025-07-01] MEDS: HYDROmorphone HCL INJ (*CRX) 1 MG/ML SYR 0.5 MG IV PUSH ×3 (14:32→23:42)
[2025-07-01] MEDS: DOCUSATE SODIUM 100 MG CAPSULE PO (17:13)
[2025-07-01 20:00] VITALS: O2SAT 90
[2025-07-01] MEDS: LATANOPROST 0.005% OP SOLN 2.5 ML BTL 1 DROP EACH EYE (20:44)
[2025-07-01] MEDS: INSULIN GLARGINE (*BKC) 100 UNITS/ML 15 UNITS SUB-Q (21:37)
[2025-07-01 22:00] VITALS: BP 148/59; PULSE 101; RESP 24; TEMP 37.6; O2SAT 90
--- NOTE | 2025-07-01 23:12 | PC.NURSE ---
On 07/01/25, ROBERT Fagan orientee, provided care and completed [employer] documentation on this patient. I have reviewed ROBERT Fagan's documentation and agree with the findings.
[2025-07-02] MEDS: PIPERACILLIN/TAZOBACTAM SOD 3.375 GM in SODIUM CHLORIDE 0.9% IV 50 ML 100 ML IVPB ×4 (00:48→17:38)
[2025-07-02] MEDS: KETOROLAC 15 MG/ML VIAL (*BKC) IV PUSH ×4 (02:12→20:59)
[2025-07-02] MEDS: LACTATED RINGERS 1,000 ML 200 ML IV CONT (02:14)
[2025-07-02] MEDS: HYDROmorphone HCL INJ (*CRX) 1 MG/ML SYR 0.5 MG IV PUSH (05:41)
[2025-07-02 06:00] VITALS: BP 152/66; PULSE 94; RESP 16; TEMP 37.3; O2SAT 94
[2025-07-02 06:28] LABS: Hematocrit 43.1 % (42.0-52.0); Hemoglobin 13.8 g/dL (14.0-18.0); Immature Granulocyte Percent A 0.6 % (0-0.5); Lymphocytes Absolute Auto 0.71 K/mm3 (0.9-3.2); Mean Corpuscular HGB Conc 32.0 g/dl (32-36); Mean Corpuscular Hemoglobin 30.5 pg (26-34); Mean Corpuscular Volume 95.4 fl (80-100); Nucleated Red Blood Cells Absolute Auto 0.000 K/mm3 (0.0-0.012); Nucleated Red Blood Cells Perc 0.0 % (0.0-0.2); Platelet Count Result 163 k/mm3 (150-375); Red Blood Count 4.52 M/mm3 (4.6-6.20); White Blood Count 17.4 K/mm3 (4.5-10.0)
[2025-07-02 06:52] LABS: Anion Gap 10 mmol/L (4-12); Blood Urea Nitrogen 23 mg/dL (9-20); Calcium 7.7 mg/dL (8.4-10.2); Carbon Dioxide 22 mmol/L (22-30); Chloride 105 mmol/L (98-107); Estimated CRCL calculation 70 ml/min; Estimated Glomerular Filt Rate > 60; Glucose 166 mg/dL (65-110); Lipase 1588 U/L (23-300); Potassium 3.7 mmol/L (3.4-5.0); Sodium 137 mmol/L (137-145)
--- NOTE | 2025-07-02 08:26 | PC.NURSE ---
Patient states he is miserable and bloated RN called MD. MD ordered abd xray and states he is coming to see patient soon.
[2025-07-02] MEDS: ASPIRIN 325 MG TABLET PO (08:33)
[2025-07-02] MEDS: ATORVASTATIN 40 MG TABLET 80 MG PO (08:33)
[2025-07-02] MEDS: DOCUSATE SODIUM 100 MG CAPSULE PO ×2 (08:34→17:38)
[2025-07-02] MEDS: FINASTERIDE 5 MG TABLET PO (08:34)
[2025-07-02] MEDS: TERAZOSIN HCL 5 MG CAPSULE PO (08:34)
[2025-07-02] MEDS: PANTOPRAZOLE 40 MG TABLET PO (08:34)
[2025-07-02 08:42] VITALS: PULSE 96; RESP 18; O2SAT 91
[2025-07-02 08:45] VITALS: BP 183/64
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
[2025-07-02] MEDS: HYDROmorphone HCL INJ (*CRX) 1 MG/ML SYR IV PUSH ×4 (09:22→21:09)
--- NOTE | 2025-07-02 11:42 | P.PNIM_ITS ---
Progress Note: A&P Assessment and Plan (1) Pancreatitis: Code(s): K85.90 - Acute pancreatitis without necrosis or infection, unspecified Status: Acute Assessment and Plan: NPO r IV pain management LR at 200 Lipase in morning GI consult (2) Cholelithiasis: Code(s): K80.20 - Calculus of gallbladder without cholecystitis without obstruction Status: Acute Assessment and Plan: Patient with acute right upper quadrant pain on palpation and complaining of ri gors, tachycardic and tachypneic Surgery consult IV Zosyn Holding VTE (3) Diabetes: Code(s): E11.9 - Type 2 diabetes mellitus without complications Status: Acute Assessment and Plan: NPO Accu-Cheks q.6 SSI and Lantus 15 units, patient's home dose is 40 units of Tresiba (4) Hypertension: Code(s): I10 - Essential (primary) hypertension Status: Acute Assessment and Plan: Continue blood pressure medications (5) BPH (benign prostatic hyperplasia): Code(s): N40.0 - Benign prostatic hyperplasia without lower urinary tract symptoms Status: Acute Assessment and Plan: Continue Proscar Subjective Date/time seen: 07/02/25 11:42 Interval history: Patient was seen during the morning rounds today. Still have mild abdominal pain. No shortness breath or chest pain No nausea or vomiting. Review of Systems Review of Systems: 12 systems were reviewed and are negativ e except for as per HPI. Exam Narrative: General: well appearing, appears stated age. HEENT: normocephalic, atraumatic. Mucous membranes moist. EOMI, PERRLA, bilateral sclera anicteric, no conjunctival injection. Neck supple without JVD, lymphadenopathy, or bruit. Respiratory: clear to ascultation bilaterally. No rales/rhonic/wheezes. Cardiovascular: Regular rate and rhythm, normal S1-S2 upon ascultation. No murmurs, rubs, or clicks. PMI is nondisplaced, capillary refill less than 3 second. Abdomen: Soft, round, no pulsatile masses, No rebound, no guarding. No CVA tenderness, no hepatosplenomegaly. Bowel sounds present to all four quadrants. No high pitch or tinkling sounds, resonant to percussion. Mild pain right upper quadrant and lower abdominal on palpation. Unable to tele patient has positive Hopkins sign. Extremities: No cyanosis, clubbing, or edema present. Pulses are palpable 2/2. Active ROM to all four extremities. Neuro: Alert and orientated x 4. PERRLA. Cranial nerves 2-12 intact without focal deficit. Skin: Warm, dry, and intact, without rash, erythema, or lesion. Psych: pleasant, cooperative, normal speech, normal affect, no hallucinations, no dysarthia Objective Data Vital Signs Vital Signs: Vital Signs - 24 hr 07/01/25 12:00 07/01/25 14:00 07/01/25 20:00 Temperature 36.8 C Pulse Rate 93 Respiratory Rate 20 Blood Pressure 150/80 H Pulse Oximetry 94 90 Oxygen Delivery Room Air Room Air 07/01/25 22:00 07/02/25 06:00 07/02/25 08:42 Temperature 37.6 C H 37.3 C Pulse Rate 101 H 94 96 Respiratory Rate 24 H 16 18 Blood Pressure 148/59 H 152/66 H Pulse Oximetry 90 94 91 Oxygen Delivery Room Air 07/02/25 08:45 Temperature Pulse Rate Respiratory Rate Blood Pressure 183/64 H Pulse Oximetry Oxygen Delivery Intake/Output Intake/Output: Intake & Output 06/29/25 06/30/25 07/01/25 07/02/25 23:59 23:59 23:59 23:59 Intake Total 3000 1510 Balance 3000 1510 Meds/Results Medications: Active Medications Generic Name Dose Route Start Last Admin Trade Name Freq PRN Reason Stop Dose Admin Allopurinol 300 mg 07/01/25 13:50 07/02/25 08:33 Allopurinol 300 Mg Tablet PO 300 mg DAILY NOBLE Administration Amlodipine Besylate 10 mg 07/01/25 13:50 07/02/25 08:34 Amlodipine Besylate 10 Mg Tablet PO 10 mg DAILY NOBLE Administration Aspirin 325 mg 07/01/25 13:50 07/02/25 08:33 Aspirin 325 Mg Tablet PO 325 mg DAILY NOBLE Administration Atorvastatin Calcium 10 mg 07/03/25 18:00 Atorvastatin 10 Mg Tablet PO QPM NOBLE Dextrose 12.5 gm 07/01/25 13:39 Dextrose 50% 25 Gm/50 Ml Syringe IV PUSH PRN PRN Hypoglycemia Protocol Docusate Sodium 100 mg 07/01/25 17:00 07/02/25 08:34 Docusate Sodium 100 Mg Capsule PO 100 mg BID NOBLE Administration Empagliflozin 25 mg 07/03/25 09:00 Empagliflozin 25 Mg Tablet BY MOUTH DAILY NOBLE Glucagon 1 mg 07/01/25 13:39 Glucagon For Inj 1 Mg Vial IM PRN PRN Hypoglycemia Protocol Glucose 15 gm 07/01/25 13:39 Glucose Oral Gel 15 Gm Of Glucse In 37.5 Gm Tube PO PRN PRN Hypoglycemia Protocol Hydromorphone HCl 0.5 mg 07/01/25 11:05 07/02/25 05:41 Hydromorphone Hcl Inj (*Crx) 1 Mg/Ml Syr IV PUSH 0.5 mg Q4H PRN Administration Pain Rated 7-10 Hydromorphone HCl 1 mg 07/02/25 08:59 07/02/25 09:22 Hydromorphone Hcl Inj (*Crx) 1 Mg/Ml Syr IV PUSH 1 mg Q4H PRN Administration Pain Rated 7-10 Dextrose 1,000 mls @ 100 mls/hr 07/01/25 13:39 Dextrose 5% 1,000 Ml IVPB PRN PRN Hypoglycemia Protocol Piperacillin Sod/Tazobactam 50 mls @ 100 mls/hr 07/02/25 00:00 07/02/25 05:41 Sod 3.375 gm/ Sodium Chloride IVPB 100 mls/hr Q6HR NOBLE Administration Insulin Aspart 4 - 8 units 07/01/25 18:00 07/02/25 06:50 Insulin Aspart (*Bkc) 100 Units/Ml SUB-Q Not Given Q6HR [facility] Protocol Insulin Glargine 15 units 07/01/25 21:00 07/01/25 21:37 Insulin Glargine (*Bkc) 100 Units/Ml 0.15 units/kg (15 units) 15 units SUB-Q Administration HS [facility] Ketorolac Tromethamine 15 mg 07/01/25 14:00 07/02/25 08:34 Ketorolac 15 Mg/Ml Vial (*Bkc) IV PUSH 15 mg Q6H NOBLE Administration Latanoprost 1 drop 07/01/25 21:00 07/01/25 20:44 Latanoprost 0.005% Op Soln 2.5 Ml Btl EACH EYE 1 drop HS NOBLE Administration Lisinopril 20 mg 07/03/25 09:00 Lisinopril 20 Mg Tablet PO QAM NOBLE Ondansetron HCl 4 mg 07/01/25 11:05 Ondansetron Inj 4 Mg/2 Ml Vial IV PUSH Q4H PRN Nausea Pantoprazole Sodium 40 mg 07/01/25 13:50 07/02/25 08:34 Pantoprazole 40 Mg Tablet PO 08/01/25 13:49 40 mg DAILY NOBLE Administration Polyethylene Glycol 17 gm 07/02/25 09:49 07/02/25 10:44 Polyethylene Glycol 3350 17 Gm Powd.Pack PO 17 gm QAM PRN Administration Constipation Primidone 50 mg 07/02/25 10:20 Primidone 50 Mg Tablet PO Q12HR NOBLE Terazosin HCl 5 mg 07/01/25 13:50 07/02/25 08:34 Terazosin Hcl 5 Mg Capsule PO 5 mg DAILY NOBLE Administration Radiology Results: ITS Impressions Abdomen/Pelvis CT 07/01/25 09:50 IMPRESSION: 1. Acute interstitial pancreatitis. Correlate with lipase levels. 2. Cholelithiasis. Abdomen X-Ray 07/02/25 09:02 IMPRESSION: 1. Nonspecific nonobstructive bowel gas pattern. Labs Labs: Laboratory Results - last 24 hr 07/01/25 07/01/25 07/02/25 17:07 21:36 00:31 WBC RBC Hgb Hct MCV MCH MCHC RDW Plt Count MPV Immature Gran % (Auto) Neut % (Auto) Lymph % (Auto) Bertie % (Auto) Eos % (Auto) Baso % (Auto) Lymph # (Auto) Bertie # (Auto) Eos # (Auto) Baso # (Auto) Abs Immat Gran (auto) Absolute Neuts (auto) Absolute Nucleated RBC Nucleated RBC % Sodium Potassium Chloride Carbon Dioxide Anion Gap BUN Creatinine Estim Creat Clear Calc Estimated GFR Glucose POC Capillary Glucose 189 H 190 H 152 H Calcium Lipase 07/02/25 07/02/25 07/02/25 05:56 06:38 07:59 WBC 17.4 H RBC 4.52 L Hgb 13.8 L Hct 43.1 MCV 95.4 MCH 30.5 MCHC 32.0 RDW 13.4 Plt Count 163 MPV 11.3 H Immature Gran % (Auto) 0.6 H Neut % (Auto) 87.9 H Lymph % (Auto) 4.1 L Bertie % (Auto) 7.2 Eos % (Auto) 0.0 Baso % (Auto) 0.2 Lymph # (Auto) 0.71 L Bertie # (Auto) 1.3 H Eos # (Auto) 0.0 Baso # (Auto) 0.0 Abs Immat Gran (auto) 0.11 H Absolute Neuts (auto) 15.3 H Absolute Nucleated RBC 0.000 Nucleated RBC % 0.0 Sodium 137 Potassium 3.7 Chloride 105 Carbon Dioxide 22 Anion Gap 10 BUN 23 H Creatinine 0.91 Estim Creat Clear Calc 70 Estimated GFR > 60 Glucose 166 H POC Capillary Glucose 176 H 189 H Calcium 7.7 L Lipase 1588 H Quality VTE Prophylaxis VTE prophylaxis: mechanical ordered
[2025-07-02] MEDS: PRIMIDONE 50 MG TABLET PO ×2 (12:15→21:00)
[2025-07-02] MEDS: INSULIN ASPART (*BKC) 100 UNITS/ML SUB-Q ×2 (12:16→18:02)
[2025-07-02 14:00] VITALS: BP 120/63; PULSE 92; RESP 18; TEMP 36.6; O2SAT 90
--- NOTE | 2025-07-02 18:20 | PC.NURSE ---
RN pulled 1mg of Dilaudid to be administered to patient. 1mg of Dilaudid was administered to patient at 1351. RN later noticed an error in charting. Dilaudid dose was charted under 0.5mg Dilaudid dose. 0.5mg charting was undone. 1mg charted for 1351.
[2025-07-02 20:00] VITALS: O2SAT 91
[2025-07-02] MEDS: INSULIN GLARGINE (*BKC) 100 UNITS/ML 15 UNITS SUB-Q (21:04)
[2025-07-02] MEDS: LATANOPROST 0.005% OP SOLN 2.5 ML BTL 1 DROP EACH EYE (21:12)
[2025-07-02 21:53] VITALS: BP 146/63; PULSE 97; RESP 20; TEMP 37.6; O2SAT 91
[2025-07-03] MEDS: PIPERACILLIN/TAZOBACTAM SOD 3.375 GM in SODIUM CHLORIDE 0.9% IV 50 ML 100 ML IVPB ×5 (00:25→23:36)
[2025-07-03] MEDS: HYDROmorphone HCL INJ (*CRX) 1 MG/ML SYR IV PUSH ×5 (00:45→23:33)
[2025-07-03] MEDS: KETOROLAC 15 MG/ML VIAL (*BKC) IV PUSH ×4 (02:54→20:38)
[2025-07-03 06:00] VITALS: BP 154/73; PULSE 90; RESP 24; TEMP 36.9; O2SAT 92
[2025-07-03 06:26] VITALS: O2SAT 93
[2025-07-03 06:38] LABS: Hematocrit 39.2 % (42.0-52.0); Hemoglobin 13.1 g/dL (14.0-18.0); Mean Corpuscular HGB Conc 33.4 g/dl (32-36); Mean Corpuscular Hemoglobin 31.0 pg (26-34); Mean Corpuscular Volume 92.7 fl (80-100); Platelet Count Result 154 k/mm3 (150-375); Red Blood Count 4.23 M/mm3 (4.6-6.20); White Blood Count 15.1 K/mm3 (4.5-10.0)
[2025-07-03 07:05] LABS: Alanine Aminotransferase 31 U/L (6-50); Albumin Level 3.7 g/dL (3.5-5.1); Alkaline Phosphatase 56 U/L (38-126); Anion Gap 6 mmol/L (4-12); Aspartate Amino Transferase 52 U/L (17-59); Bilirubin,Total 1.9 mg/dL (0.2-1.3); Blood Urea Nitrogen 20 mg/dL (9-20); Calcium 7.7 mg/dL (8.4-10.2); Carbon Dioxide 26 mmol/L (22-30); Chloride 101 mmol/L (98-107); Estimated CRCL calculation 70 ml/min; Estimated Glomerular Filt Rate > 60; Glucose 141 mg/dL (65-110); Lipase 362 U/L (23-300); Potassium 3.2 mmol/L (3.4-5.0); Sodium 133 mmol/L (137-145); Total Protein 6.7 g/dL (6.3-8.2)
[2025-07-03] MEDS: DOCUSATE SODIUM 100 MG CAPSULE PO ×2 (08:10→17:42)
[2025-07-03] MEDS: EMPAGLIFLOZIN 25 MG TABLET BY MOUTH (08:10)
[2025-07-03] MEDS: ASPIRIN 325 MG TABLET PO (08:10)
[2025-07-03] MEDS: TERAZOSIN HCL 5 MG CAPSULE PO (08:10)
[2025-07-03] MEDS: PRIMIDONE 50 MG TABLET PO ×2 (08:11→20:38)
[2025-07-03] MEDS: PANTOPRAZOLE 40 MG TABLET PO (08:11)
--- NOTE | 2025-07-03 08:32 | PM.PNGS ---
Progress Note: A&P Assessment and Plan (1) Pancreatitis: Code(s): K85.90 - Acute pancreatitis without necrosis or infection, unspecified Status: Acute Assessment and Plan: improved, will advance to low-fat diet as tolerated, exam benign (2) Cholelithiasis: Code(s): K80.20 - Calculus of gallbladder without cholecystitis without obstruction Status: Acute Assessment and Plan: will likely need interval cholecystectomy, did discuss with patient and will likely do as outpatient Subjective Subjective Date/Time Seen: 07/03/25 08:32 Interval history: feels better, abdominal pain largely resolved, complaining of back pain Review of Systems Review of Systems: All systems reviewed & are unremarkable except as noted in HPI and below Exam Const: General: cooperative, no acute distress and uncomfortable Resp: Auscultation: clear to auscultation bilaterally Cardio: Rate: regular rate Rhythm: regular rhythm GI: Inspection: normal to inspection and non-distended GI Palp: No abdominal tenderness and Yes Soft to palpation Objective Data Vital Signs Vital Signs: Vital Signs - 24 hr 07/02/25 08:42 07/02/25 08:45 07/02/25 14:00 Temperature 36.6 C Pulse Rate 96 92 Respiratory Rate 18 18 Blood Pressure 183/64 H 120/63 Pulse Oximetry 91 90 Oxygen Delivery Room Air Oxygen Flow Rate 07/02/25 20:00 07/02/25 21:53 07/03/25 06:00 Temperature 37.6 C H 36.9 C Pulse Rate 97 90 Respiratory Rate 20 24 H Blood Pressure 146/63 H 154/73 H Pulse Oximetry 91 91 92 Oxygen Delivery Nasal Cannula Oxygen Flow Rate 2 07/03/25 06:26 Temperature Pulse Rate Respiratory Rate Blood Pressure Pulse Oximetry 93 Oxygen Delivery Nasal Cannula Oxygen Flow Rate 2 Intake/Output Intake/Output: Intake & Output 06/30/25 07/01/25 07/02/25 07/03/25 23:59 23:59 23:59 23:59 Intake Total 3000 2090 400 Balance 3000 2090 400 Meds/Results Medications: Active Medications Generic Name Dose Route Start Last Admin Trade Name Freq PRN Reason Stop Dose Admin Allopurinol 300 mg 07/01/25 13:50 07/03/25 08:11 Allopurinol 300 Mg Tablet PO 300 mg DAILY NOBLE Administration Amlodipine Besylate 10 mg 07/01/25 13:50 07/03/25 08:11 Amlodipine Besylate 10 Mg Tablet PO 10 mg DAILY NOBLE Administration Aspirin 325 mg 07/01/25 13:50 07/03/25 08:10 Aspirin 325 Mg Tablet PO 325 mg DAILY NOBLE Administration Atorvastatin Calcium 10 mg 07/03/25 18:00 Atorvastatin 10 Mg Tablet PO QPM NOBLE Dextrose 12.5 gm 07/01/25 13:39 Dextrose 50% 25 Gm/50 Ml Syringe IV PUSH PRN PRN Hypoglycemia Protocol Docusate Sodium 100 mg 07/01/25 17:00 07/03/25 08:10 Docusate Sodium 100 Mg Capsule PO 100 mg BID NOBLE Administration Empagliflozin 25 mg 07/03/25 09:00 07/03/25 08:10 Empagliflozin 25 Mg Tablet BY MOUTH 25 mg DAILY NOBLE Administration Glucagon 1 mg 07/01/25 13:39 Glucagon For Inj 1 Mg Vial IM PRN PRN Hypoglycemia Protocol Glucose 15 gm 07/01/25 13:39 Glucose Oral Gel 15 Gm Of Glucse In 37.5 Gm Tube PO PRN PRN Hypoglycemia Protocol Hydromorphone HCl 0.5 mg 07/01/25 11:05 07/02/25 05:41 Hydromorphone Hcl Inj (*Crx) 1 Mg/Ml Syr IV PUSH 0.5 mg Q4H PRN Administration Pain Rated 7-10 Hydromorphone HCl 1 mg 07/02/25 08:59 07/03/25 05:54 Hydromorphone Hcl Inj (*Crx) 1 Mg/Ml Syr IV PUSH 1 mg Q4H PRN Administration Pain Rated 7-10 Dextrose 1,000 mls @ 100 mls/hr 07/01/25 13:39 Dextrose 5% 1,000 Ml IVPB PRN PRN Hypoglycemia Protocol Piperacillin Sod/Tazobactam 50 mls @ 100 mls/hr 07/02/25 00:00 07/03/25 05:51 Sod 3.375 gm/ Sodium Chloride IVPB 100 mls/hr Q6HR NOBLE Administration Insulin Aspart 4 - 8 units 07/01/25 18:00 07/03/25 06:27 Insulin Aspart (*Bkc) 100 Units/Ml SUB-Q Not Given Q6HR [facility] Protocol Insulin Glargine 15 units 07/01/25 21:00 07/02/25 21:04 Insulin Glargine (*Bkc) 100 Units/Ml 0.15 units/kg (15 units) 15 units SUB-Q Administration HS NOBLE Ketorolac Tromethamine 15 mg 07/01/25 14:00 07/03/25 08:11 Ketorolac 15 Mg/Ml Vial (*Bkc) IV PUSH 15 mg Q6H NOBLE Administration Latanoprost 1 drop 07/01/25 21:00 07/02/25 21:12 Latanoprost 0.005% Op Soln 2.5 Ml Btl EACH EYE 1 drop HS NOBLE Administration Lisinopril 20 mg 07/03/25 09:00 07/03/25 08:11 Lisinopril 20 Mg Tablet PO 20 mg QAM NOBLE Administration Ondansetron HCl 4 mg 07/01/25 11:05 Ondansetron Inj 4 Mg/2 Ml Vial IV PUSH Q4H PRN Nausea Pantoprazole Sodium 40 mg 07/01/25 13:50 07/03/25 08:11 Pantoprazole 40 Mg Tablet PO 08/01/25 13:49 40 mg DAILY NOBLE Administration Polyethylene Glycol 17 gm 07/02/25 09:49 07/02/25 10:44 Polyethylene Glycol 3350 17 Gm Powd.Pack PO 17 gm QAM PRN Administration Constipation Primidone 50 mg 07/02/25 10:20 07/03/25 08:11 Primidone 50 Mg Tablet PO 50 mg Q12HR NOBLE Administration Terazosin HCl 5 mg 07/01/25 13:50 07/03/25 08:10 Terazosin Hcl 5 Mg Capsule PO 5 mg DAILY NOBLE Administration Radiology Results: ITS Impressions Abdomen/Pelvis CT 07/01/25 09:50 IMPRESSION: 1. Acute interstitial pancreatitis. Correlate with lipase levels. 2. Cholelithiasis. Abdomen X-Ray 07/02/25 09:02 IMPRESSION: 1. Nonspecific nonobstructive bowel gas pattern. Labs Labs: Laboratory Results - last 24 hr 07/02/25 07/02/25 07/03/25 11:31 17:50 00:23 WBC RBC Hgb Hct MCV MCH MCHC RDW Plt Count MPV Sodium Potassium Chloride Carbon Dioxide Anion Gap BUN Creatinine Estim Creat Clear Calc Estimated GFR Glucose POC Capillary Glucose 219 H 233 H 139 H Calcium Total Bilirubin AST ALT Alkaline Phosphatase Total Protein Albumin Lipase 07/03/25 07/03/25 07/03/25 06:15 06:24 07:35 WBC 15.1 H RBC 4.23 L Hgb 13.1 L Hct 39.2 L MCV 92.7 MCH 31.0 MCHC 33.4 RDW 13.0 Plt Count 154 MPV 11.5 H Sodium 133 L Potassium 3.2 L Chloride 101 Carbon Dioxide 26 Anion Gap 6 BUN 20 Creatinine 0.91 Estim Creat Clear Calc 70 Estimated GFR > 60 Glucose 141 H POC Capillary Glucose 140 H 146 H Calcium 7.7 L Total Bilirubin 1.9 H AST 52 ALT 31 Alkaline Phosphatase 56 Total Protein 6.7 Albumin 3.7 Lipase 362 H
[2025-07-03] MEDS: HYDROmorphone HCL INJ (*CRX) 1 MG/ML SYR 0.5 MG IV PUSH (11:08)
--- NOTE | 2025-07-03 13:10 | P.PNIM_ITS ---
Progress Note: A&P Assessment and Plan (1) Pancreatitis: Code(s): K85.90 - Acute pancreatitis without necrosis or infection, unspecified Status: Acute Assessment and Plan: NPO r IV pain management LR at 200 Lipase in morning GI consult (2) Cholelithiasis: Code(s): K80.20 - Calculus of gallbladder without cholecystitis without obstruction Status: Acute Assessment and Plan: Patient with acute right upper quadrant pain on palpation and complaining of ri gors, tachycardic and tachypneic Surgery consult IV [employer] VTE (3) Diabetes: Code(s): E11.9 - Type 2 diabetes mellitus without complications Status: Acute Assessment and Plan: NPO Accu-Cheks q.6 SSI and Lantus 15 units, patient's home dose is 40 units of Tresiba (4) Hypertension: Code(s): I10 - Essential (primary) hypertension Status: Acute Assessment and Plan: Continue blood pressure medications (5) BPH (benign prostatic hyperplasia): Code(s): N40.0 - Benign prostatic hyperplasia without lower urinary tract symptoms Status: Acute Assessment and Plan: Continue Proscar Subjective Date/time seen: 07/03/25 13:10 Interval history: Patient currently admitted in the setting of pancreatitis. Patient have will have possible interval cholecystectomy due to cholelithiasis. Patient has a history of CVA. Patient also has back pain Review of Systems Review of Systems: 12 systems were reviewed and are negativ e except for as per HPI. Exam Narrative: General: well appearing, appears stated age. HEENT: normocephalic, atraumatic. Mucous membranes moist. EOMI, PERRLA, bilateral sclera anicteric, no conjunctival injection. Neck supple without JVD, lymphadenopathy, or bruit. Respiratory: clear to ascultation bilaterally. No rales/rhonic/wheezes. Cardiovascular: Regular rate and rhythm, normal S1-S2 upon ascultation. No murmurs, rubs, or clicks. PMI is nondisplaced, capillary refill less than 3 se cond. Abdomen: Soft, round, no pulsatile masses, No rebound, no guarding. No CVA tenderness, no hepatosplenomegaly. Bowel sounds present to all four quadrants. No high pitch or tinkling sounds, resonant to percussion. Mild pain right upper quadrant and lower abdominal on palpation. Unable to tele patient has positive Hopkins sign. Extremities: No cyanosis, clubbing, or edema present. Pulses are palpable 2/2. Active ROM to all four extremities. Neuro: Alert and orientated x 4. PERRLA. Cranial nerves 2-12 intact without focal deficit. Skin: Warm, dry, and intact, without rash, erythema, or lesion. Psych: pleasant, cooperative, normal speech, normal affect, no hallucinations, no dysarthia Objective Data Vital Signs Vital Signs: Vital Signs - 24 hr 07/02/25 14:00 07/02/25 20:00 07/02/25 21:53 Temperature 98 F 99.7 F H Pulse Rate 92 97 Respiratory Rate 18 20 Blood Pressure 120/63 146/63 H Pulse Oximetry 90 91 91 Oxygen Delivery Nasal Cannula Oxygen Flow Rate 2 07/03/25 06:00 07/03/25 06:26 07/03/25 08:00 Temperature 98.5 F Pulse Rate 90 Respiratory Rate 24 H Blood Pressure 154/73 H Pulse Oximetry 92 93 Oxygen Delivery Nasal Cannula Room Air Oxygen Flow Rate 2 Intake/Output Intake/Output: Intake & Output 06/30/25 07/01/25 07/02/25 07/03/25 23:59 23:59 23:59 23:59 Intake Total 3000 2090 980 Balance 3000 2090 980 Meds/Results Medications: Active Medications Generic Name Dose Route Start Last Admin Trade Name Freq PRN Reason Stop Dose Admin Hydrocodone Bitart/Acetaminophen 1 tab 07/03/25 11:01 Hydrocodone/Acetaminophen (*Crx) 5-325 Mg Tablet PO Q4H PRN Pain Rated 4-6 Allopurinol 300 mg 07/01/25 13:50 07/03/25 08:11 Allopurinol 300 Mg Tablet PO 300 mg DAILY NOBLE Administration Amlodipine Besylate 10 mg 07/01/25 13:50 07/03/25 08:11 Amlodipine Besylate 10 Mg Tablet PO 10 mg DAILY NOBLE Administration Aspirin 325 mg 07/01/25 13:50 07/03/25 08:10 Aspirin 325 Mg Tablet PO 325 mg DAILY NOBLE Administration Atorvastatin Calcium 10 mg 07/03/25 18:00 Atorvastatin 10 Mg Tablet PO QPM NOBLE Dextrose 12.5 gm 07/01/25 13:39 Dextrose 50% 25 Gm/50 Ml Syringe IV PUSH PRN PRN Hypoglycemia Protocol Docusate Sodium 100 mg 07/01/25 17:00 07/03/25 08:10 Docusate Sodium 100 Mg Capsule PO 100 mg BID NOBLE Administration Empagliflozin 25 mg 07/03/25 09:00 07/03/25 08:10 Empagliflozin 25 Mg Tablet BY MOUTH 25 mg DAILY NOBLE Administration Glucagon 1 mg 07/01/25 13:39 Glucagon For Inj 1 Mg Vial IM PRN PRN Hypoglycemia Protocol Glucose 15 gm 07/01/25 13:39 Glucose Oral Gel 15 Gm Of Glucse In 37.5 Gm Tube PO PRN PRN Hypoglycemia Protocol Hydromorphone HCl 0.5 mg 07/01/25 11:05 07/03/25 11:08 Hydromorphone Hcl Inj (*Crx) 1 Mg/Ml Syr IV PUSH 0.5 mg Q4H PRN Administration Pain Rated 7-10 Dextrose 1,000 mls @ 100 mls/hr 07/01/25 13:39 Dextrose 5% 1,000 Ml IVPB PRN PRN Hypoglycemia Protocol Piperacillin Sod/Tazobactam 50 mls @ 100 mls/hr 07/02/25 00:00 07/03/25 11:38 Sod 3.375 gm/ Sodium Chloride IVPB Infused Q6HR NOBLE Infusion Insulin Aspart 4 - 8 units 07/01/25 18:00 07/03/25 12:27 Insulin Aspart (*Bkc) 100 Units/Ml SUB-Q Not Given Q6HR [facility] Protocol Insulin Glargine 15 units 07/01/25 21:00 07/02/25 21:04 Insulin Glargine (*Bkc) 100 Units/Ml 0.15 units/kg (15 units) 15 units SUB-Q Administration HS NOBLE Ketorolac Tromethamine 15 mg 07/01/25 14:00 07/03/25 13:03 Ketorolac 15 Mg/Ml Vial (*Bkc) IV PUSH 15 mg Q6H NOBLE Administration Latanoprost 1 drop 07/01/25 21:00 07/02/25 21:12 Latanoprost 0.005% Op Soln 2.5 Ml Btl EACH EYE 1 drop HS NOBLE Administration Lisinopril 20 mg 07/03/25 09:00 07/03/25 08:11 Lisinopril 20 Mg Tablet PO 20 mg QAM NOBLE Administration Ondansetron HCl 4 mg 07/01/25 11:05 Ondansetron Inj 4 Mg/2 Ml Vial IV PUSH Q4H PRN Nausea Pantoprazole Sodium 40 mg 07/01/25 13:50 07/03/25 08:11 Pantoprazole 40 Mg Tablet PO 08/01/25 13:49 40 mg DAILY NOBLE Administration Polyethylene Glycol 17 gm 07/02/25 09:49 07/03/25 10:37 Polyethylene Glycol 3350 17 Gm Powd.Pack PO 17 gm QAM PRN Administration Constipation Primidone 50 mg 07/02/25 10:20 07/03/25 08:11 Primidone 50 Mg Tablet PO 50 mg Q12HR NOBLE Administration Terazosin HCl 5 mg 07/01/25 13:50 07/03/25 08:10 Terazosin Hcl 5 Mg Capsule PO 5 mg DAILY NOBLE Administration Radiology Results: ITS Impressions Abdomen/Pelvis CT 07/01/25 09:50 IMPRESSION: 1. Acute interstitial pancreatitis. Correlate with lipase levels. 2. Cholelithiasis. Abdomen X-Ray 07/02/25 09:02 IMPRESSION: 1. Nonspecific nonobstructive bowel gas pattern. Labs Labs: Laboratory Results - last 24 hr 07/02/25 07/03/25 07/03/25 17:50 00:23 06:15 WBC 15.1 H RBC 4.23 L Hgb 13.1 L Hct 39.2 L MCV 92.7 MCH 31.0 MCHC 33.4 RDW 13.0 Plt Count 154 MPV 11.5 H Sodium 133 L Potassium 3.2 L Chloride 101 Carbon Dioxide 26 Anion Gap 6 BUN 20 Creatinine 0.91 Estim Creat Clear Calc 70 Estimated GFR > 60 Glucose 141 H POC Capillary Glucose 233 H 139 H Calcium 7.7 L Total Bilirubin 1.9 H AST 52 ALT 31 Alkaline Phosphatase 56 Total Protein 6.7 Albumin 3.7 Lipase 362 H 07/03/25 07/03/25 07/03/25 06:24 07:35 11:39 WBC RBC Hgb Hct MCV MCH MCHC RDW Plt Count MPV Sodium Potassium Chloride Carbon Dioxide Anion Gap BUN Creatinine Estim Creat Clear Calc Estimated GFR Glucose POC Capillary Glucose 140 H 146 H 140 H Calcium Total Bilirubin AST ALT Alkaline Phosphatase Total Protein Albumin Lipase Quality VTE Prophylaxis VTE prophylaxis: mechanical ordered Hospitalist MIPS Advance Care Plan I have confirmed that the patient's Advanced Care Plan is present, code status is documented, or surrogate decision maker is listed in patient medical record.: Yes Medication Reconciliation I have utilized all available resources to obtain, update and review the patients current medications (includes all prescriptions, OTC, herbals, cannabis, and nutritional supplements).: Yes
[2025-07-03 14:00] VITALS: BP 130/55; PULSE 88; RESP 18; TEMP 37.2; O2SAT 95
[2025-07-03] MEDS: ONDANSETRON INJ 4 MG/2 ML VIAL IV PUSH ×2 (15:40→19:37)
[2025-07-03] MEDS: ATORVASTATIN 10 MG TABLET PO (17:42)
[2025-07-03] MEDS: INSULIN ASPART (*BKC) 100 UNITS/ML SUB-Q (18:39)
[2025-07-03] MEDS: LATANOPROST 0.005% OP SOLN 2.5 ML BTL 1 DROP EACH EYE (20:38)
[2025-07-03] MEDS: INSULIN GLARGINE (*BKC) 100 UNITS/ML 15 UNITS SUB-Q (20:39)
[2025-07-03 21:35] VITALS: BP 111/87; PULSE 88; RESP 16; TEMP 37.5; O2SAT 92
[2025-07-03] MEDS: HYDROcodone/acetaminophen (*CRX) 5-325 MG TABLET 1 TAB PO (22:05)
[2025-07-04] MEDS: HYDROcodone/acetaminophen (*CRX) 5-325 MG TABLET 1 TAB PO ×3 (02:04→16:17)
[2025-07-04] MEDS: KETOROLAC 15 MG/ML VIAL (*BKC) IV PUSH ×3 (02:05→15:35)
[2025-07-04] MEDS: HYDROmorphone HCL INJ (*CRX) 1 MG/ML SYR IV PUSH ×2 (04:09→08:15)
[2025-07-04] MEDS: PIPERACILLIN/TAZOBACTAM SOD 3.375 GM in SODIUM CHLORIDE 0.9% IV 50 ML 100 ML IVPB ×2 (05:53→12:50)
[2025-07-04 06:00] VITALS: BP 125/69; PULSE 87; RESP 20; TEMP 36.8; O2SAT 91
[2025-07-04] MEDS: TERAZOSIN HCL 5 MG CAPSULE PO (08:18)
[2025-07-04] MEDS: PRIMIDONE 50 MG TABLET PO (08:18)
[2025-07-04] MEDS: ASPIRIN 325 MG TABLET PO (08:18)
[2025-07-04] MEDS: PANTOPRAZOLE 40 MG TABLET PO (08:18)
[2025-07-04] MEDS: DOCUSATE SODIUM 100 MG CAPSULE PO ×2 (08:18→16:17)
[2025-07-04] MEDS: EMPAGLIFLOZIN 25 MG TABLET BY MOUTH (08:19)
--- NOTE | 2025-07-04 09:43 | P.PNIM_ITS ---
Progress Note: A&P Assessment and Plan (1) Pancreatitis: Code(s): K85.90 - Acute pancreatitis without necrosis or infection, unspecified Status: Acute Assessment and Plan: Low-fat diet IV pain management LR at 200 Lipase in morning (2) Cholelithiasis: Code(s): K80.20 - Calculus of gallbladder without cholecystitis without obstruction Status: Acute Assessment and Plan: Patient with acute right upper quadrant pain on palpation and complaining of rigors, tachycardic and tachypneic Surgery consult IV [employer] VTE (3) Diabetes: Code(s): E11.9 - Type 2 diabetes mellitus without complications Status: Acute Assessment and Plan: NPO Accu-Cheks q.6 SSI and Lantus 15 units, patient's home dose is 40 units of Tresiba (4) Hypertension: Code(s): I10 - Essential (primary) hypertension Status: Acute Assessment and Plan: Continue blood pressure medications (5) BPH (benign prostatic hyperplasia): Code(s): N40.0 - Benign prostatic hyperplasia without lower urinary tract symptoms Status: Acute Assessment and Plan: Continue Proscar Subjective Date/time seen: 07/04/25 09:43 Review of Systems Review of Systems: 12 systems were reviewed and are negativ e except for as per HPI. Exam Narrative: General: well appearing, appears stated age. HEENT: normocephalic, atraumatic. Mucous membranes moist. EOMI, PERRLA, helen ateral sclera anicteric, no conjunctival injection. Neck supple without JVD, lymphadenopathy, or bruit. Respiratory: clear to ascultation bilaterally. No rales/rhonic/wheezes. Cardiovascular: Regular rate and rhythm, normal S1-S2 upon ascultation. No murmurs, rubs, or clicks. PMI is nondisplaced, capillary refill less than 3 second. Abdomen: Soft, round, no pulsatile masses, No rebound, no guarding. No CVA tenderness, no hepatosplenomegaly. Bowel sounds present to all four quadrants. No high pitch or tinkling sounds, resonant to percussion. Mild pain right upper quadrant and lower abdominal on palpation. Unable to tele patient has positive Hopkins sign. Extremities: No cyanosis, clubbing, or edema present. Pulses are palpable 2/2. Active ROM to all four extremities. Neuro: Alert and orientated x 4. PERRLA. Cranial nerves 2-12 intact without focal deficit. Skin: Warm, dry, and intact, without rash, erythema, or lesion. Psych: pleasant, cooperative, normal speech, normal affect, no hallucinations, no dysarthia Objective Data Vital Signs Vital Signs: Vital Signs - 24 hr 07/03/25 14:00 07/03/25 20:00 07/03/25 21:35 Temperature 98.9 F 99.5 F Pulse Rate 88 88 Respiratory Rate 18 16 Blood Pressure 130/55 L 111/87 Pulse Oximetry 95 92 Oxygen Delivery Room Air 07/04/25 06:00 Temperature 98.3 F Pulse Rate 87 Respiratory Rate 20 Blood Pressure 125/69 Pulse Oximetry 91 Oxygen Delivery Intake/Output Intake/Output: Intake & Output 07/01/25 07/02/25 07/03/25 07/04/25 23:59 23:59 23:59 23:59 Intake Total 3000 0 2370 732 Balance 3000 2090 2370 732 Meds/Results Medications: Active Medications Generic Name Dose Route Start Last Admin Trade Name Freq PRN Reason Stop Dose Admin Hydrocodone Bitart/Acetaminophen 1 tab 07/03/25 11:01 07/04/25 02:04 Hydrocodone/Acetaminophen (*Crx) 5-325 Mg Tablet PO 1 tab Q4H PRN Administration Pain Rated 4-6 Allopurinol 300 mg 07/01/25 13:50 07/04/25 08:19 Allopurinol 300 Mg Tablet PO 300 mg DAILY NOBLE Administration Amlodipine Besylate 10 mg 07/01/25 13:50 07/04/25 08:18 Amlodipine Besylate 10 Mg Tablet PO 10 mg DAILY NOBLE Administration Aspirin 325 mg 07/01/25 13:50 07/04/25 08:18 Aspirin 325 Mg Tablet PO 325 mg DAILY NOBLE Administration Atorvastatin Calcium 10 mg 07/03/25 18:00 07/03/25 17:42 Atorvastatin 10 Mg Tablet PO 10 mg QPM NOBLE Administration Dextrose 12.5 gm 07/01/25 13:39 Dextrose 50% 25 Gm/50 Ml Syringe IV PUSH PRN PRN Hypoglycemia Protocol Docusate Sodium 100 mg 07/01/25 17:00 07/04/25 08:18 Docusate Sodium 100 Mg Capsule PO 100 mg BID NOBLE Administration Empagliflozin 25 mg 07/03/25 09:00 07/04/25 08:19 Empagliflozin 25 Mg Tablet BY MOUTH 25 mg DAILY NOBLE Administration Glucagon 1 mg 07/01/25 13:39 Glucagon For Inj 1 Mg Vial IM PRN PRN Hypoglycemia Protocol Glucose 15 gm 07/01/25 13:39 Glucose Oral Gel 15 Gm Of Glucse In 37.5 Gm Tube PO PRN PRN Hypoglycemia Protocol Hydromorphone HCl 1 mg 07/03/25 13:25 07/04/25 08:15 Hydromorphone Hcl Inj (*Crx) 1 Mg/Ml Syr IV PUSH 1 mg Q4H PRN Administration Pain Rated 7-10 Dextrose 1,000 mls @ 100 mls/hr 07/01/25 13:39 Dextrose 5% 1,000 Ml IVPB PRN PRN Hypoglycemia Protocol Piperacillin Sod/Tazobactam 50 mls @ 100 mls/hr 07/02/25 00:00 07/04/25 05:53 Sod 3.375 gm/ Sodium Chloride IVPB 100 mls/hr Q6HR NOBLE Administration Insulin Aspart 4 - 8 units 07/01/25 18:00 07/04/25 06:55 Insulin Aspart (*Bkc) 100 Units/Ml SUB-Q Not Given Q6HR NOBLE Protocol Insulin Glargine 15 units 07/01/25 21:00 07/03/25 20:39 Insulin Glargine (*Bkc) 100 Units/Ml 0.15 units/kg (15 units) 15 units SUB-Q Administration HS NOBLE Ketorolac Tromethamine 15 mg 07/01/25 14:00 07/04/25 08:16 Ketorolac 15 Mg/Ml Vial (*Bkc) IV PUSH 15 mg Q6H NOBLE Administration Latanoprost 1 drop 07/01/25 21:00 07/03/25 20:38 Latanoprost 0.005% Op Soln 2.5 Ml Btl EACH EYE 1 drop HS NOBLE Administration Lisinopril 20 mg 07/03/25 09:00 07/04/25 08:18 Lisinopril 20 Mg Tablet PO 20 mg QAM NOBLE Administration Ondansetron HCl 4 mg 07/01/25 11:05 07/03/25 19:37 Ondansetron Inj 4 Mg/2 Ml Vial IV PUSH 4 mg Q4H PRN Administration Nausea Pantoprazole Sodium 40 mg 07/01/25 13:50 07/04/25 08:18 Pantoprazole 40 Mg Tablet PO 08/01/25 13:49 40 mg DAILY NOBLE Administration Polyethylene Glycol 17 gm 07/02/25 09:49 07/03/25 10:37 Polyethylene Glycol 3350 17 Gm Powd.Pack PO 17 gm QAM PRN Administration Constipation Primidone 50 mg 07/02/25 10:20 07/04/25 08:18 Primidone 50 Mg Tablet PO 50 mg Q12HR NOBLE Administration Terazosin HCl 5 mg 07/01/25 13:50 07/04/25 08:18 Terazosin Hcl 5 Mg Capsule PO 5 mg DAILY NOBLE Administration Radiology Results: ITS Impressions Abdomen/Pelvis CT 07/01/25 09:50 IMPRESSION: 1. Acute interstitial pancreatitis. Correlate with lipase levels. 2. Cholelithiasis. Abdomen X-Ray 07/02/25 09:02 IMPRESSION: 1. Nonspecific nonobstructive bowel gas pattern. Labs Labs: Laboratory Results - last 24 hr 07/03/25 07/03/25 07/03/25 11:39 18:29 20:12 POC Capillary Glucose 140 H 210 H 166 H 07/04/25 07/04/25 00:06 06:54 POC Capillary Glucose 117 H 104 Quality VTE Prophylaxis VTE prophylaxis: mechanical ordered
[2025-07-04 11:10] LABS: Hematocrit 37.1 % (42.0-52.0); Hemoglobin 12.3 g/dL (14.0-18.0); Mean Corpuscular HGB Conc 33.2 g/dl (32-36); Mean Corpuscular Hemoglobin 30.4 pg (26-34); Mean Corpuscular Volume 91.6 fl (80-100); Platelet Count Result 156 k/mm3 (150-375); Red Blood Count 4.05 M/mm3 (4.6-6.20); White Blood Count 12.4 K/mm3 (4.5-10.0)
[2025-07-04 11:28] LABS: Lipase 102 U/L (23-300)
[2025-07-04 11:47] LABS: Alanine Aminotransferase 29 U/L (6-50); Albumin Level 3.4 g/dL (3.5-5.1); Alkaline Phosphatase 66 U/L (38-126); Anion Gap 8 mmol/L (4-12); Aspartate Amino Transferase 42 U/L (17-59); Bilirubin,Total 1.5 mg/dL (0.2-1.3); Blood Urea Nitrogen 18 mg/dL (9-20); Calcium 7.6 mg/dL (8.4-10.2); Carbon Dioxide 27 mmol/L (22-30); Chloride 99 mmol/L (98-107); Estimated CRCL calculation 69 ml/min; Estimated Glomerular Filt Rate > 60; Glucose 123 mg/dL (65-110); Potassium 3.0 mmol/L (3.4-5.0); Sodium 134 mmol/L (137-145); Total Protein 6.6 g/dL (6.3-8.2)
--- NOTE | 2025-07-04 11:53 | P.PNGS_ITS ---
Progress Note: A&P Assessment and Plan (1) Pancreatitis: Code(s): K85.90 - Acute pancreatitis without necrosis or infection, unspecified Status: Acute Assessment and Plan: resolved at this point, abdominal exam completely benign, continue low-fat diet (2) Cholelithiasis: Code(s): K80.20 - Calculus of gallbladder without cholecystitis without obstruction Status: Acute Assessment and Plan: long discussion with patient and regarding interval cholecystectomy, patient wishes to be discharged home with plans for outpatient cholecystectomy soon Subjective Subjective Date/Time Seen: 07/04/25 11:53 Interval history: still complaining of back pain, denies any further abdominal pain, tolerating low-fat diet Review of Systems Review of Systems: All systems reviewed & are unremarkable except as noted in HPI and below Exam Const: General: cooperative, comfortable and no acute distress Resp: Auscultation: clear to auscultation bilaterally Cardio: Rate: regular rate Rhythm: regular rhythm GI: Inspection: normal to inspection and non-distended GI Palp: No abdominal tenderness and Yes Soft to palpation Objective Data Vital Signs Vital Signs: Vital Signs - 24 hr 07/03/25 14:00 07/03/25 20:00 07/03/25 21:35 Temperature 37.2 C 37.5 C Pulse Rate 88 88 Respiratory Rate 18 16 Blood Pressure 130/55 L 111/87 Pulse Oximetry 95 92 Oxygen Delivery Room Air 07/04/25 06:00 07/04/25 08:15 Temperature 36.8 C Pulse Rate 87 Respiratory Rate 20 Blood Pressure 125/69 Pulse Oximetry 91 Oxygen Delivery Room Air Intake/Output Intake/Output: Intake & Output 07/01/25 07/02/25 07/03/25 07/04/25 23:59 23:59 23:59 23:59 Intake Total 3000 2090 2370 732 Balance 3000 2090 2370 732 Meds/Results Medications: Active Medications Generic Name Dose Route Start Last Admin Trade Name Freq PRN Reason Stop Dose Admin Hydrocodone Bitart/Acetaminophen 1 tab 07/03/25 11:01 07/04/25 02:04 Hydrocodone/Acetaminophen (*Crx) 5-325 Mg Tablet PO 1 tab Q4H PRN Administration Pain Rated 4-6 Allopurinol 300 mg 07/01/25 13:50 07/04/25 08:19 Allopurinol 300 Mg Tablet PO 300 mg DAILY NOBLE Administration Amlodipine Besylate 10 mg 07/01/25 13:50 07/04/25 08:18 Amlodipine Besylate 10 Mg Tablet PO 10 mg DAILY NOBLE Administration Aspirin 325 mg 07/01/25 13:50 07/04/25 08:18 Aspirin 325 Mg Tablet PO 325 mg DAILY NOBLE Administration Atorvastatin Calcium 10 mg 07/03/25 18:00 07/03/25 17:42 Atorvastatin 10 Mg Tablet PO 10 mg QPM NOBLE Administration Dextrose 12.5 gm 07/01/25 13:39 Dextrose 50% 25 Gm/50 Ml Syringe IV PUSH PRN PRN Hypoglycemia Protocol Docusate Sodium 100 mg 07/01/25 17:00 07/04/25 08:18 Docusate Sodium 100 Mg Capsule PO 100 mg BID NOBLE Administration Empagliflozin 25 mg 07/03/25 09:00 07/04/25 08:19 Empagliflozin 25 Mg Tablet BY MOUTH 25 mg DAILY NOBLE Administration Glucagon 1 mg 07/01/25 13:39 Glucagon For Inj 1 Mg Vial IM PRN PRN Hypoglycemia Protocol Glucose 15 gm 07/01/25 13:39 Glucose Oral Gel 15 Gm Of Glucse In 37.5 Gm Tube PO PRN PRN Hypoglycemia Protocol Hydromorphone HCl 1 mg 07/03/25 13:25 07/04/25 08:15 Hydromorphone Hcl Inj (*Crx) 1 Mg/Ml Syr IV PUSH 1 mg Q4H PRN Administration Pain Rated 7-10 Dextrose 1,000 mls @ 100 mls/hr 07/01/25 13:39 Dextrose 5% 1,000 Ml IVPB PRN PRN Hypoglycemia Protocol Piperacillin Sod/Tazobactam 50 mls @ 100 mls/hr 07/02/25 00:00 07/04/25 05:53 Sod 3.375 gm/ Sodium Chloride IVPB 100 mls/hr Q6HR NOBLE Administration Insulin Aspart 4 - 8 units 07/01/25 18:00 07/04/25 06:55 Insulin Aspart (*Bkc) 100 Units/Ml SUB-Q Not Given Q6HR [facility] Protocol Insulin Glargine 15 units 07/01/25 21:00 07/03/25 20:39 Insulin Glargine (*Bkc) 100 Units/Ml 0.15 units/kg (15 units) 15 units SUB-Q Administration HS [facility] Ketorolac Tromethamine 15 mg 07/01/25 14:00 07/04/25 08:16 Ketorolac 15 Mg/Ml Vial (*Bkc) IV PUSH 15 mg Q6H NOBLE Administration Latanoprost 1 drop 07/01/25 21:00 07/03/25 20:38 Latanoprost 0.005% Op Soln 2.5 Ml Btl EACH EYE 1 drop HS NOBLE Administration Lisinopril 20 mg 07/03/25 09:00 07/04/25 08:18 Lisinopril 20 Mg Tablet PO 20 mg QAM NOBLE Administration Ondansetron HCl 4 mg 07/01/25 11:05 07/03/25 19:37 Ondansetron Inj 4 Mg/2 Ml Vial IV PUSH 4 mg Q4H PRN Administration Nausea Pantoprazole Sodium 40 mg 07/01/25 13:50 07/04/25 08:18 Pantoprazole 40 Mg Tablet PO 08/01/25 13:49 40 mg DAILY NOBLE Administration Polyethylene Glycol 17 gm 07/02/25 09:49 07/03/25 10:37 Polyethylene Glycol 3350 17 Gm Powd.Pack PO 17 gm QAM PRN Administration Constipation Primidone 50 mg 07/02/25 10:20 07/04/25 08:18 Primidone 50 Mg Tablet PO 50 mg Q12HR NOBLE Administration Terazosin HCl 5 mg 07/01/25 13:50 07/04/25 08:18 Terazosin Hcl 5 Mg Capsule PO 5 mg DAILY NOBLE Administration Radiology Results: ITS Impressions Abdomen/Pelvis CT 07/01/25 09:50 IMPRESSION: 1. Acute interstitial pancreatitis. Correlate with lipase levels. 2. Cholelithiasis. Abdomen X-Ray 07/02/25 09:02 IMPRESSION: 1. Nonspecific nonobstructive bowel gas pattern. Labs Labs: Laboratory Results - last 24 hr 07/03/25 07/03/25 07/04/25 18:29 20:12 00:06 WBC RBC Hgb Hct MCV MCH MCHC RDW Plt Count MPV Sodium Potassium Chloride Carbon Dioxide Anion Gap BUN Creatinine Estim Creat Clear Calc Estimated GFR Glucose POC Capillary Glucose 210 H 166 H 117 H Calcium Total Bilirubin AST ALT Alkaline Phosphatase Total Protein Albumin Lipase 07/04/25 07/04/25 06:54 09:54 WBC 12.4 H RBC 4.05 L Hgb 12.3 L Hct 37.1 L MCV 91.6 MCH 30.4 MCHC 33.2 RDW 12.8 Plt Count 156 MPV 11.7 H Sodium 134 L Potassium 3.0 L Chloride 99 Carbon Dioxide 27 Anion Gap 8 BUN 18 Creatinine 0.92 Estim Creat Clear Calc 69 Estimated GFR > 60 Glucose 123 H POC Capillary Glucose 104 Calcium 7.6 L Total Bilirubin 1.5 H AST 42 ALT 29 Alkaline Phosphatase 66 Total Protein 6.6 Albumin 3.4 L Lipase 102
--- NOTE | 2025-07-04 12:48 | P.DS_ITS ---
DS: Admitting Diagnosis Discharge Date 07/04/2025 Admitting Diagnosis Pancreatitis DS: Discharge Diagnosis Discharge Diagnosis (1) Pancreatitis: Code(s): K85.90 - Acute pancreatitis without necrosis or infection, unspecified Status: Acute Assessment and Plan: Low-fat diet IV pain management LR at 200 Lipase in morning (2) Cholelithiasis: Code(s): K80.20 - Calculus of gallbladder without cholecystitis without obstruction Status: Acute Assessment and Plan: Patient with acute right upper quadrant pain on palpation and complaining of rigors, tachycardic and tachypneic Surgery consult IV [employer] VTE (3) Diabetes: Code(s): E11.9 - Type 2 diabetes mellitus without complications Status: Acute Assessment and Plan: NPO Accu-Cheks q.6 SSI and Lantus 15 units, patient's home dose is 40 units of Tresiba (4) Hypertension: Code(s): I10 - Essential (primary) hypertension Status: Acute Assessment and Plan: Continue blood pressure medications (5) BPH (benign prostatic hyperplasia): Code(s): N40.0 - Benign prostatic hyperplasia without lower urinary tract symptoms Status: Acute Assessment and Plan: Continue Proscar DS: Summary Hospital Course Hospital Course: 74-year-old male with history of kidney stones, diabetes and hypertension presents the hospital with acute abdominal pain. He also complains of nausea vomiting and sweating. Patient states that he will drink beers on Fridays. Patient states on Saturday he half of a chocolate pie after that he had acute abdominal pain. He has complained rigors and chills. He states that he has right upper quadrant pain and lower abdominal pain. Patient states he has never had pancreatitis before. Lab work in the ED shows leukocytosis at 15.2, carbon dioxide 28, anion gap of 14, BUN of 27, glucose of 235, AST of 57,UA negative for infection, CT abdomen and pelvis shows acute interstitial pancreatitis and cholelithiasis. Patient has been given and aggressive fluid hydration and pain medications. 07/04/2025: Patient is tolerating low-fat diet. Surgery agrees to discharge the patient with follow-up as an outpatient for interval cholecystectomy. Patient complains of back pain which he reports due to hospital bed. Patient was receiving Dilaudid and [place] due to back. Patient reports initially he came because of the abdominal pain but it has been resolved. On the day of discharge, the patient was seen and examined. Vital signs were stable. Physical exam were stable and labs were reviewed at length. Discharge instructions, medications, and follow-up appointments were discussed with the patient at length and all day questions were answered. ER warnings were given. Status at Discharge Cognitive/behavioral status at discharge: Stable Time Spent with Patient Time attestation: Total time spent providing and/or coordinating discharge services: 45 minutes Exam Narrative: General: well appearing, appears stated age. HEENT: normocephalic, atraumatic. Mucous membranes moist. EOMI, PERRLA, bilateral sclera anicteric, no conjunctival injection. Neck supple without JVD, lymphadenopathy, or bruit. Respiratory: clear to ascultation bilaterally. No rales/rhonic/wheezes. Cardiovascular: Regular rate and rhythm, normal S1-S2 upon ascultation. No murmurs, rubs, or clicks. PMI is nondisplaced, capillary refill less than 3 second. Abdomen: Soft, round, no pulsatile masses, No rebound, no guarding. No CVA tenderness, no hepatosplenomegaly. Bowel sounds present to all four quadrants. No high pitch or tinkling sounds, resonant to percussion. Mild pain right upper quadrant and lower abdominal on palpation. Unable to tele patient has positive Hopkins sign. Extremities: No cyanosis, clubbing, or edema present. Pulses are palpable 2/2. Active ROM to all four extremities. Neuro: Alert and orientated x 4. PERRLA. Cranial nerves 2-12 intact without focal deficit. Skin: Warm, dry, and intact, without rash, erythema, or lesion. Psych: pleasant, cooperative, normal speech, normal affect, no hallucinations, no dysarthia DS: Data Data Completed and Pending Labs on day of discharge: Labs from last 24 hours 07/04/25 07/04/25 07/04/25 11:45 09:54 06:54 WBC 12.4 H RBC 4.05 L Hgb 12.3 L Hct 37.1 L MCV 91.6 MCH 30.4 MCHC 33.2 RDW 12.8 Plt Count 156 MPV 11.7 H Sodium 134 L Potassium 3.0 L Chloride 99 Carbon Dioxide 27 Anion Gap 8 BUN 18 Creatinine 0.92 Estim Creat Clear Calc 69 Estimated GFR > 60 Glucose 123 H POC Capillary Glucose 160 H 104 Calcium 7.6 L Total Bilirubin 1.5 H AST 42 ALT 29 Alkaline Phosphatase 66 Total Protein 6.6 Albumin 3.4 L Lipase 102 07/04/25 07/03/25 07/03/25 00:06 20:12 18:29 WBC RBC Hgb Hct MCV MCH MCHC RDW Plt Count MPV Sodium Potassium Chloride Carbon Dioxide Anion Gap BUN Creatinine Estim Creat Clear Calc Estimated GFR Glucose POC Capillary Glucose 117 H 166 H 210 H Calcium Total Bilirubin AST ALT Alkaline Phosphatase Total Protein Albumin Lipase Imaging Radiologist's impression: ITS Impressions Abdomen/Pelvis CT 07/01/25 09:50 IMPRESSION: 1. Acute interstitial pancreatitis. Correlate with lipase levels. 2. Cholelithiasis. Abdomen X-Ray 07/02/25 09:02 IMPRESSION: 1. Nonspecific nonobstructive bowel gas pattern. Discharge Plan Discharge Attending physician on discharge: Ben Ortega Consulting providers: Aurea Huizar Discharging Clinician: Ben Ortega Anticipated Discharge Date/Time: 07/04/25 14:14 Patient Disposition: Home Activity: as tolerated Diet: low fat Discharge Instructions: Please return to ED for any concerning symptoms. Please closely follow-up with the surgery team for interval cholecystectomy. Low-fat diet Please follow-up with PCP within a week upon discharge Patient Instructions: Antibiotic Form Patient Language: Urdu Stand Alone Forms: General Discharge Information Follow-up/Referrals: Aurea Huiazr MD [Physician, General Surgery] Discharge Medications: New hydrocodone-acetaminophen 5-325 mg tablet 1 tablet PO Q6H PRN (Reason: pain) Qty: 20 0RF hydrocodone-acetaminophen 5-325 mg Tablet 1 tablet PO Q4H PRN (Reason: Pain Rated 4-6) Qty: 15 0RF docusate sodium 100 mg Capsule 100 mg PO BID Qty: 10 0RF Continued tramadol [Ultram] 50 mg tablet 50 mg PO HS Qty: 20 0RF allopurinol 300 mg tablet 300 mg PO DAILY aspirin 325 mg tablet 325 mg PO DAILY latanoprost 0.005 % drops 1 drop EACH EYE DAILY omeprazole 20 mg capsule,delayed release(DR/EC) 20 mg PO DAILY terazosin 5 mg capsule 5 mg PO DAILY glimepiride 4 mg tablet 4 mg PO QAM Rx Instructions: administer with breakfast insulin degludec [Tresiba FlexTouch U-200] 200 unit/mL (3 mL) insulin pen 40 unit SUBCUT DAILY amlodipine 10 mg tablet 10 mg PO DAILY atorvastatin 10 mg tablet 10 mg PO QPM primidone 50 mg tablet 50 mg PO Q12H fosinopril 20 mg tablet 20 mg PO DAILY dapagliflozin propanediol [Farxiga] 10 mg tablet 10 mg PO DAILY Date of admission: 07/02/25 08:09 Primary Care Provider: Dale,Wally Admitting Provider: Rebecca Jaeger Attending physician on admission: Rebecca Jaeger Condition: Stable
[2025-07-04 14:00] VITALS: BP 153/72; PULSE 88; RESP 18; TEMP 38.3; O2SAT 90
[2025-07-04 16:00] VITALS: TEMP 37.2
== END 2025-07-04 16:30 | disposition home or self-care (01) | DRG 440 ==
LOC: ANHED 09:02 → ANH3MEDSUR 11:16
PROVIDERS: Emergency Medicine; Nurse Practitioner Gerontology; Admitting Provider General Practice; Emergency Provider Registered Nurse; PCP Internal Medicine; Visit Provider General Practice
DX: K85.10 Biliary acute pancreatitis without necrosis or infection (principal); K80.20 Calculus of gallbladder without cholecystitis without obstruction; E11.9 Type 2 diabetes mellitus without complications; N40.0 Benign prostatic hyperplasia without lower urinary tract symptoms; M47.816 Spondylosis without myelopathy or radiculopathy, lumbar region; M10.9 Gout, unspecified; Z96.651 Presence of right artificial knee joint; Z79.4 Long term (current) use of insulin; Z79.82 Long term (current) use of aspirin; Z87.442 Personal history of urinary calculi
CPT/HCPCS: 36415; 74018; 74177; 80048; 80053; 81001; 82948; 83605; 83690; 85025; 85027; 93005; 96361; 96374; 96375; 99285; A9270; G0378; J1171; J1815; J1885; J2270; J2405; J2543; J7030; J7120; Q9967

== ENCOUNTER 2025-07-07 03:04 | Day surgery (SDC) | payer MEDICARE, SELFPAY ==
[2025-07-06 15:07] VITALS: BMI 34.5
--- NOTE | 2025-07-06 15:09 | PC.NURSE ---
Report to the Outpatient Waiting Room, entrance under the green pavilion located off [facility], at time _1230_ on date _[id number]_. Planned Procedure Time: _230pm_.? Time changes happen often and if your time is changed the preop area will call you the afternoon before. - You and your visitor will be asked to self-screen and do not enter if you have any COVID symptoms. Please call surgeon if you need to reschedule. - A mask is optional within the hospital at this time. Patients may have clear liquids (water, carbonated beverages, clear teas, apple juice) until 3 hours prior to surgery with a maximum of 20 ounces. - No food from midnight until time of surgery and no smoking, or chewing tobacco (or any form of nicotine). No chewing gum, candy or mints. Take only the following medications with a SIP of water on the morning of surgery: ___Take 20 units insulin in the morning. Also take Amlodipine and if needed Hydrocodone.____ DO NOT STOP ANY OF YOUR OTHER PRESCRIPTION MEDICATIONS PRIOR TO SURGERY EXCEPT THE FOLLOWING Hold all vitamins and supplements for 3 days per anesthesiologist. Medications to discontinue per physician Date to take last dose Please no make-up, nail moroccan, hairspray, perfume, deodorant, or body powder the day of surgery.? No jewelry (including any body piercings) or valuables the day of surgery, leave them at home.? Please take a shower or bath the night before, or the morning of, surgery with an antibacterial soap.? Wear comfortable, loose fitting clothing.? - Jewelry must be removed prior to entering the operating room.? Rings and piercings that are not removed may be cut off. - The hospital will not accept responsibility for valuables.? - Please leave all valuables, including medications, at home the day of surgery. If you are going home after surgery, a licensed hazmat cdl driver must drive you home.? - NO public transportation without another adult if you receive anesthesia. - We recommend that an adult stay with you for 24 hours following discharge. - We also recommend that you do not drive, make important decision, drink alcoholic beverages, or take any drugs that were not prescribed by your health care provider for at least 24 hours after your discharge time. Follow any additional instructions given to you from your surgeon. Telephone instructions given to __Neo and Alice__and asked if any additional questions and then verbalized understanding. Patient advised to call surgeon office or pre surgery nurse liaison [phone] if any additional questions.
[2025-07-07] VITALS (14 sets, daily range): BP systolic 132–156; BP diastolic 67–81; PULSE 70–88; RESP 12–18; TEMP 36.3–36.9; O2SAT 92–100; BMI 33.6
--- OUTSIDE RECORDS SUMMARY | 2025-07-07 03:08 | XMS_ITS | Encounter Summary ---
Author Organization [facility] Address [address] [place] [address] Care Team Providers Care Care Taker Name Role Phone Wally Hunter MD Primary Care Provider Encounter Details Date Type Department Care Team (Late st Contact Info) Description 03/28/2019 Abstract [facility]FL CONVERSION [address] [place] [address] , Generic Conversion, Social History Tobacco Use [...] on filedocumented in this encounter Care Teams Care Taker Relationship Specialty Start Date End Date Wally Hunter MD PCP - General INTERNAL MEDICINE 04/14/19 documented as of this encounter
--- OUTSIDE RECORDS SUMMARY | 2025-07-07 03:08 | XMS_ITS | Patient Health Record ---
Author Organization [facility] Address [address] [place], [place] [id number] Care Team Providers Care Numerical Analysis Group Manager Name Role Phone MarianaLINDA dent Unavailable [phone] Hunter Unavailable Unavailable Reason For Referral No Information Plan Of Treatment No Information Insurance Providers Payer Name Payer Address Payer Phone Subscriber Number Group Number Insured Name Patient Relationship to Insured Coverage Start Date Coverage End Date Medicare Part B [place] [address] [place] [address] [id number] RAHUL HERNANDEZ Self - patient is the insured [facility] [address] [address] [place], [place] [id number] [phone] [id number] RAHUL HERNANDEZ Self - patient is the insured
--- OUTSIDE RECORDS SUMMARY | 2025-07-07 03:08 | XMS_ITS | Clinical Summary ---
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 [address] [place] [id number] Health Maintenance Due Date Last Done Comments [...] INFLUENZA VACCINE (#1) 2025 Insurance Care Teams Manager Integrated Relationship Specialty Start Date End Date Wally Hunter MD [address] [place] [phone] PCP - General Internal Medicine 12/16/24
--- OUTSIDE RECORDS SUMMARY | 2025-07-07 03:08 | XMS_ITS | Clinical Summary ---
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 Pulse 69 10/29/2023 9:29 AM CONSTITUTIONAL LAW PROFESSOR Temperature 35.7 C (96.3 F) 10/29/2023 9:00 AM CONSTITUTIONAL LAW PROFESSOR Respiratory Rate 16 10/29/2023 9:29 AM CONSTITUTIONAL LAW PROFESSOR Oxygen Saturation 97% 10/29/2023 9:29 AM CONSTITUTIONAL LAW PROFESSOR Inhaled Oxygen Concentration - - Weight 97.5 kg (215 lb) 10/25/2023 8:22 AM CONSTITUTIONAL LAW PROFESSOR Height 167.6 cm (5' 6) 10/25/2023 8:22 AM CONSTITUTIONAL LAW PROFESSOR Body Mass Index 34.7 10/25/2023 8:22 AM CONSTITUTIONAL LAW PROFESSOR Plan of Treatment Health Maintenance Due Date Last Done Comments Colorectal Cancer Screening Colonoscopy (10 Years) 1950 Hepatitis C 1968 Zoster Vaccines (1 of 2) 2000 Annual Medicare Wellness Visit 2015 Pneumococcal Vaccine: 50+ Years (2 of 2 - PPSV23) 07/02/2019 07/02/2018, 07/01/2018 DTaP, Tdap and Td Vaccines ( 2 - Td or Tdap) 05/05/2022 05/05/2012 COVID-19 Vaccine (3 - 2024-2 6 season) 2025 12/13/2020, 11/22/2020 RSV Immunization or 60+ Years (1 - 1-dose 75+ series) 2025 Meningococcal B Vaccine Aged Out No l onger eligible based on patient's age to complete this topic Meningococcal Vaccine Aged Out No deysi brian eligible based on patient's age to complete this topic RSV Immunizations Under 20 Months Aged Out No longer eligible b ased on patient's age to complete this topic Insurance [facility] MEDICARE Care Teams Cans Vacuum Tester Relationship Specialty Start Date End Date Wally Hunter MD PCP - General INTERNAL MEDICINE 04/14/19
--- NOTE | 2025-07-07 09:44 | WPDHPUPDATE1 ---
History and Physical Update Update Date/Time: 07/07/25 09:44 History and Physical has been reviewed, including an updated exam of the patient. There are NO changes in the patient's condition. Risks, benefits, and alternatives have been discussed and questions answered. Patient agrees to proceed with procedure.
[2025-07-07] MEDS: KETOROLAC 15 MG/ML VIAL (*BKC) IV PUSH (13:19)
[2025-07-07] MEDS: ACETAMINOPHEN 500 MG TABLET 1000 MG PO (13:19)
[2025-07-07 13:35] LABS: Amylase 52 U/L (30-110)
--- NOTE | 2025-07-07 13:36 | WPDANESEPPF ---
Anes - Initial Pre Proc Eval Procedure: Operation Date: 07/07/25 14:30 Proposed Procedures p Laparoscopic Cholecystectomy - Aurea Huizar MD Date/Time: 07/07/25 13:36 Surgeon: Aurea Huizar MD Pre Op Diagnosis: cholelithiasis Patient Data Age: 74 Gender: M Height: 1.7 m Weight: 97.5 kg Last Vital Signs Temp 98.4 F 07/07/25 13:17 Pulse 88 07/07/25 13:17 BP 155/67 H 07/07/25 13:17 Pulse Ox 98 07/07/25 13:17 O2 Del Method Room Air 07/07/25 13:17 Allergies Allergy/AdvReac Type Severity Reaction Status Date / Time No Known Allergies Allergy Verified 07/06/25 14:55 Home Medications ?Medication ?Instructions ?Recorded ?Confirmed ?Type allopurinol 300 mg tablet 300 mg PO DAILY 11/17/19 07/06/25 History aspirin 325 mg tablet 325 mg PO DAILY 11/17/19 07/06/25 History glimepiride 4 mg tablet 4 mg PO QAM 11/17/19 07/06/25 History latanoprost 0.005 % eye drops 1 drop ophthalmic (eye) DAILY 11/17/19 07/06/25 History omeprazole 20 mg capsule,delayed 20 mg PO DAILY 11/17/19 07/06/25 History release terazosin 5 mg capsule 5 mg PO DAILY 11/17/19 07/06/25 History tramadol 50 mg tablet (Ultram) 50 mg PO HS #20 tabs 11/09/21 07/06/25 Rx amlodipine 10 mg tablet 10 mg PO DAILY 07/01/25 07/06/25 History insulin degludec 200 unit/mL (3 40 unit subcut DAILY 07/01/25 07/06/25 History mL) subcutaneous pen (Tresiba FlexTouch U-200 insulin) atorvastatin 10 mg tablet 10 mg PO QPM 07/02/25 07/06/25 History dapagliflozin propanediol 10 mg 10 mg PO DAILY 07/02/25 07/06/25 History tablet (Farxiga) fosinopril 20 mg tablet 20 mg PO DAILY 07/02/25 07/06/25 History primidone 50 mg tablet 50 mg PO Q12H 07/02/25 07/06/25 History docusate sodium 100 mg capsule 100 mg PO BID #10 caps 07/04/25 07/06/25 Rx hydrocodone 5 mg-acetaminophen 325 1 tablet PO Q4H PRN Pain Rated 4-6 07/04/25 07/06/25 Rx mg tablet #15 tabs Laboratory Tests 07/07/25 07/07/25 13:10 13:15 POC Capillary Glucose 123 H mg/dl (65-105) Amylase 52 U/L (30-110) Patient hx anesthesia problems: none Family hx anesthesia problems: none Results Review: All pre-operative results and documents have been reviewed as part of the pre-operative evaluation. [facility] Past Medical History Medical History BPH (benign prostatic hyperplasia) COVID Hypertension Osteoarthritis of lumbar spine Stroke Diabetes Last A1C= 8 Gout Surgical History Surgical History Kidney stones Removal History of knee surgery Right Total knee replacement, with subsequent patellectomy. Family History Family History Father Diabetes mellitus Hypertension Cerebrovascular accident Social History Social History Smoking status: Never smoker Alcohol intake: current Drinks per week: 6 Alcohol use details: occasional Substance use: never Substance use type: does not use Lack of Transportation: No Lack of Food: Never True Current Housing: I Have Housing Concerned About Future Housing: No Difficulty Paying Gas/Electric Bills: No Difficulty Paying for Meds: No Currently Unemployed: No Education: High School Diploma/GED Difficulty w/ Childcare or Family Care: No Living arrangements: with family Additional living arrangements comments: [facility] Occupation/Education: retired Spiritual care concerns: No Anes - Eval Final PreProcedure Day of Procedure 07/07/25 13:36 Patient weight: obese Lungs: normal air movement Airway: Mallampati scale class III and special considerations (Teeth on top aspect w chips/missing, none loose. ) Neurological: alert and oriented Last oral intake: >/= 8 hours ASA classification: III Emergent: no Anesthetic plan: proceed Anesthesia type and monitoring: general ETT and standard monitoring Results Review: All pre-operative results and documents have been reviewed as part of the pre-operative evaluation. HTN, DM fsbs 123 , pt had CVA 2018 w residual only of peripheral vision deficits. Pt active w mowing, golfing, walks without cp or sob. Informed Consent: The patient's anesthetic plan and its attendant risks and benefits were discussed with the patient/family/POA. Questions were solicited and answers provided to the satisfaction of the patient/family/POA.
[2025-07-07] MEDS: ceFAZolin 2 GM in SODIUM CHLORIDE 0.9% IV 50 ML 100 ML IVPB (14:06)
[2025-07-07] MEDS: BUPIVACAINE/EPINEPHRINE 0.5% 50 ML VIAL 20 ML INFILTRATE (14:31)
--- NOTE | 2025-07-07 15:09 | S_PTH ---
PATIENT: Neo Abraham Jr. LOC: [facility] U#:[id number] AGE/SX: 74/M ROOM: RE07/07/[address]: Aurea Huizar MD : 1950 BED: DIS: 07/07/2025 SPEC #: [id number] RECD: 07/08/25 08:12 STATUS: JAMES REQ #: [id number] BETTY: 07/07/25 15:[address]: Aurea Huizar DEPT: [facility] Surgical RECD BY: Franny Rocha ENTERED: 07/08/25 08:12 SP TYPE: Surgical OTHR DR: Wally Hunter, Tissues: A - Gallbladder Procedures: Hematoxylin and Eosin Stain Gross and Microscopic Level 3
[2025-07-07] MEDS: LACTATED RINGERS 1,000 ML 30 ML IV CONT ×2 (15:25)
--- NOTE | 2025-07-07 15:32 | W.PM.PROC2 ---
Procedure Note - Detailed Date of Procedure 07/07/25 Pre-op Diagnosis Biliary pancreatitis, cholelithiasis Post-op Diagnosis Same Procedure Performed Laparoscopic cholecystectomy Surgeon Aurea Huizar MD Anesthesia General and Local Indications 74-year-old male initially presenting with biliary pancreatitis, cholelithiasis. Now set up for interval cholecystectomy. Findings Moderate cholecystitis, cholelithiasis Description of Procedure The patient was taken to the operating room placed in the supine position. After adequate induction of general anesthesia, the patient was prepped and draped in normal sterile fashion. A time-out was then performed to verify the patient's identity as well as the procedure being performed. Of note, the patient has extensive scarring from previous blanco and skin graft on his abdomen. I largely tried to avoid the skin grafted areas. I then made a 5 mm incision in the infraumbilical region. Through this, a Veress needle was placed into the peritoneal cavity and CO2 gas was then insufflated. After adequate pneumoperitoneum was achieved, the Veress needle was removed and a 5 mm optiview trocar was placed through this incision under direct visualization. I then placed the laparoscope through this trocar site and under direct visualization placed a further 12 mm subxiphoid port as well as 2 additional 5 mm ports in the right upper abdomen. The gallbladder was then identified and was noted to be moderately inflamed, distended, and full of gallstones. There was multiple adhesions of the liver to the anterior abdominal wall and these were taken down with the Bovie cautery. I was able to place a grasper at the dome of the gallbladder and this was retracted anterior and cephalad up over the liver. A 2nd retractor was then placed at the infundibulum and retracted laterally, this allowed visualization of the triangle of Calot. The gallbladder was noted to have a large amount of adhesions to the surrounding omentum and these were taken down bluntly and sharply with the Bovie cautery. The gallbladder was also noted to be quite friable. After extensive dissection, I was able to visualize the cystic duct in its entirety from its proximal insertion into the gallbladder, to its distal junction with the common hepatic/common bile duct junction. At this point, I carefully skeletonized the proximal cystic duct with the [place] dissector. I then clipped and transected the proximal cystic duct. Next I visualized the cystic artery. Again the artery was skeletonized, clipped, and transected. I then used the Bovie cautery to take down the peritoneal attachments of the gallbladder off the liver bed. This was somewhat difficult given the amount of inflammation in the posterior space. Once the gallbladder specimen was completely detached, an endo-pouch was placed through the 12 mm port site. I then placed the gallbladder specimen into the Endo pouch and removed the endo-pouch from the 12 mm port site. The specimen will now be sent to pathology for further review. I then copiously irrigated the right upper quadrant. Hemostasis was noted in the liver bed, the clips were noted to be in good position on both the cystic duct stump and the cystic artery stump. No other pathology was noted in the right upper quadrant. I then moved the laparoscope to the subxiphoid port. No iatrogenic injury or other pathology was noted in the lower abdomen. I then closed the 12 mm trocar site under direct visualization using the Raulito cone and 0 Vicryl suture. At this point, the abdomen was desufflated and all ports removed. The subxiphoid port was closed with interrupted 3-0 nylon sutures. All other port sites were then closed with 4.O Monocryl subcuticular sutures. Dermabond was placed on each incision. The patient tolerated the procedure well, was extubated in the operating room postoperative and will be transferred to the recovery room in stable condition Estimated Blood Loss 10 Drains No Packing No Pathology Yes Complications No immediate complications Condition Stable Disposition PACU [facility] Billing Surgery - Charge Forward: Surgery Billing
[2025-07-07] MEDS: oxyCODONE HCL (*CRX) 5 MG TAB IR PO (17:05)
== END 2025-07-07 17:45 | disposition home or self-care (01) ==
PROVIDERS: PCP Internal Medicine; Visit Provider Surgery
PROC: 0FT44ZZ Resection of Gallbladder, Percutaneous Endoscopic Approach (ICD-10-PCS; CPT 47562; principal; 2025-07-07 14:30)
DX: K80.10 Calculus of gallbladder with chronic cholecystitis without obstruction (principal); K85.10 Biliary acute pancreatitis without necrosis or infection; E11.9 Type 2 diabetes mellitus without complications; I10 Essential (primary) hypertension; E66.9 Obesity, unspecified; Z68.33 Body mass index [BMI] 33.0-33.9, adult
CPT/HCPCS: 47562; 36415; 82150; 82948; 88304; J0690; A9270; J1100; J1885; J2250; J2405; J2704; J3010; J7030; J7120